=== PATIENT | male | born 1985 | race Caucasian/White ===

== ENCOUNTER 2018-01-16 22:58 | Inpatient (IN) | payer SELFPAY ==
[2018-01-16 22:57] VITALS: O2SAT 100
[~2018-01-16 22:58] MED LIST: ETOMIDATE 20 MG/10 ML VIAL IV PUSH ONE; LIDOCAINE HCL 2% 100 MG/5 ML SYRINGE IV PUSH ONE; MIDAZOLAM HCL 2 MG/2 ML VIAL IV PUSH ONE; SUCCINYLCHOLINE CHLORIDE 100 MG/5 ML SYRINGE IV PUSH ONE
[2018-01-16] MEDS ORDERED: DIPHTH/TETANUS/ACEL PERTUSSIS (BOOSTER) 0.5 ML VIAL/PFS IM ONE ×2 (23:01→23:14)
[2018-01-16] MEDS ORDERED: ceFAZolin 2 GM PREMIX 50 ML IV STA (23:01)
[2018-01-16] MEDS ORDERED: SODIUM CHLOR 0.9% 1000 ML INJ 1,000 ML IV SCH ×2 (23:01→23:49)
[2018-01-16 23:13] VITALS: O2SAT 100
[2018-01-16] MEDS ORDERED: ceFAZolin 2 GM PREMIX 50 ML ONE (23:14)
--- NOTE | 2018-01-16 23:20 | RADRPT ---
EXAM DATE/TIME: 01/16/2018 22:23 [facility] COMPARISON: No previous studies available for comparison. INDICATIONS : Trauma alert MEDICAL HISTORY : None. SURGICAL HISTORY : None. ENCOUNTER: Initial ACUITY: 1 day PAIN SCORE: Non-responsive. LOCATION: Bilateral chest FINDINGS: 2 AP supine views of the chest were obtained and demonstrate an endotracheal tube in place with the t ip approximately 2 cm above the tyree. There is mild hazy opacity in the right perihilar region and left lung base. The heart and mediastinal structures within normal limits. The bony thorax is intact in appearance. There is mild motion artifact. There is no visualized pneumothorax. CONCLUSION: 1. Suboptimal examination due to motion artifact and overlying artifact. 2. Mild hazy opacity in the right perihilar region and left lung base which could represent aspiratio n or lung contusion. Julio C Koroma MD on January 16, 2018 at 23:16 Board Certified Radiologist. This report was verified electronically.
--- NOTE | 2018-01-16 23:21 | RADRPT ---
EXAM DATE/TIME: 01/16/2018 22:23 [facility] COMPARISON: No previous studies available for comparison. INDICATIONS : Trauma alert MEDICAL HISTORY : None. SURGICAL HISTORY : None. ENCOUNTER: Initial ACUITY: 1 day PAIN SCORE: Non-responsive. LOCATION: Bilateral pelvis FINDINGS: A single AP view of the pelvis was obtained. There is mild motion artifact and overlying artifact. Th ere is a linear band of lucency projected over the mid left sacrum. The pubic rami and hips are intac t in appearance. The iliac wings appear unremarkable. CONCLUSION: 1. Suboptimal single view study secondary to motion artifact. 2. Apparent left sacral fracture. Julio C Koroma MD on January 16, 2018 at 23:18 Board Certified Radiologist. This report was verified electronically.
[2018-01-16 23:25] LABS: AUTOMATED NEUTROPHIL # 7.4 TH/MM3 (1.8-7.7); BASOPHIL # 0.1 TH/MM3 (0-0.2); BASOPHIL % 0.6 % (0.0-2.0); EOSINOPHIL # 0.1 TH/MM3 (0-0.4); HEMATOCRIT 35.1 % (39.0-51.0); HEMOGLOBIN 11.8 GM/DL (13.0-17.0); LYMPH % 25.4 % (9.0-44.0); LYMPHOCYTE # 2.8 TH/MM3 (1.0-4.8); MEAN CELL VOLUME 94.8 FL (80.0-100.0); MEAN CORPUSCULAR HEMOGLOBIN 31.7 PG (27.0-34.0); MEAN CORPUSCULAR HGB CONC 33.5 % (32.0-36.0); MEAN PLATELET VOLUME 6.5 FL (7.0-11.0); MONO % 6.6 % (0.0-8.0); MONOCYTE # 0.7 TH/MM3 (0-0.9); NEUT % 66.4 % (16.0-70.0); PLATELET COUNT 261 TH/MM3 (150-450); RED BLOOD COUNT 3.71 MIL/MM3 (4.50-5.90); WHITE BLOOD COUNT 11.2 TH/MM3 (4.0-11.0)
[2018-01-16] MEDS ORDERED: MIDAZOLAM 100 MG/100 ML INJ 100 ML ONE (23:27)
[2018-01-16] MEDS ORDERED: fentaNYL DRIP 250 ML ONE (23:27)
[2018-01-16] MEDS ORDERED: MIDAZOLAM HCL 5 MG/ML VIAL (1 ML) ONE (23:27)
[2018-01-16] MEDS ORDERED: IOHEXOL 350 MG/ML 10 ML VIAL (for RAD DIAG) IVCONTRAST ONE (23:28)
--- NOTE | 2018-01-16 23:28 | RADRPT ---
EXAM DATE/TIME: 01/16/2018 23:02 [facility] COMPARISON: No previous studies available for comparison. INDICATIONS : Trauma; fall. RADIATION DOSE: 56.35 CTDIvol (mGy) MEDICAL HISTORY : Non-responsive. SURGICAL HISTORY : Non-responsive. ENCOUNTER: Initial ACUITY: 1 day PAIN SCALE: Non-responsive LOCATION: cranial TECHNIQUE: Multiple contiguous axial images were obtained of the head. Using automated exposure control and adj ustment of the mA and/or kV according to patient size, radiation dose was kept as low as reasonably a chievable to obtain optimal diagnostic quality images. DICOM format image data is available electro nically for review and comparison. FINDINGS: CEREBRUM: The ventricles are normal for age. No evidence of midline shift, mass lesion, hemorrhage or acute in farction. No extra-axial fluid collections are seen. POSTERIOR FOSSA: The cerebellum and brainstem are intact. The 4th ventricle is midline. The cerebellopontine angle i s unremarkable. EXTRACRANIAL: The visualized portion of the orbits is intact. SKULL: There is a nondisplaced right occipital bone fracture which extends from the region of the foramen ma gnum cephalad up to the posterior vertex of the skull. There is extensive soft tissue swelling along the posterior vertex of the skull. There is a small air-fluid level in the right maxillary sinus. CONCLUSION: 1. Nondisplaced right occipital skull fracture. 2. No intracranial hemorrhage or mass effect. Julio C Koroma MD on January 16, 2018 at 23:23 Board Certified Radiologist. This report was verified electronically.
[2018-01-16] MEDS ORDERED: MIDAZOLAM 100 MG/100 ML INJ 100 ML IV PRN (23:30)
[2018-01-16] MEDS ORDERED: fentaNYL DRIP 250 ML IV PRN (23:30)
[2018-01-16] MEDS ORDERED: MIDAZOLAM HCL 2 MG/2 ML VIAL IV PUSH ONE (23:30)
--- NOTE | 2018-01-16 23:32 | RADRPT ---
EXAM DATE/TIME: 01/16/2018 23:02 [facility] COMPARISON: No previous studies available for comparison. INDICATIONS : Trauma; fall. RADIATION DOSE: 26.35 CTDIvol (mGy) MEDICAL HISTORY : Non-responsive. SURGICAL HISTORY : Non-responsive. ENCOUNTER: Initial ACUITY: 1 day PAIN SCORE: Non-responsive LOCATION: facial TECHNIQUE: Volumetric scanning of the facial bones was performed. Using automated exposure control and adjustme nt of the mA and/or kV according to patient size, radiation dose was kept as low as reasonably achiev able to obtain optimal diagnostic quality images. DICOM format image data is available electronicall y for review and comparison. FINDINGS: ORBITS: The orbital and infraorbital osseous structures are intact. The retroconal structures have a normal configuration. No radiopaque foreign bodies are seen. NASAL BONE: The nasal bone and maxillary spine are intact ZYGOMATIC ARCHES: Symmetric without evidence of fracture. SINUSES: The maxillary, ethmoid and frontal sinuses are intact. There is a small air-fluid level in right maxi llary sinus. The right central incisor is missing. NASAL CAVITY: The nasal septum is intact and midline. The lacrimal ducts are intact. There is soft tissue density throughout the central nasal passages. SOFT TISSUES: No radiopaque foreign bodies seen. No soft-tissue swelling is seen. INTRACRANIAL: No intracranial air seen. CRIBIFORM PLATE: Grossly intact. CONCLUSION: 1. Small air-fluid level in right maxillary sinus with no facial fracture. 2. Missing right central incisor. Julio C Koroma MD on January 16, 2018 at 23:26 Board Certified Radiologist. This report was verified electronically.
--- NOTE | 2018-01-16 23:35 | RADRPT ---
EXAM DATE/TIME: 01/16/2018 23:02 [facility] COMPARISON: No previous studies available for comparison. INDICATIONS : Trauma; fall. RADIATION DOSE: 16.88 CTDIvol (mGy) MEDICAL HISTORY : Non-responsive. SURGICAL HISTORY : Non-responsive. ENCOUNTER: Initial ACUITY: 1 day PAIN SCALE: Non-responsive LOCATION: neck TECHNIQUE: Volumetric scanning of the cervical spine was performed. Multiplanar reconstructions i n the sagittal, coronal and oblique axial planes were performed. Using automated exposure control a nd adjustment of the mA and/or kV according to patient size, radiation dose was kept as low as reason ably achievable to obtain optimal diagnostic quality images. DICOM format image data is available e lectronically for review and comparison. FINDINGS: The sagittal reconstructions demonstrate normal alignment and normal prevertebral soft tissues. The d ens is intact and there is a normal atlantoaxial relationship. The axial images demonstrate that the vertebral bodies and posterior elements are intact. The soft ti ssues are within normal limits. There is no evidence of acute fracture or malalignment. The known rig ht occipital fracture is again visualized. There is a nondisplaced fracture involving the anterior me dial left first rib. CONCLUSION: 1. No cervical fracture. 2. Nondisplaced fracture of the left anterior first rib. 3. Visualization of the known right occipital fracture. Julio C Koroma MD on January 16, 2018 at 23:31 Board Certified Radiologist. This report was verified electronically.
[2018-01-16 23:43] LABS: INTERNATIONAL NORMALIZED RATIO 1.1 RATIO; PROTHROMBIN TIME - PATIENT 11.1 SEC (9.8-11.6)
--- NOTE | 2018-01-16 23:43 | PD ---
HPI Chief Complaint: Trauma (Alert) Time Seen by Provider: 22:58 Travel History International Travel<30 days: No Contact w/Intl Traveler<30days: No Traveled to known affect area: No (unable to assess travel due to unscious intuabted ) History of Present Illness HPI Patient is a 18 [id number] [place] in [facility] onto a boat dock has a obvious injury laceration to the back of his head covered in vomitus when the paramedics arrived due to airway instability and altered mental status and a GCS of 3. H He is intubated in the field by the paramedics and brought into the ER ... Vitals were 74/30 en route he is vitals were 74/30 in route and he is arriving boarded collared obvious a large amount of blood on the board and he is arriving boarded collared obvious and large amount of blood on the board with a 5 cm 5 cm laceration to the parietal left side. . Pupils are 3 mm equal bilaterally minimally reactive area. Patient's lungs on the FAST exam are up bilaterally patient's abdomen fast is negative. P Patient is stabilized with 2 L of fluid. . The ET tube ET tube tube is in place chest x-ray shows the ET tube is in place and pelvic x-ray shows no fracture. Patient is CT face head neck abdomen chest and is turned over to Dr. Nunez Ancef 2 g and tetanus IM is givenAncef 2 g and tetanus IM is given 2 L of fluid and patient is on the CT initial shows no signifi head bleed Dr. Nunez assumes care of the patient Dr. Nunez assumed care of the patient [facility] Social History Tobacco Use: No (unable to fully assess tobacco due to intubated sedated unconscious) Allergies-Medications (Allergen,Severity, Reaction): Coded Allergies: No Allergy Information Available (Unverified , 01/16/18) Review of Systems ROS Limitations: Intubated, Altered Mental Status, Unresponsive Physical Exam Narrative GENERAL: SKIN: Warm and dry. HEAD: + traumatic. Normocephalic. Large laceration with Large laceration with multiple hematomas multiple hematomas on the backboard from the left parietal area on the backboard from the left parietal area I can feel with my finger a deficit in the skull the skull seems intact. I can feel with my finger a deficit in the skull but the skull seems intact I do not feel any brain matter EYES: Pupils 3 mm 3 mm equal. No disconjugate gaze he is staring forward No disconjugate gaze he is staring forward no reaction to light no reaction to light. ENT: ET tube in placeET tube in place CARDIOVASCULAR: Regular rate and rhythm. Initially mildly hypotensive at 80/62 L of fluid brings her pressure up to 106/70 RESPIRATORY: No accessory muscle use. Clear to auscultation. Breath sounds equal bilaterally. Point of care bedside fast lungs are up bilaterally Point-of -care bedside fast lungs are up bilaterally GASTROINTESTINAL: Abdomen soft, non-tender, nondistended. Hepatic and splenic margins not palpable. Point of care bedside fast abdomen no free fluid in the abdomen fast negative [id number] bedside fast abdomen no free fluid in the abdomen fast negative MUSCULOSKELETAL: Extremities without clubbing, cyanosis, or edema. No obvious deformities. NEUROLOGICAL: Obtunded . Patient intubated and sedated, but GCS was 3 according to EMS prior to sedation for tube Data Data Last Documented VS Vital Signs Date Time Temp Pulse Resp B/P (MAP) Pulse Ox O2 Delivery O2 Flow Rate FiO2 01/17/18 00:00 100 01/17/18 00:00 93.2 01/17/18 00:00 75 21 91/50 (64) 100 Orders Orders I-Stat Profile (01/16/18 22:59) Complete Blood Count With Diff (01/16/18 22:59) Prothrombin Time / Inr (Pt) (01/16/18 22:59) Act Partial Throm Time (Ptt) (01/16/18 22:59) Type And Screen (01/16/18 22:59) Chest, Single Ap (01/16/18 22:59) Pelvis, Ap Only (Routine) (01/16/18 22:59) Ct Brain W/O Iv Contrast(Rout) (01/16/18 22:59) Ct Cerv Spine W/O Contrast (01/16/18 22:59) Ct Abd/Pel W Iv Contrast(Rout) (01/16/18 22:59) Ct Thorax/ Chest W Iv Contrast (01/16/18 22:59) Ct Facial Bones W/O Iv Cont (01/16/18 22:59) Iv Access Insert/Monitor (01/16/18 22:59) Ecg Monitoring (01/16/18 22:59) Oximetry (01/16/18 22:59) Oxygen Administration (01/16/18 22:59) Ed Poc Ultrasound (01/16/18 22:59) Nzba-Kcb-Pjbxig (Booster) Inj (Boostrix (01/16/18 23:14) Cefazolin 2 Gm Premix (Ancef 2 Gm Premix (01/16/18 23:14) Fentanyl Inj (Fentanyl Inj) (01/16/18 23:30) Midazolam Inj (Versed Inj) (01/16/18 23:30) Midazolam Inj (Versed Inj) (01/16/18 23:27) Midazolam 100 Mg/100 Ml Inj (Versed Inj) (01/16/18 23:27) Fentanyl Drip (Fentanyl Drip) (01/16/18 23:27) Iohexol 350 Inj (Omnipaque 350 Inj) (01/16/18 23:28) Cefazolin 2 Gm Premix (Ancef 2 Gm Premix (01/16/18 23:01) Xzky-Lgq-Divdbs (Booster) Inj (Boostrix (01/16/18 23:01) Sodium Chlor 0.9% 1000 Ml Inj (Ns 1000 M (01/16/18 23:01) Admit To Inpatient (01/16/18 ) Vital Signs (Adult) TOO.QSHIFT (01/16/18 23:49) Intake + Output TOO.Q8H (01/16/18 23:49) Neuro Checks TOO.Q1H (01/16/18 23:49) Activity Bed Rest (01/16/18 23:49) Diet Npo (01/17/18 Breakfast) ^ Orogastric Tube (01/16/18 23:49) Scd / Juan Alberto / Foot Pump TOO.QSHIFT (01/16/18 23:49) ^ Cervical Collar (01/16/18 23:49) Instruction (01/16/18 23:49) Complete Blood Count With Diff (01/17/18 06:00) Comprehensive Metabolic Panel (01/17/18 06:00) Sodium Chlor 0.9% 1000 Ml Inj (Ns 1000 M (01/16/18 23:49) Sodium Chloride 0.9% Flush (Ns Flush) (01/17/18 00:00) Enalaprilat Inj (Vasotec Inj) (01/17/18 00:00) Ondansetron Inj (Zofran Inj) (01/17/18 00:00) Pantoprazole Inj (Protonix Inj) (01/17/18 00:00) Multivitamin Inj (Mvi-12 Inj)... (01/17/18 02:00) Consult Wholesale Buyer (01/16/18 ) ^ Initiate Protocol (01/16/18 23:49) Instruction (01/16/18 23:49) [facility] Nursing Information (01/17/18 00:00) Chlorhexidine 2% Cloth (Chlorhexidine 2% (01/17/18 04:00) Chlorhexidine 2% Cloth (Chlorhexidine 2% (01/17/18 00:00) Mrsa Pcr Surveillance (01/16/18 23:49) Inpatient Certification (01/16/18 ) Consult Heidi Gts (01/16/18 ) Admit Order (Ed Use Only) (01/16/18 23:58) Consult Neurosurgery (01/17/18 00:00) Phosphorus (Po4) (01/17/18 06:00) Labs Laboratory Tests Test 01/16/18 00:00 01/16/18 23:00 Nasal Screen MRSA (PCR) MRSA NOT DETECTED White Blood Count 11.2 TH/MM3 Red Blood Count 3.71 MIL/MM3 Hemoglobin 11.8 GM/DL Bedside Hemoglobin 12.2 G/DL Hematocrit 35.1 % Bedside Hematocrit 36.0 % Mean Corpuscular Volume 94.8 FL Mean Corpuscular Hemoglobin 31.7 PG Mean Corpuscular Hemoglobin Concent 33.5 % Red Cell Distribution Width 14.0 % Platelet Count 261 TH/MM3 Mean Platelet Volume 6.5 FL Neutrophils (%) (Auto) 66.4 % Lymphocytes (%) (Auto) 25.4 % Monocytes (%) (Auto) 6.6 % Eosinophils (%) (Auto) 1.0 % Basophils (%) (Auto) 0.6 % Neutrophils # (Auto) 7.4 TH/MM3 Lymphocytes # (Auto) 2.8 TH/MM3 Monocytes # (Auto) 0.7 TH/MM3 Eosinophils # (Auto) 0.1 TH/MM3 Basophils # (Auto) 0.1 TH/MM3 CBC Comment DIFF FINAL Differential Comment Prothrombin Time 11.1 SEC Prothromb Time International Ratio 1.1 RATIO Activated Partial Thromboplast Time 23.3 SEC Bedside Sodium 138 MMOL/L Bedside Potassium 2.9 MMOL/L Bedside Chloride 103 MMOL/L Bedside Blood Urea Nitrogen 14 MG/DL Bedside Creatinine 1.3 MG/DL Bedside Glucose 224 MG/DL Ethyl Alcohol Level 354 MG/DL MDM Medical Decision Making Medical Screen Exam Complete: Yes Emergency Medical Condition: Yes Differential Diagnosis head bleed vs abdo intraabdominal injury vs fractured neck , vs cervical spine injury other. Narrative Course pt has head injury bleeding and unconscious , worry for severe head bleed vs cervical fracture vs etoh obtundation vs combination etoh and head injury with severe contusion to brain pt remains unconscious--> coma , admitted after CT reviewed with Dr Nunez , No obvious bleed on CT no obvious fracture , SICU trauma admit ICU Critical Care Narrative 30minutes cc time trauma bay time Diagnosis Primary Impression: Trauma Additional Impressions: Head injury Qualified Codes: S09.90XA - Unspecified injury of head, initial encounter Fall (on)(from) sidewalk curb, sequela Admitting Information Admitting Physician Requests: Admit Armando Baugh MD Jan 16, 2018 23:43
[2018-01-16] MEDS: MIDAZOLAM 100 MG/NS 100 ML DRIP Premix IV PRN (23:45)
[2018-01-16] MEDS: fentaNYL 2,500 MCG/NS 250 ML IV PRN (23:45)
--- NOTE | 2018-01-16 23:51 | PD.CONS ---
[facility] Service Critical Care Medicine Consult Requested By Primary Care Physician Unknown History of Present Illness Young gentleman in his 20s originally from [facility] fell [place] the causeway in [facility] onto a boat dock , has an obvious injury laceration to the back of his head covered in vomitus when the paramedics arrived. Due to an airway instability and altered mental status and a GCS of 3 he was intubated in the field by the paramedics and brought into the ER. On arrival his vitals were 74/30. He received IV fluid resuscitation and underwent a CT surveillance per trauma protocol. Review of Systems ROS Unable to obtain patient is sedated and intubated Past Family Social History Allergies: Coded Allergies: No Allergy Information Available (Unverified , 01/16/18) Past Medical History Unable to obtain Past Surgical History Unable to obtain Reported Medications Unable to obtain Active Ordered Medications Current Medications Medications (Trade) Dose Ordered Sig/Ree Route PRN Reason Start Time Stop Time Status Last Admin Dose Admin Sodium Chloride 1,000 ml @ 150 mls/hr Q6H40M IV 01/16/18 23:49 01/16/18 23:49 Sodium Chloride (NS Flush) 2 ml UNSCH PRN IV FLUSH FLUSH AFTER USING IV ACCESS 01/17/18 00:00 Enalaprilat (Vasotec Inj) 1.25 mg Q8H PRN IV PUSH SBP>180, DBP>95 01/17/18 00:00 Ondansetron HCl (Zofran Inj) 4 mg Q6H PRN IV PUSH NAUSEA OR VOMITING 01/17/18 00:00 01/17/18 00:56 Pantoprazole Sodium (Protonix Inj) 40 mg Q24H IVP 01/17/18 00:00 01/17/18 00:56 Multivitamins 10 ml/Thiamine HCl 100 mg/Folic Acid 1 mg/Sodium Chloride 511.2 ml @ 125 mls/hr Q24H IV 01/17/18 02:00 01/19/18 06:06 Miscellaneous Information 1 Q361D XX 01/17/18 00:00 Chlorhexidine Gluconate (Chlorhexidine 2% Cloth) 3 pack Taper DAILY@04 TOP 01/17/18 04:00 01/13/19 03:59 Chlorhexidine Gluconate (Chlorhexidine 2% Cloth) 3 pack UNSCH PRN TOP HYGIENIC CARE 01/17/18 00:00 Norepinephrine Bitartrate 250 ml @ 18.75 mls/ hr TITRATE PRN IV Maintain MAP > 65 mmHg 01/17/18 03:00 01/17/18 00:45 Sodium Chloride 2,000 ml @ 999 mls/hr Q2H1M ONCE IV 01/17/18 03:00 01/17/18 05:00 01/17/18 03:22 Miscellaneous Information D/C ICU ELECTROLYTE ORDERS... UNSCH PRN .XX SEE DOSE INSTRUCTIONS 01/17/18 03:15 Miscellaneous Information ICU - CALL ORDERING PHYSIC... UNSCH PRN .XX SEE DOSE INSTRUCTIONS 01/17/18 03:15 Potassium Chloride 100 ml @ 25 mls/hr UNSCH PRN IV ELECTROLYTE REPLACEMENT 01/17/18 03:15 Potassium Bicarb/ Potassium Chloride (K-Lyte Cl Eff) 50 meq UNSCH PRN PO ELECTROLYTE REPLACEMENT 01/17/18 03:15 Potassium Chloride 100 ml @ 50 mls/hr UNSCH PRN IV ELECTROLYTE REPLACEMENT 01/17/18 03:15 Magnesium Sulfate 4 gm/Sodium Chloride 108 ml @ 54 mls/hr UNSCH PRN IV ELECTROLYTE REPLACEMENT 01/17/18 03:15 Magnesium Sulfate 2 gm/Sodium Chloride 104 ml @ 52 mls/hr UNSCH PRN IV ELECTROLYTE REPLACEMENT 01/17/18 03:15 Magnesium Oxide (Mag-Ox) 800 mg UNSCH PRN PO ELECTROLYTE REPLACEMENT 01/17/18 03:15 Sodium Phosphate 30 mmol/Sodium Chloride 260 ml @ 43.333 mls/ hr UNSCH PRN IV ELECTROLYTE REPLACEMENT 01/17/18 03:15 Potassium Phosphate (K-Phos) 2,000 mg UNSCH PRN PO ELECTROLYTE REPLACEMENT 01/17/18 03:15 Potassium Phosphate 30 mmol/ Sodium Chloride 260 ml @ 43.333 mls/ hr UNSCH PRN IV ELECTROLYTE REPLACEMENT 01/17/18 03:15 Midazolam HCl 100 ml @ 2 mls/hr TITRATE PRN IV SEDATION 01/17/18 03:15 01/16/18 23:45 Fentanyl Citrate 250 ml @ 5 mls/hr TITRATE PRN IV Sedation 01/17/18 03:15 01/16/18 23:45 Family History Unable to obtain Social History Unable to obtain Physical Exam Vital Signs Vital Signs Date Time Temp Pulse Resp B/P (MAP) Pulse Ox O2 Delivery O2 Flow Rate FiO2 01/17/18 02:10 79 86/50 01/17/18 00:42 93.2 16 100 01/17/18 00:00 100 Physical Exam GENERAL: Well-nourished, well-developed patient. Sedated and intubated SKIN: Warm and dry. HEAD: Normocephalic. Trauma laceration on the back of the head. EYES: No scleral icterus. No injection or drainage. NECK: Supple, trachea midline. No JVD or lymphadenopathy. CARDIOVASCULAR: Regular rate and rhythm without murmurs, gallops, or rubs. RESPIRATORY: Breath sounds equal bilaterally. No accessory muscle use. GASTROINTESTINAL: Abdomen soft, non-tender, nondistended. MUSCULOSKELETAL: No cyanosis, or edema. BACK: Nontender without obvious deformity. NEURO EXAM: GCS: 3 Mental Status: He was are 3 mm equal and brisk. Laboratory Laboratory Tests Test 01/16/18 23:00 White Blood Count 11.2 Red Blood Count 3.71 Hemoglobin 11.8 Bedside Hemoglobin 12.2 Hematocrit 35.1 Bedside Hematocrit 36.0 Mean Corpuscular Volume 94.8 Mean Corpuscular Hemoglobin 31.7 Mean Corpuscular Hemoglobin Concent 33.5 Red Cell Distribution Width 14.0 Platelet Count 261 Mean Platelet Volume 6.5 Neutrophils (%) (Auto) 66.4 Lymphocytes (%) (Auto) 25.4 Monocytes (%) (Auto) 6.6 Eosinophils (%) (Auto) 1.0 Basophils (%) (Auto) 0.6 Neutrophils # (Auto) 7.4 Lymphocytes # (Auto) 2.8 Monocytes # (Auto) 0.7 Eosinophils # (Auto) 0.1 Basophils # (Auto) 0.1 CBC Comment DIFF FINAL Differential Comment Prothrombin Time 11.1 Prothromb Time International Ratio 1.1 Activated Partial Thromboplast Time 23.3 Bedside Sodium 138 Bedside Potassium 2.9 Bedside Chloride 103 Bedside Blood Urea Nitrogen 14 Bedside Creatinine 1.3 Bedside Glucose 224 Result Diagram: 01/16/182299 Imaging Last 24 hours Impressions Pelvis X-Ray 01/16/182258 Signed Impressions: Service Date/Time: Tuesday, January 16, 2018 22:23 - CONCLUSION: 1. Suboptimal single view study secondary to motion artifact. 2. Apparent left sacral fracture. Julio C Koroma MD Maxillofacial CT 01/16/182258 Signed Impressions: Service Date/Time: Tuesday, January 16, 2018 23:02 - CONCLUSION: 1. Small air-fluid level in right maxillary sinus with no facial fracture. 2. Missing right central incisor. Julio C Koroma MD Head CT 01/16/182258 Signed Impressions: Service Date/Time: Tuesday, January 16, 2018 23:02 - CONCLUSION: 1. Nondisplaced right occipital skull fracture. 2. No intracranial hemorrhage or mass effect. Julio C Koroma MD Chest X-Ray 01/16/182258 Signed Impressions: Service Date/Time: Tuesday, January 16, 2018 22:23 - CONCLUSION: 1. Suboptimal examination due to motion artifact and overlying artifact. 2. Mild hazy opacity in the right perihilar region and left lung base which could represent aspiration or lung contusion. Julio C Koroma MD Chest CT 01/16/182258 Signed Impressions: Service Date/Time: Tuesday, January 16, 2018 23:18 - CONCLUSION: 1. Multiple areas of alveolar consolidation in both lower lobes which could represent lung contusion and or aspiration. There is no pneumothorax. 2. Subtle nondisplaced fracture of the left medial first rib. Nondisplaced fracture through the left transverse process of the T11 vertebra. The vertebral bodies are intact. 3. Visualization of the previously noted left L1 transverse fracture and splenic laceration. Please see abdomen CT for further details. Julio C Koroma MD Cervical Spine CT 01/16/182258 Signed Impressions: Service Date/Time: Tuesday, January 16, 2018 23:02 - CONCLUSION: 1. No cervical fracture. 2. Nondisplaced fracture of the left anterior first rib. 3. Visualization of the known right occipital fracture. Julio C Koroma MD Abdomen/Pelvis CT 01/16/182258 Signed Impressions: Service Date/Time: Tuesday, January 16, 2018 23:18 - CONCLUSION: 1. Grade 2 splenic laceration involving the medial tip of the spleen with small surrounding hematoma. 2. Subtle nondisplaced oblique fracture through the inferior right lateral aspect of the L5 vertebral body. The other lumbar vertebral bodies are intact. The sacrum is intact as well. 3. Nondisplaced fracture through the left L1 transverse process. 4. Areas of consolidation in both posterior lower lobes which may represent contusion and/or aspiration. Please see chest CT for further details. Julio C Koroma MD Assessment and Plan Assessment and Plan Respiratory failure - Intubated for an airway protection - No weaning until neurologically improved - Underlying pulmonary contusion - Aspiration pneumonia/pneumonitis - CXR and ABG daily - DuoNeb's when necessary - Chest PT as tolerated Spleen laceration - Monitor H&H - Management per trauma surgeon Alcoholic ketoacidosis - Potassium, phosphate, magnesium replacement per protocol - IV hydration T and L-spine fracture - Neurosurgery consultation Nondisplaced occipital fracture - Per neurosurgeon DVT GI prophylaxis - Teds SCDs - Pharmacological DVT prophylaxis per trauma surgeon - Pepcid Critical Care: The total critical care time was 35 minutes. Time to perform other separately billable procedures was not included in the critical care time. Anand De La Cruz MD Jan 16, 2018 23:51
--- NOTE | 2018-01-16 23:54 | RADRPT ---
EXAM DATE/TIME: 01/16/2018 23:18 [facility] COMPARISON: No previous studies available for comparison. INDICATIONS : Trauma; fall. IV CONTRAST: 97 cc Omnipaque 350 (iohexol) IV ; Cumulative dose for multiple exams. ORAL CONTRAST: No oral contrast ingested. RADIATION DOSE: 5.13 CTDIvol (mGy) ; Combined studies - Thorax/Abdomen/Pelvis MEDICAL HISTORY : Non-responsive. SURGICAL HISTORY : Non-responsive. ENCOUNTER: Initial ACUITY: 1 day PAIN SCALE: Non-responsive LOCATION: abdomen TECHNIQUE: Volumetric scanning of the abdomen and pelvis was performed. Using automated exposure control and ad justment of the mA and/or kV according to patient size, radiation dose was kept as low as reasonably achievable to obtain optimal diagnostic quality images. DICOM format image data is available electro nically for review and comparison. FINDINGS: LOWER LUNGS: There are areas of consolidation in both posterior lung bases with no pneumothorax. LIVER: Homogeneous density without lesion. There is no dilation of the biliary tree. No calcified gallston es. SPLEEN: Spleen is small in size with a grade 2 laceration to the medial tip measuring approximately 1.3 cm. A small amount of surrounding hematoma. PANCREAS: Within normal limits. KIDNEYS: Normal in size and shape. There is no mass, stone or hydronephrosis. ADRENAL GLANDS: Within normal limits. VASCULAR: There is no aortic aneurysm. BOWEL/MESENTERY: The stomach, small bowel, and colon demonstrate no acute abnormality. There is no free intraperitone al air or fluid. ABDOMINAL WALL: Within normal limits. RETROPERITONEUM: There is no lymphadenopathy. BLADDER: No wall thickening or mass. REPRODUCTIVE: Within normal limits. INGUINAL: There is no lymphadenopathy or hernia. MUSCULOSKELETAL: There is a nondisplaced fracture through the left L1 transverse process. The is also a small nondispl aced oblique fracture through the right inferior lateral L5 vertebral body. The other vertebral justine s are intact. The sacrum is intact as well. CONCLUSION: 1. Grade 2 splenic laceration involving the medial tip of the spleen with small surrounding hematoma. 2. Subtle nondisplaced oblique fracture through the inferior right lateral aspect of the L5 vertebral body. The other lumbar vertebral bodies are intact. The sacrum is intact as well. 3. Nondisplaced fracture through the left L1 transverse process. 4. Areas of consolidation in both posterior lower lobes which may represent contusion and/or aspirati on. Please see chest CT for further details. Julio C Koroma MD on January 16, 2018 at 23:44 Board Certified Radiologist. This report was verified electronically.
[2018-01-16 23:55] VITALS: O2SAT 100
--- NOTE | 2018-01-16 23:59 | RADRPT ---
EXAM DATE/TIME: 01/16/2018 23:18 [facility] COMPARISON: No previous studies available for comparison. INDICATIONS : Trauma; fall. IV CONTRAST: 97 cc Omnipaque 350 (iohexol) IV ; Cumulative dose for multiple exams. RADIATION DOSE: 5.13 CTDIvol (mGy) ; Combined studies - Thorax/Abdomen/Pelvis MEDICAL HISTORY : Non-responsive. SURGICAL HISTORY : Non-responsive. ENCOUNTER: Initial ACUITY: 1 day PAIN SCALE: Non-responsive LOCATION: chest TECHNIQUE: Volumetric scanning of the chest was performed. Using automated exposure control and adjustment of t he mA and/or kV according to patient size, radiation dose was kept as low as reasonably achievable to obtain optimal diagnostic quality images. DICOM format image data is available electronically for review and comparison. Follow-up recommendations for detected pulmonary nodules are based at a minimum on nodule size and pa tient risk factors according to Fleischner Society Guidelines. FINDINGS: LUNGS: There is no pneumothorax. There are multiple areas of alveolar consolidative infiltrate in both lower lobes. No concerning pulmonary nodule is visualized. PLEURA: There is no pleural thickening or pleural effusion. MEDIASTINUM: The heart and great vessels demonstrate no acute abnormality. There is no mediastinal or hilar lymph adenopathy. There are multiple calcified mediastinal lymph nodes. AXILLAE: Within normal limits. No lymphadenopathy. SKELETAL: There is a subtle nondisplaced fracture involving the left anterior first rib. There is also a nondis placed fracture involving the T11 left transverse process. The known fracture of the L1 left transver se process is again visualized. MISCELLANEOUS: The grade 2 laceration to the medial aspect of the spleen is again visualized. Please see abdomen CT for further details. CONCLUSION: 1. Multiple areas of alveolar consolidation in both lower lobes which could represent lung contusion and or aspiration. There is no pneumothorax. 2. Subtle nondisplaced fracture of the left medial first rib. Nondisplaced fracture through the left transverse process of the T11 vertebra. The vertebral bodies are intact. 3. Visualization of the previously noted left L1 transverse fracture and splenic laceration. Please s ee abdomen CT for further details. Julio C Koroma MD on January 16, 2018 at 23:52 Board Certified Radiologist. This report was verified electronically.
[2018-01-17] VITALS (19 sets, daily range): BP systolic 85–136; BP diastolic 50–70; PULSE 69–116; RESP 16–21; TEMP 93.2–100.8; O2SAT 95–100
[2018-01-17] MEDS ORDERED: MISCELLANEOUS NURSING INFORMATION XX SCH
[2018-01-17] MEDS ORDERED: ENALAPRILAT 1.25 MG/ML VIAL IV PUSH PRN
[2018-01-17] MEDS ORDERED: CHLORHEXIDINE GLUCONATE 2 % 1 PACK (2 CLOTHS) TOP PRN
[2018-01-17] MEDS ORDERED: SODIUM CHLORIDE 0.9% FLUSH 10 ML FLUSH IV FLUSH PRN
[2018-01-17] MEDS ORDERED: NOREPINEPHRINE 4 MG/4 ML AMP ONE (00:52)
[2018-01-17] MEDS: PANTOPRAZOLE SODIUM 40 MG VIAL IVP SCH ×2 (00:56→23:48)
[2018-01-17] MEDS: ONDANSETRON HCL 4 MG/2 ML VIAL IV PUSH PRN (00:56)
[2018-01-17] MEDS: CHLORHEXIDINE GLUCONATE 2 % 1 PACK (2 CLOTHS) TOP SCH (01:10)
[2018-01-17] MEDS ORDERED: NOREPINEPHRINE 4 MG/D5W 250 ML IV PRN ×2 (03:00→05:00)
[2018-01-17] MEDS ORDERED: SODIUM CHLOR 0.9% 1000 ML INJ 2,000 ML IV ONE (03:00)
[2018-01-17] MEDS ORDERED: fentaNYL 2,500 MCG/NS 250 ML IV PRN (03:15)
[2018-01-17] MEDS ORDERED: ICU - POTASSIUM CHLORIDE/AQUEOUS SOLN 40 MEQ/100 ML IVPB IV PRN (03:15)
[2018-01-17] MEDS ORDERED: ICU - MAGNESIUM SULFATE 4 GM/NS 100 ML IV PRN ×2 (03:15)
[2018-01-17] MEDS ORDERED: ICU - MAGNESIUM SULFATE 2 GM/NS 100 ML IV PRN ×2 (03:15)
[2018-01-17] MEDS ORDERED: ICU - POTASSIUM PHOSPHATE MONOBASIC 500 MG TAB PO PRN (03:15)
[2018-01-17] MEDS ORDERED: ICU - MAGNESIUM OXIDE 400 MG TAB PO PRN (03:15)
[2018-01-17] MEDS ORDERED: ICU - POTASSIUM PHOSPHATE 30 MMOL/NS 250 ML IV PRN ×2 (03:15)
[2018-01-17] MEDS ORDERED: POTASSIUM CHLORIDE 25 MEQ EFFERVESCENT TAB PO PRN ×2 (03:15→03:45)
[2018-01-17] MEDS ORDERED: ICU - CALL ORDERING PHYSICIAN PRN (03:15)
[2018-01-17] MEDS ORDERED: ICU - D/C ICU ELECTROLYTE ORDERS PRN (03:15)
[2018-01-17] MEDS ORDERED: ICU - POTASSIUM CHLORIDE/AQUEOUS SOLN 20 MEQ/100 ML IVPB IV PRN (03:15)
[2018-01-17] MEDS ORDERED: ICU - SODIUM PHOSPHATE 30 MMOL/NS 250 ML IV PRN ×2 (03:15)
[2018-01-17] MEDS ORDERED: MIDAZOLAM 100 MG/NS 100 ML DRIP Premix IV PRN (03:15)
--- NOTE | 2018-01-17 03:32 | PD.PROCEDR ---
Procedure Note Procedure Central line placement A time-out was completed verifying correct patient, procedure, site, positioning , and special equipment if applicable. The patient was placed in a dependent position appropriate for central line placement based on the vein to be cannulated. The patients right shoulder was prepped and draped in sterile fashion. 1% Lidocaine was used to anesthetize the surrounding skin area. A triple lumen 9-N[place] Cordis catheter was introduced into the the right subclavian vein using the Seldinger technique. The catheter was threaded smoothly over the guide wire and appropriate blood return was obtained. Each lumen of the catheter was evacuated of air and flushed with sterile saline. The catheter was then sutured in place to the skin and a sterile dressing applied. Perfusion to the extremity distal to the point of catheter insertion was checked and found to be adequate. Estimated Blood Loss: 1ml The patient tolerated the procedure well and there were no complications. Anand De La Cruz MD Jan 17, 2018 03:32
--- NOTE | 2018-01-17 03:34 | RADRPT ---
EXAM DATE/TIME: 01/17/2018 02:59 [facility] COMPARISON: CHEST SINGLE AP, January 16, 2018, 22:23. INDICATIONS : Central line placement. MEDICAL HISTORY : None. SURGICAL HISTORY : None. ENCOUNTER: Initial ACUITY: 1 day PAIN SCORE: Non-responsive. LOCATION: Bilateral chest FINDINGS: A single AP semierect view of the chest was obtained and demonstrates interval placement of a nasogas tric tube which is seen coursing through the esophagus into the stomach. The endotracheal tube remain s in place with the tip approximately 3 cm above the tyree. There has been placement of a left subcl mattie central venous line with tip projected over the superior vena cava. There is no pneumothorax. N ew hazy alveolar opacities are present in the perihilar regions and both lung bases. The heart size i s within normal limits. There is no effusion. CONCLUSION: 1. Interval placement of right subclavian central venous line with no pneumothorax. 2. Interval placement of nasogastric tube. 3. New bibasilar and perihilar alveolar opacities which may represent pulmonary edema, contusion or a spiration. Julio C Koroma MD on January 17, 2018 at 3:31 Board Certified Radiologist. This report was verified electronically.
[2018-01-17] MEDS ORDERED: SODIUM PHOSPHATE INJ 30 MMOL in SODIUM CHLOR 0.9% 250 ML INJ 240 ML IV PRN (03:45)
[2018-01-17] MEDS ORDERED: MAGNESIUM SULFATE INJ 4 GM in SODIUM CHLORIDE 0.9% INJ 92 ML IV PRN (03:45)
[2018-01-17] MEDS ORDERED: POTASSIUM PHOSPHATE MONOBASIC 500 MG TAB PO/TUBE PRN (03:45)
[2018-01-17] MEDS ORDERED: POTASSIUM CHLOR 40 MEQ PREMIX 100 ML IV PRN (03:45)
[2018-01-17] MEDS ORDERED: POTASSIUM CHLOR 20 MEQ PREMIX 100 ML IV PRN ×2 (03:45)
[2018-01-17] MEDS ORDERED: MAGNESIUM SULFATE INJ 2 GM in SODIUM CHLORIDE 0.9% INJ 96 ML IV PRN (03:45)
[2018-01-17] MEDS ORDERED: POTASSIUM PHOSPHATE MONOBASIC 500 MG TAB PO PRN (03:45)
[2018-01-17] MEDS ORDERED: MAGNESIUM OXIDE 400 MG TAB PO PRN (03:45)
[2018-01-17] MEDS ORDERED: VASOPRESSIN INJ 40 UNITS in DEXTROSE 5% IN WATER 100ML INJ 98 ML IV SCH ×2 (04:14)
[2018-01-17] MEDS ORDERED: SODIUM BICARBONATE 8.4% SOLN 50 MEQ/50 ML VIAL IV ONE (04:15)
[2018-01-17] MEDS ORDERED: VASOPRESSIN 20 UNITS/ML VIAL ONE (04:20)
[2018-01-17] MEDS: MULTIVITAMIN INJ 10 ML, THIAMINE INJ 100 MG, FOLIC ACID INJ 1 MG in SODIUM CHLORID 0.9%... IV SCH (04:39)
[2018-01-17 04:43] LABS: BASOPHIL % 0.6 % (0.0-2.0); EOSINOPHIL % 0.1 % (0.0-4.0); HEMATOCRIT 35.3 % (39.0-51.0); LYMPH % 27.8 % (9.0-44.0); LYMPHOCYTE # 0.4 TH/MM3 (1.0-4.8); MEAN CELL VOLUME 89.9 FL (80.0-100.0); MEAN CORPUSCULAR HEMOGLOBIN 30.4 PG (27.0-34.0); MEAN CORPUSCULAR HGB CONC 33.8 % (32.0-36.0); MEAN PLATELET VOLUME 6.5 FL (7.0-11.0); MONOCYTE # 0.1 TH/MM3 (0-0.9); NEUT % 65.5 % (16.0-70.0); PLATELET COUNT 192 TH/MM3 (150-450); RED BLOOD COUNT 3.93 MIL/MM3 (4.50-5.90); RED CELL DISTRIBUTION WIDTH 16.9 % (11.6-17.2); WHITE BLOOD COUNT 1.5 TH/MM3 (4.0-11.0)
[2018-01-17] MEDS: VASOPRESSIN INJ 40 UNITS in SODIUM CHLORIDE 0.9% INJ 98 ML IV SCH (05:00)
[2018-01-17 05:11] LABS: ALBUMIN 2.3 GM/DL (3.4-5.0); BICARBONATE 16.8 MEQ/L (21.0-32.0); CALCIUM 5.9 MG/DL (8.5-10.1); CREATININE 0.52 MG/DL (0.60-1.30); PHOSPHORUS 2.7 MG/DL (2.5-4.9); TOTAL BILIRUBIN ADULT 0.4 MG/DL (0.2-1.0); TOTAL PROTEIN 4.7 GM/DL (6.4-8.2)
[2018-01-17] MEDS ORDERED: RESP: ALBUTEROL 2.5 MG/IPRATROPIUM 0.5 MG NEB (PRN) NEB (05:45)
[2018-01-17] MEDS: NOREPINEPHRINE INJ 4 MG in SODIUM CHLOR 0.9% 250 ML INJ 250 ML IV PRN ×2 (06:09→08:15)
[2018-01-17] MEDS: POTASSIUM CHLOR 40 MEQ PREMIX 100 ML IV PRN ×2 (06:48→10:31)
[2018-01-17] MEDS: RESP: ALBUTEROL 2.5 MG/IPRATROPIUM 0.5 MG NEB (SCH) NEB ×3 (07:32→20:03)
[2018-01-17 07:38] LABS: NEUTROPHIL # MANUAL DIFF 0.9 TH/MM3 (1.8-7.7)
[2018-01-17 07:39] LABS: BANDS 26 % (0-6); LYMPHOCYTES 37 % (9-44); METAMYELOCYTES 1 % (0-1); MONOCYTES 2 % (0-8); POLYS (SEG NEUTROPHILS) 34 % (16-70)
[2018-01-17 07:41] LABS: OVALOCYTES 1+ (NORMAL)
[2018-01-17] MEDS: CHLORHEXIDINE 0.12% (ORAL KIT) 15 ML CUP MT SCH ×2 (08:00→20:12)
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
[2018-01-17] MEDS ORDERED: CALCIUM GLUCONATE INJ 1 GM in DEXTROSE 5% IN WATER 100ML INJ 100 ML IV ONE ×2 (10:00)
[2018-01-17] MEDS: AMPICILLIN-SULBACTAM INJ 3 GM in SODIUM CHLORIDE 0.9% INJ 100 ML IV SCH ×3 (10:31→21:27)
[2018-01-17] MEDS: LACTATED RINGER'S 1000 ML INJ 1,000 ML IV SCH ×2 (10:31→21:24)
[2018-01-17] MEDS ORDERED: GELFOAM SIZE 100 ONE (11:00)
[2018-01-17] MEDS ORDERED: BUPIVACAINE/EPINEPHRINE 0.5% PF 30 ML VIAL ONE (11:00)
[2018-01-17] MEDS ORDERED: THROMBIN (TOPICAL) 5,000 UNIT VIAL ONE (11:00)
[2018-01-17] MEDS ORDERED: GENTAMICIN SULFATE 80 MG/2 ML VIAL ONE (11:13)
[2018-01-17] MEDS ORDERED: LIDOCAINE HCL 1% PF 5 ML SYRINGE OTHER ONE (12:00)
[2018-01-17] MEDS ORDERED: PROPOFOL 200 MG/20 ML AMP IV ONE (12:00)
[2018-01-17] MEDS ORDERED: VECURONIUM BROMIDE 20 MG VIAL IV ONE (12:00)
[2018-01-17] MEDS ORDERED: SODIUM CHLORIDE 0.9% 20 ML VIAL IV ONE (12:00)
[2018-01-17] MEDS ORDERED: ceFAZolin INJ 1,000 MG VIAL IV ONE ×2 (12:00→12:12)
[2018-01-17] MEDS ORDERED: ROCURONIUM INJ 50 MG/5 ML SYRINGE IV PUSH ONE (12:00)
[2018-01-17] MEDS ORDERED: SODIUM BICARBONATE 8.4% INJ 50 MEQ/50 ML SYR ONE ×2 (12:03→12:05)
[2018-01-17] MEDS ORDERED: BACITRACIN TOP OINT 15 GM TUBE ONE (12:15)
[2018-01-17] MEDS: MIDAZOLAM 100 MG/NS 100 ML DRIP Premix IV PRN (13:15)
[2018-01-17] MEDS: fentaNYL 2,500 MCG/NS 250 ML IV PRN (13:15)
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
[2018-01-17 14:26] LABS: AUTOMATED NEUTROPHIL # 4.3 TH/MM3 (1.8-7.7); BASOPHIL % 0.2 % (0.0-2.0); HEMATOCRIT 29.6 % (39.0-51.0); HEMOGLOBIN 10.6 GM/DL (13.0-17.0); LYMPH % 12.9 % (9.0-44.0); LYMPHOCYTE # 0.7 TH/MM3 (1.0-4.8); MEAN CELL VOLUME 88.6 FL (80.0-100.0); MEAN CORPUSCULAR HEMOGLOBIN 31.7 PG (27.0-34.0); MEAN CORPUSCULAR HGB CONC 35.7 % (32.0-36.0); MEAN PLATELET VOLUME 6.5 FL (7.0-11.0); MONO % 9.5 % (0.0-8.0); MONOCYTE # 0.5 TH/MM3 (0-0.9); NEUT % 77.4 % (16.0-70.0); PLATELET COUNT 160 TH/MM3 (150-450); RED BLOOD COUNT 3.33 MIL/MM3 (4.50-5.90); WHITE BLOOD COUNT 5.5 TH/MM3 (4.0-11.0)
[2018-01-17 14:58] LABS: ALBUMIN 2.1 GM/DL (3.4-5.0); CALCIUM 6.3 MG/DL (8.5-10.1); CALCIUM-PROTEIN CORRECTED 7.6 MG/DL (8.5-10.1); CREATININE 0.68 MG/DL (0.60-1.30); PHOSPHORUS 1.6 MG/DL (2.5-4.9); TOTAL BILIRUBIN ADULT 0.5 MG/DL (0.2-1.0); TOTAL PROTEIN 4.5 GM/DL (6.4-8.2)
--- NOTE | 2018-01-17 15:49 | HHI.PR ---
Immediate Post Op Note Procedure Date: Jan 17, 2018 Pre Op Diagnosis: Stellate laceration of scalp, occipital skull fracture Post Op Diagnosis: Stellate laceration of scalp Surgeon: Edinson Sims Filter Press Operator(s): Mr. Berumen/Mr. Briceno Procedure: Debridement and repair of scalp laceration 4 cm Findings: Disruption of galea and periosteum. No fracture seen Complications: None Estimated blood loss: Less than 25 cc Anesthesia: General Drains: None IVF Patient Condition: Critical Date/Time of Procedure: SEE SURGICAL CARE RECORD Edinson Sims MD Jan 17, 2018 15:49
[2018-01-17] MEDS ORDERED: SODIUM CHLOR 0.9% 1000 ML INJ 1,000 ML IV ONE (18:00)
[2018-01-17] MEDS ORDERED: IOHEXOL 350 MG/ML 10 ML VIAL (for RAD DIAG) IVCONTRAST ONE (18:18)
--- NOTE | 2018-01-17 18:40 | RADRPT ---
EXAM DATE/TIME: 01/17/2018 18:12 [facility] COMPARISON: CT ABDOMEN & PELVIS W CONTRAST, January 16, 2018, 23:18. INDICATIONS : Follow up splenic injury. IV CONTRAST: 94 cc Omnipaque 350 (iohexol) IV ; Cumulative dose for multiple exams. ORAL CONTRAST: No oral contrast ingested. RADIATION DOSE: 10.51 CTDIvol (mGy) MEDICAL HISTORY : Non-responsive. SURGICAL HISTORY : Non-responsive. ENCOUNTER: Subsequent ACUITY: 1 day PAIN SCALE: Non-responsive LOCATION: abdomen TECHNIQUE: Volumetric scanning of the abdomen and pelvis was performed. Using automated exposure control and ad justment of the mA and/or kV according to patient size, radiation dose was kept as low as reasonably achievable to obtain optimal diagnostic quality images. DICOM format image data is available electro nically for review and comparison. FINDINGS: LOWER LUNGS: There are mild bilateral pleural effusions with accompanying areas of atelectasis or consolidation. LIVER: There is diffuse decreased attenuation to the liver compared to the spleen. Focal hepatic lesions are not seen. There is no dilation of the biliary tree. No calcified gallstones. This increased densit y within the gallbladder likely related to vicarious excretion of previously administered contrast. SPLEEN: Again noted is low density at the superior medial aspect of the spleen from prior injury. Acute hemor rhage is no longer seen. PANCREAS: Within normal limits. KIDNEYS: Normal in size and shape. There is no mass, stone or hydronephrosis. ADRENAL GLANDS: Within normal limits. VASCULAR: There is no aortic aneurysm. BOWEL/MESENTERY: There is an NG tube in place. There is a mild amount of free fluid seen in the peroneal cavity in the pelvis and paracolic gutter regions. There small amount of free fluid seen over the liver and spleen . ABDOMINAL WALL: Within normal limits. RETROPERITONEUM: There is no lymphadenopathy. BLADDER: There is a Messina catheter in place. There is air within the urinary bladder. REPRODUCTIVE: Within normal limits. INGUINAL: There is no lymphadenopathy or hernia. MUSCULOSKELETAL: There is fracturing of the left L1 transverse process. Again noted is fracturing of the inferior righ t lateral aspect of the L5 vertebral body. CONCLUSION: 1. Low density at the superior medial aspect of the spleen from the prior injury. Acute extravasation is not seen on the current exam. 2. Mild amount of free fluid in the peroneal cavity in the around the superior aspect of the liver an d spleen, inferior paracolic gutter regions, and in the pelvis. 3. Mild hepatic steatosis. 4. Bilateral areas of mild pleural effusion and atelectasis or consolidation. These findings have pro gressed since the prior exam. 5. Left L1 transverse process fracture and L5 vertebral body fracture. These were previously describe d. Nicolas Wells MD on January 17, 2018 at 18:31 Board Certified Radiologist. This report was verified electronically.
--- NOTE | 2018-01-17 18:42 | MB ---
cc: Edinson HERNNADEZ DATE: 01/17/2018 DATE OF EVALUATION: 01/17/2018 CHIEF COMPLAINT: Fall. HISTORY OF PRESENT ILLNESS: This is a patient of unknown age, who was found in an embankment under a bridge. He was thought to have fallen approximately 30 feet. He had a GCS of 3 at the scene, was intubated and brought to the hospital for evaluation. The patient was placed in a cervical collar and underwent evaluation by trauma and neurosurgery consultation was placed because of an occipital skull fracture and some spine fractures. PAST MEDICAL HISTORY: Not available. FAMILY HISTORY: Not available. MEDICATIONS: Not available. REVIEW OF SYSTEMS: Not obtainable. PHYSICAL EXAMINATION: VITAL SIGNS: Blood pressure of 121/70, respiratory rate of 20, pulse of 90, temperature of 100.8. HEENT: Shows a significant stellate laceration over the occipital area. NECK: In a Golden J collar, is midline. LUNGS: The patient is intubated on a respirator. Lungs appeared to be clear with some coarse rhonchi. Chest is symmetric. HEART: Shows a regular rhythm with normal heart sounds. ABDOMEN: Soft and nontender. GENITALIA: Normal for male. EXTREMITIES: Clear with some mild abrasions. NEUROLOGIC: The patient is comatose. He is intubated on a respirator. Does not follow commands. He is sedated. Pupils appear equal and poorly reactive. He does not respond to pain. DIAGNOSTIC STUDIES: CT of the head did not show any significant intracranial hemorrhage or injury. There is evidence of a right occipital skull fracture. CT of the cervical spine show no evidence of fracture. CT of the chest shows a possible T12 transverse process fracture. CT of the abdomen and pelvis shows an L1 transverse process fracture and a small chip fracture off the body of L5 on the lateral aspect on the right. Alcohol level was 354 and a urine was positive for benzodiazepine. OVERALL IMPRESSION: Occipital skull fracture, possible traumatic brain injury, although no intracranial injury is seen at the present time; L5 body fracture and transverse process fracture of L1. PLAN: After discussion with the trauma physician, I plan to take the patient to the operating room to close the wound due to the possibility of an open fracture. He will also have a repeat CT of the lumbar spine after the procedure is performed. Fransinai WHITE , 03:43 PM , 06:[address] [facility]
--- NOTE | 2018-01-17 18:48 | RADRPT ---
EXAM DATE/TIME: 01/17/2018 18:12 [facility] COMPARISON: No previous studies available for comparison. INDICATIONS : Evaluate fractures. IV CONTRAST: 94 cc Omnipaque 350 (iohexol) IV ; Cumulative dose for multiple exams. RADIATION DOSE: ; Reconstructed from previous dataset, no dose MEDICAL HISTORY : Non-responsive. SURGICAL HISTORY : Non-responsive. ENCOUNTER: Subsequent ACUITY: 1 day PAIN SCALE: Non-responsive LOCATION: lumbar TECHNIQUE: Volumetric scanning of the lumbar spine was performed. Multiplanar reconstructions in the sagittal, coronal and oblique axial planes were performed. Using automated exposure control and adjustment of the mA and/or kV according to patient size, radiation dose was kept as low as reasonably achievable t o obtain optimal diagnostic quality images. DICOM format image data is available electronically for review and comparison. FINDINGS: CONUS MEDULLARIS: Normal. PARASPINAL SOFT TISSUES: Normal. LUMBAR CORD: Normal. DURAL SAC: Normal. L1-L2: The disc, uncovertebral joints, central canal, foramina, and facets are normal. L2-L3: The disc, uncovertebral joints, central canal, foramina, and facets are normal. L3-L4: The disc, uncovertebral joints, central canal, foramina, and facets are normal. L4-L5: The disc, uncovertebral joints, central canal, foramina, and facets are normal. L5-S1: The disc, uncovertebral joints, central canal, foramina, and facets are normal. CONCLUSION: 1. Fracturing of the anterior inferior right lateral aspect of L5 vertebral body. 2. Fracturing at the left L1 transverse process. Nicolas Wells MD on January 17, 2018 at 18:42 Board Certified Radiologist. This report was verified electronically.
--- NOTE | 2018-01-17 19:44 | MP ---
cc: ,Edinson Dan DATE OF OPERATION: 01/17/2018 PREOPERATIVE DIAGNOSIS: Stellate laceration of the occipital scalp, right occipital skull fracture. POSTOPERATIVE DIAGNOSIS: Stellate laceration of occipital scalp. PROCEDURE PERFORMED: Debridement and repair of scalp laceration, 4 cm. SURGEON: Edinson Sims MD ASSISTANTS Mr. Berumen/Mr. Salamanca ESTIMATED BLOOD LOSS Less than 25 mL. ANESTHESIA: General. DETAILS OF PROCEDURE: The patient was taken to the operating room from the surgical intensive care unit. He was placed under general anesthesia and monitored closely. The patient was previously intubated in the intensive care unit. The patient's occipital scalp was then shaved with an electric razor. The area of the laceration was then prepped and draped in usual sterile fashion. Once this was accomplished, the wound was inspected and debrided. Multiple small hairs were removed from inside the wound. The wound was then further cleaned and debrided utilizing a pulse lavage machine. Once the wound was cleaned, hemostasis was obtained with electrocautery. Inspection was undertaken. There was disruption of the galea and disruption of the periosteum. No kieran fracture was seen of the bone. Once the area was fully inspected, repair was undertaken. The central portions of the wound were approximated initially with 3-0 Prolene in a mattress interrupted fashion. Once this was accomplished, the remaining areas of laceration were repaired utilizing surgical johnna until all areas were approximated. There were 4 main flaps and smaller lacerations were also closed utilizing johnna. During the procedure, the patient was found to be acidotic and correction was undertaken by the anesthesiologist. He remained on vasopressors to control his blood pressure, but remained fairly stable throughout the procedure. Once the wound was clean and closed, sterile dressing was applied to the head and it was placed in a donut. The patient was taken back to the intensive care unit and escorted by anesthesia. Edinson SINGH//rafa , 03:54 PM , 07:07 PM [facility]
[2018-01-17] MEDS: POTASSIUM PHOSPHATE INJ 30 MMOL in SODIUM CHLOR 0.9% 250 ML INJ 250 ML IV PRN (20:12)
--- NOTE | 2018-01-17 20:53 | HHI.CCPN ---
Subjective Brief History This is a patient who was found on an embankment under a bridge. He was thought to have fallen from a height of approximately 30 feet. He had a GCS of 3 at the scene, was intubated at the scene, brought in as a Trauma Alert. On arrival the patient was on backboard and C-collar, unable to give a history or review of systems. By reports, the paramedics said he had a blood pressure in the 70s initially, which responded to fluids up into the 90s systolic. Patient was resuscitated according trauma principles Final diagnosis Loss of consciousness probable brain concussion with heavy EtOH intoxication Open skull fracture with laceration in the parieto-occipital area No apparent brain injury Bilateral chest contusions and lung contusions Grade 2 splenic laceration L1 /L5 fracture Objective Vital Signs Date Time Temp Pulse Resp B/P (MAP) Pulse Ox O2 Delivery O2 Flow Rate FiO2 01/17/18 20:08 100 50 01/17/18 19:08 95 101/45 01/17/18 16:00 99.7 20 Intake and Output 01/17/18 01/17/18 01/18/18 08:00 16:00 00:00 Intake Total 2900 ml 3910 ml 250 ml Output Total 1550 ml 575 ml 3200 ml Balance 1350 ml 3335 ml -2950 ml Result Diagram: 01/17/18 1339 01/17/18 1339 Other Results Laboratory Tests Test 01/17/18 03:15 01/17/18 06:09 01/17/18 11:50 01/17/18 13:01 Blood Gas Puncture Site ART LINE ART LINE ART LINE ART LINE Blood Gas Patient Temperature 98.6 98.6 98.6 98.6 Blood Gas HCO3 17 mmol/L (22-26) 18 mmol/L (22-26) 16 mmol/L (22-26) 19 mmol/L (22-26) Blood Gas Base Excess -10.7 mmol/L (-2-2) -7.8 mmol/L (-2-2) -9.1 mmol/L (-2-2) -5.0 mmol/L (-2-2) Blood Gas Oxygen Saturation 97 % (90-100) 94 % (90-100) 97 % (90-100) 94 % ( 90-100) Arterial Blood pH 7.15 (7.380-7.420) 7.27 (7.380-7.420) 7.28 (7.380-7.420) 7.37 (7.380-7.420) Arterial Blood Partial Pressure CO2 50 mmHg (38-42) 40 mmHg (38-42) 36 mmHg (38-42) 34 mmHg (38-42) Arterial Blood Partial Pressure O2 153 mmHg (61-120) 92 mmHg (61-120) 129 mmHg (61-120) 80 mmHg (61-120) Arterial Blood Oxygen Content 15.8 Vol % (12.0-20.0) 15.0 Vol % (12.0-20.0) 13.0 Vol % (12.0-20.0) 13.4 Vol % (12.0-20.0) Arterial Blood Carboxyhemoglobin 0.6 % (0-4) 0.9 % (0-4) 0.7 % (0-4) 0.9 % (0-4) Arterial Blood Methemoglobin 1.0 % (0-2) 1.1 % (0-2) 1.0 % (0-2) 1.0 % (0-2) Blood Gas Hemoglobin 11.5 G/DL (12.0-16.0) 11.3 G/DL (12.0-16.0) 9.4 G/DL (12.0-16.0) 10.0 G/DL (12.0-16.0) Oxygen Delivery Device VENTILATOR VENTILATOR VENTILATOR Blood Gas Ventilator Setting PRVC/AC PRVC/AC PRVC/R20/VT550/P5 Blood Gas Inspired Oxygen 100 % 50 % 100 % 50 % Test 01/17/18 14:00 Blood Gas Puncture Site ART LINE Blood Gas Patient Temperature 98.6 Blood Gas HCO3 23 mmol/L (22-26) Blood Gas Base Excess -1.5 mmol/L (-2-2) Blood Gas Oxygen Saturation 95 % (90-100) Arterial Blood pH 7.41 (7.380-7.420) Arterial Blood Partial Pressure CO2 37 mmHg (38-42) Arterial Blood Partial Pressure O2 83 mmHg (61-120) Arterial Blood Oxygen Content 14.0 Vol % (12.0-20.0) Arterial Blood Carboxyhemoglobin 1.1 % (0-4) Arterial Blood Methemoglobin 1.0 % (0-2) Blood Gas Hemoglobin 10.4 G/DL (12.0-16.0) Oxygen Delivery Device VENTILATOR Blood Gas Ventilator Setting PRVC/AC Blood Gas Inspired Oxygen 50 % Imaging Last 24 hours Impressions Chest X-Ray 01/17/18 0000 Signed Impressions: Service Date/Time: Wednesday, January 17, 2018 02:59 - CONCLUSION: 1. Interval placement of right subclavian central venous line with no pneumothorax. 2. Interval placement of nasogastric tube. 3. New bibasilar and perihilar alveolar opacities which may represent pulmonary edema, contusion or aspiration. Julio C Koroma MD Pelvis X-Ray 01/16/182258 Signed Impressions: Service Date/Time: Tuesday, January 16, 2018 22:23 - CONCLUSION: 1. Suboptimal single view study secondary to motion artifact. 2. Apparent left sacral fracture. Julio C Koroma MD Maxillofacial CT 01/16/182258 Signed Impressions: Service Date/Time: Tuesday, January 16, 2018 23:02 - CONCLUSION: 1. Small air-fluid level in right maxillary sinus with no facial fracture. 2. Missing right central incisor. Julio C Koroma MD Head CT 01/16/18 225 Signed Impressions: Service Date/Time: Tuesday, January 16, 2018 23:02 - CONCLUSION: 1. Nondisplaced right occipital skull fracture. 2. No intracranial hemorrhage or mass effect. Julio C Koroma MD Chest X-Ray 01/16/18 2259 Signed Impressions: Service Date/Time: Tuesday, January 16, 2018 22:23 - CONCLUSION: 1. Suboptimal examination due to motion artifact and overlying artifact. 2. Mild hazy opacity in the right perihilar region and left lung base which could represent aspiration or lung contusion. Julio C Koroma MD Chest CT 01/16/18 2259 Signed Impressions: Service Date/Time: Tuesday, January 16, 2018 23:18 - CONCLUSION: 1. Multiple areas of alveolar consolidation in both lower lobes which could represent lung contusion and or aspiration. There is no pneumothorax. 2. Subtle nondisplaced fracture of the left medial first rib. Nondisplaced fracture through the left transverse process of the T11 vertebra. The vertebral bodies are intact. 3. Visualization of the previously noted left L1 transverse fracture and splenic laceration. Please see abdomen CT for further details. Julio C Koroma MD Cervical Spine CT 01/16/182258 Signed Impressions: Service Date/Time: Tuesday, January 16, 2018 23:02 - CONCLUSION: 1. No cervical fracture. 2. Nondisplaced fracture of the left anterior first rib. 3. Visualization of the known right occipital fracture. Julio C Koroma MD Abdomen/Pelvis CT 01/16/182258 Signed Impressions: Service Date/Time: Tuesday, January 16, 2018 23:18 - CONCLUSION: 1. Grade 2 splenic laceration involving the medial tip of the spleen with small surrounding hematoma. 2. Subtle nondisplaced oblique fracture through the inferior right lateral aspect of the L5 vertebral body. The other lumbar vertebral bodies are intact. The sacrum is intact as well. 3. Nondisplaced fracture through the left L1 transverse process. 4. Areas of consolidation in both posterior lower lobes which may represent contusion and/or aspiration. Please see chest CT for further details. Julio C Koroma MD Exam [employer] Patient remains intubated ventilated Hemodynamic/Cardiac Hemodynamically slowly stabilizing Initially patient was on Levophed and vasopressin in order to maintain systolic blood pressure Patient has been now volume loaded and acidosis has resolved and therefore the vasomotor support should be weaned off gradually Pulmonary/Respiratory Bilateral breath sounds bilateral pulmonary contusions and good oxygen exchange Abdomen/GI Nutrition Abdomen soft no rebound no guarding no masses no distention Grade 2 splenic laceration remains to be stable and I am going to repeat the CAT scan of abdomen and pelvis because is hard to believe that patient fell that high to an embankment and then sustained more injuries but in alcoholized state that is possible for patients are usually semiconscious and very flaccid Renal/I&O Renal function preserved patient well volume loaded this time and fully resuscitated Assessment and Plan Attestation Critical care 36 minutes Abimbola Terrell MD Jan 17, 2018 20:53
[2018-01-17 21:49] LABS: BILIRUBIN, URINE NEG (NEG); BLOOD, URINE NEG (NEG); GLUCOSE,URINE NEG (NEG); KETONE, URINE NEG (NEG); NITRITE,URINE NEG (NEG); PH, URINE 7.5 (5.0-8.5); URINE COLOR LIGHT-YELLOW (YELLW/STRAW); URINE LEUKOCYTE ESTERASE NEG (NEG)
[2018-01-17 21:51] LABS: BACTERIA, URINE RARE /hpf
[2018-01-18] VITALS (19 sets, daily range): BP systolic 103–136; BP diastolic 44–72; PULSE 63–102; RESP 14–20; TEMP 98.8–100.4; O2SAT 96–100
[2018-01-18] MEDS: NOREPINEPHRINE INJ 4 MG in SODIUM CHLOR 0.9% 250 ML INJ 250 ML IV PRN ×4 (00:36→18:20)
[2018-01-18] MEDS: MULTIVITAMIN INJ 10 ML, THIAMINE INJ 100 MG, FOLIC ACID INJ 1 MG in SODIUM CHLORID 0.9%... IV SCH (02:25)
[2018-01-18] MEDS: CHLORHEXIDINE GLUCONATE 2 % 1 PACK (2 CLOTHS) TOP SCH (03:08)
[2018-01-18] MEDS: RESP: ALBUTEROL 2.5 MG/IPRATROPIUM 0.5 MG NEB (SCH) NEB ×4 (03:29→20:40)
[2018-01-18] MEDS: AMPICILLIN-SULBACTAM INJ 3 GM in SODIUM CHLORIDE 0.9% INJ 100 ML IV SCH ×4 (04:35→22:33)
--- NOTE | 2018-01-18 04:43 | RADRPT ---
EXAM DATE/TIME: 01/18/2018 02:54 [facility] COMPARISON: CHEST SINGLE AP, January 17, 2018, 2:59. INDICATIONS : Infiltrate. MEDICAL HISTORY : None. SURGICAL HISTORY : None. ENCOUNTER: Subsequent ACUITY: 3 days PAIN SCORE: Non-responsive. LOCATION: Bilateral chest FINDINGS: A single AP erect portable view of the chest was obtained and again demonstrates the endotracheal tub e with the tip approximately 4-5 cm above the tyree. A nasogastric tube is again seen coursing throu gh the esophagus into the stomach. The right subclavian central venous line remains in place. Hazy pe rihilar and bibasilar opacities remain with mild interval improvement. There is no distinct effusion. CONCLUSION: Mild interval improvement in the bilateral perihilar and bibasilar opacities. Julio C Koroma MD on January 18, 2018 at 4:39 Board Certified Radiologist. This report was verified electronically.
[2018-01-18] MEDS: VASOPRESSIN INJ 40 UNITS in SODIUM CHLORIDE 0.9% INJ 98 ML IV SCH (05:00)
[2018-01-18 05:08] LABS: AUTOMATED NEUTROPHIL # 9.9 TH/MM3 (1.8-7.7); BASOPHIL % 0.4 % (0.0-2.0); EOSINOPHIL % 0.1 % (0.0-4.0); HEMATOCRIT 28.2 % (39.0-51.0); HEMOGLOBIN 9.7 GM/DL (13.0-17.0); LYMPH % 7.9 % (9.0-44.0); LYMPHOCYTE # 0.9 TH/MM3 (1.0-4.8); MEAN CELL VOLUME 87.9 FL (80.0-100.0); MEAN CORPUSCULAR HEMOGLOBIN 30.3 PG (27.0-34.0); MEAN CORPUSCULAR HGB CONC 34.4 % (32.0-36.0); MEAN PLATELET VOLUME 6.3 FL (7.0-11.0); MONO % 9.3 % (0.0-8.0); MONOCYTE # 1.1 TH/MM3 (0-0.9); NEUT % 82.3 % (16.0-70.0); PLATELET COUNT 158 TH/MM3 (150-450); RED BLOOD COUNT 3.21 MIL/MM3 (4.50-5.90); RED CELL DISTRIBUTION WIDTH 17.2 % (11.6-17.2)
--- NOTE | 2018-01-18 05:08 | RADRPT ---
EXAM DATE/TIME: 01/18/2018 04:00 [facility] COMPARISON: CT BRAIN W/O CONTRAST, January 16, 2018, 23:02. INDICATIONS : Trauma patient with skull fracture and Intracranial hemorrhage.. RADIATION DOSE: 59.15 CTDIvol (mGy) MEDICAL HISTORY : Non-responsive. SURGICAL HISTORY : Non-responsive. ENCOUNTER: Subsequent ACUITY: 2 days PAIN SCALE: Non-responsive LOCATION: cranial TECHNIQUE: Multiple contiguous axial images were obtained of the head. Using automated exposure control and adj ustment of the mA and/or kV according to patient size, radiation dose was kept as low as reasonably a chievable to obtain optimal diagnostic quality images. DICOM format image data is available electro nically for review and comparison. FINDINGS: Subtle areas of subarachnoid hemorrhage are now noted over the posterior right parietal and occi pital convexities with no edema or mass effect. The ventricular system remains within normal limits. The posterior fossa and brainstem remain unremarkable. The bone windows again demonstrate a right occ ipital fracture. CONCLUSION: 1. Subtle areas of subarachnoid hemorrhage is now noted over the posterior right parietal and occipit al convexities with no mass effect or edema. 2. Right occipital skull fracture again visualized. Julio C Koroma MD on January 18, 2018 at 5:03 Board Certified Radiologist. This report was verified electronically.
[2018-01-18 05:31] LABS: BICARBONATE 26.1 MEQ/L (21.0-32.0); CALCIUM 6.9 MG/DL (8.5-10.1); CREATININE 0.65 MG/DL (0.60-1.30); MAGNESIUM 2.4 MG/DL (1.5-2.5); PHOSPHORUS 2.5 MG/DL (2.5-4.9)
[2018-01-18] MEDS: LACTATED RINGER'S 1000 ML INJ 1,000 ML IV SCH (06:00)
[2018-01-18 06:02] LABS: CALCIUM-PROTEIN CORRECTED 7.9 MG/DL (8.5-10.1); TOTAL PROTEIN 5.1 GM/DL (6.4-8.2)
[2018-01-18] MEDS: MIDAZOLAM 100 MG/NS 100 ML DRIP Premix IV PRN (06:33)
[2018-01-18] MEDS: CHLORHEXIDINE 0.12% (ORAL KIT) 15 ML CUP MT SCH ×2 (07:41→20:14)
[2018-01-18] MEDS: fentaNYL 2,500 MCG/NS 250 ML IV PRN (07:41)
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
[2018-01-18] MEDS ORDERED: SODIUM CHLOR 0.9% 1000 ML INJ 1,000 ML IV SCH (09:00)
[2018-01-18] MEDS: levETIRAcetam INJ 500 MG in SODIUM CHLORIDE 0.9% INJ 100 ML IV SCH ×2 (11:30→20:49)
--- NOTE | 2018-01-18 12:16 | HHI.NSPN ---
History Interval History Patient status post fall. Admitted to ICU because of unresponsiveness. Nurses report mild improvement neurological state Exam Results Vital Signs Date Time Temp Pulse Resp B/P (MAP) Pulse Ox O2 Delivery O2 Flow Rate FiO2 01/18/18 10:00 90 01/18/18 08:00 99.3 20 127/55 (79) 100 01/18/18 08:00 40 Intake and Output 01/18/18 01/18/18 01/19/18 08:00 16:00 00:00 Intake Total 1929.2 ml 419 ml Output Total 2725 ml Balance -795.8 ml 419 ml Physical Examination Remains intubated and sedated Will open eyes when called and follow some simple commands. Scalp wound inspected. No evidence of infection and appears clean Medical Decision Making Impression and Plan Patient appears stable and somewhat improved If pulmonary status allows would slowly withdraw sedation Edinson Sims MD Jan 18, 2018 12:16
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
[2018-01-18] MEDS ORDERED: ACETAMINOPHEN 650 MG/20.3 ML UDC NG PRN (17:45)
[2018-01-18] MEDS: MAGNESIUM HYDROXIDE SUSP 30 ML CUP PO SCH (20:49)
[2018-01-18] MEDS: DOCUSATE SODIUM 50 MG/SENNA 8.6 MG TAB PO SCH (20:50)
[2018-01-18] MEDS: PANTOPRAZOLE SODIUM 40 MG VIAL IVP SCH (23:26)
[2018-01-19] VITALS (17 sets, daily range): BP systolic 107–137; BP diastolic 56–78; PULSE 69–98; RESP 14; TEMP 98.1–100.1; O2SAT 96–100
[2018-01-19] MEDS: MULTIVITAMIN INJ 10 ML, THIAMINE INJ 100 MG, FOLIC ACID INJ 1 MG in SODIUM CHLORID 0.9%... IV SCH (02:06)
[2018-01-19] MEDS: NOREPINEPHRINE INJ 4 MG in SODIUM CHLOR 0.9% 250 ML INJ 250 ML IV PRN (02:54)
[2018-01-19] MEDS: fentaNYL 2,500 MCG/NS 250 ML IV PRN (03:28)
[2018-01-19] MEDS: MIDAZOLAM 100 MG/NS 100 ML DRIP Premix IV PRN (03:29)
[2018-01-19] MEDS: RESP: ALBUTEROL 2.5 MG/IPRATROPIUM 0.5 MG NEB (SCH) NEB ×4 (03:31→19:46)
[2018-01-19] MEDS: CHLORHEXIDINE GLUCONATE 2 % 1 PACK (2 CLOTHS) TOP SCH (04:00)
[2018-01-19] MEDS: AMPICILLIN-SULBACTAM INJ 3 GM in SODIUM CHLORIDE 0.9% INJ 100 ML IV SCH ×4 (04:12→22:27)
[2018-01-19] MEDS: VASOPRESSIN INJ 40 UNITS in SODIUM CHLORIDE 0.9% INJ 98 ML IV SCH (05:00)
--- NOTE | 2018-01-19 06:22 | RADRPT ---
EXAM DATE/TIME: 01/19/2018 04:59 [facility] COMPARISON: CHEST SINGLE AP, January 18, 2018, 2:54. INDICATIONS : Short of breath. MEDICAL HISTORY : None. SURGICAL HISTORY : None. ENCOUNTER: Subsequent ACUITY: 4 - 6 days PAIN SCORE: 0/10 LOCATION: Bilateral chest FINDINGS: A single view of the chest demonstrates bilateral patchy airspace disease. Endotracheal tube, nasogas tric tube and right subclavian central line in stable position.. The cardiomediastinal contours are unremarkable. Osseous structures are intact. CONCLUSION: 1. Bibasilar patchy airspace disease, not significantly changed. Corby Goff MD on January 19, 2018 at 6:19 Board Certified Radiologist. This report was verified electronically.
[2018-01-19 06:56] LABS: BICARBONATE 28.1 MEQ/L (21.0-32.0); CALCIUM 7.6 MG/DL (8.5-10.1); CREATININE 0.53 MG/DL (0.60-1.30); MAGNESIUM 1.7 MG/DL (1.5-2.5); PHOSPHORUS 1.6 MG/DL (2.5-4.9)
[2018-01-19 07:12] LABS: AUTOMATED NEUTROPHIL # 8.9 TH/MM3 (1.8-7.7); BASOPHIL # 0.1 TH/MM3 (0-0.2); BASOPHIL % 0.5 % (0.0-2.0); EOSINOPHIL # 0.3 TH/MM3 (0-0.4); EOSINOPHIL % 2.5 % (0.0-4.0); HEMATOCRIT 26.1 % (39.0-51.0); HEMOGLOBIN 9.1 GM/DL (13.0-17.0); LYMPH % 6.9 % (9.0-44.0); LYMPHOCYTE # 0.7 TH/MM3 (1.0-4.8); MEAN CELL VOLUME 88.9 FL (80.0-100.0); MEAN CORPUSCULAR HEMOGLOBIN 30.9 PG (27.0-34.0); MEAN CORPUSCULAR HGB CONC 34.7 % (32.0-36.0); MEAN PLATELET VOLUME 6.6 FL (7.0-11.0); MONO % 5.7 % (0.0-8.0); MONOCYTE # 0.6 TH/MM3 (0-0.9); NEUT % 84.4 % (16.0-70.0); PLATELET COUNT 154 TH/MM3 (150-450); RED BLOOD COUNT 2.94 MIL/MM3 (4.50-5.90); RED CELL DISTRIBUTION WIDTH 16.4 % (11.6-17.2); WHITE BLOOD COUNT 10.5 TH/MM3 (4.0-11.0)
[2018-01-19] MEDS: POTASSIUM PHOSPHATE INJ 30 MMOL in SODIUM CHLOR 0.9% 250 ML INJ 250 ML IV PRN (08:35)
[2018-01-19] MEDS: DOCUSATE SODIUM 50 MG/SENNA 8.6 MG TAB PO SCH ×2 (08:52→22:31)
[2018-01-19] MEDS: MAGNESIUM HYDROXIDE SUSP 30 ML CUP PO SCH ×2 (08:52→22:30)
[2018-01-19] MEDS: CHLORHEXIDINE 0.12% (ORAL KIT) 15 ML CUP MT SCH ×2 (08:56→20:00)
[2018-01-19] MEDS: levETIRAcetam INJ 500 MG in SODIUM CHLORIDE 0.9% INJ 100 ML IV SCH ×2 (08:56→22:20)
[2018-01-19] MEDS ORDERED: POTASSIUM CHLORIDE 25 MEQ EFFERVESCENT TAB PO ONE (12:00)
[2018-01-19] MEDS ORDERED: FUROSEMIDE 40 MG/4 ML VIAL IV PUSH ONE (12:00)
--- NOTE | 2018-01-19 19:32 | HHI.NSPN ---
History Chief Complaint: Unable to obtain due to patient's clinical condition. Interval History 01/17: This is a patient of unknown age, who was found in an embankment under a bridge. He was thought to have fallen approximately 30 feet. He had a GCS of 3 at the scene, was intubated and brought to the hospital for evaluation. The patient was placed in a cervical collar and underwent evaluation by trauma and neurosurgery consultation was placed because of an occipital skull fracture and some spine fractures. 01/18: Patient status post fall. Admitted to ICU because of unresponsiveness. Nurses report mild improvement neurological state 01/19: Patient drowsy. Opened eyes to voice and followed commands demonstrated to him. He is intubated and mechanically ventilated but not on any sedation. System Review Comments Unable to obtain due to patient's clinical condition. Exam Results 01/18/18 01/18/18 01/19/18 01/19/18 01/20/18 01/20/18 06:00 18:00 06:00 18:00 06:00 18:00 Intake Total 2268 ml 1867.2 ml 1927.3 ml Output Total 2725 ml 2250 ml 1900 ml Balance -457 ml -382.8 ml 27.3 ml Intake IV Total 2268 ml 1867.2 ml 1927.3 ml Output Urine Total 2525 ml 2200 ml 1800 ml Gastric Drainage Total 200 ml 50 ml 100 ml # Bowel Movements 0 0 0 Vital Signs Date Time Temp Pulse Resp B/P (MAP) Pulse Ox O2 Delivery O2 Flow Rate FiO2 01/19/18 14:00 93 01/19/18 12:00 99.8 90 14 107/62 (77) 98 01/19/18 12:00 40 01/19/18 12:00 91 01/19/18 11:57 98 30 01/19/18 11:50 30 01/19/18 10:00 98 01/19/18 08:14 98 30 01/19/18 08:00 100.1 84 14 122/56 (78) 99 01/19/18 08:00 40 01/19/18 08:00 84 01/19/18 06:00 79 01/19/18 04:00 80 01/19/18 04:00 35 01/19/18 04:00 98.8 80 14 137/63 (87) 100 01/19/18 03:28 100 30 01/19/18 02:54 71 139/72 01/19/18 02:00 69 01/19/18 00:00 69 01/19/18 00:00 98.1 69 14 136/75 (95) 100 01/19/18 00:00 35 01/18/18 23:39 100 35 01/18/18 22:00 73 01/18/18 20:41 100 40 01/18/18 20:00 90 01/18/18 20:00 40 01/18/18 20:00 98.8 74 14 120/61 (80) 100 01/18/18 18:20 82 118/53 01/18/18 18:00 84 01/18/18 16:00 92 01/18/18 16:00 40 01/18/18 16:00 100.4 92 14 136/58 (84) 100 01/18/18 15:19 100 40 01/18/18 14:00 88 01/18/18 12:30 92 112/46 01/18/18 12:00 40 01/18/18 12:00 100.0 92 14 130/52 (78) 100 01/18/18 12:00 92 01/18/18 10:00 90 01/18/18 08:00 99.3 90 20 127/55 (79) 100 01/18/18 08:00 40 01/18/18 08:00 90 01/18/18 07:36 100 40 01/18/18 07:00 80 118/56 01/18/18 06:26 82 124/60 01/18/18 06:08 82 122/56 01/18/18 06:00 82 01/18/18 05:51 83 126/59 01/18/18 04:35 97 136/58 01/18/18 04:00 99.6 63 20 129/72 (91) 96 01/18/18 04:00 102 01/18/18 04:00 50 01/18/18 03:29 100 50 01/18/18 02:00 82 01/18/18 00:48 86 99/44 3/25/18 00:36 84 98/44 18 00:24 100 50 18 00:01 85 114/48 01/18/18 00:00 50 18 00:00 84 18 00:00 99.7 85 20 103/44 (63) 100 18 22:09 93 105/45 18 22:00 93 18 20:08 100 50 18 20:00 50 18 20:00 98 18 20:00 100.0 90 20 112/52 (72) 100 01/17/18 19:08 95 101/45 18 18:39 100 100 01/17/18 18:00 95 18 16:30 110 130/56 18 16:14 112 130/54 18 16:00 50 18 16:00 116 01/17/18 16:00 99.7 116 20 136/58 (84) 98 01/17/18 16:00 116 136/58 18 15:45 101 140/60 18 15:30 95 144/64 18 15:15 91 148/72 18 14:59 90 150/78 18 14:52 100 50 18 14:00 86 01/17/18 13:00 90 121/70 18 12:45 100.8 90 20 121/70 (87) 95 18 12:45 50 01/17/18 11:10 97 100 18 10:00 88 18 08:45 98 128/72 18 08:15 98 124/68 18 08:00 99.7 98 16 118/66 (83) 96 Automatic Cuff 18 08:00 98 118/66 18 08:00 40 18 08:00 98 18 07:33 99 40 18 07:30 92 106/62 2418 07:00 92 104/62 18 06:09 90 106/60 3/24/18 06:00 91 3/24/18 05:58 98 50 01/17/18 05:44 92 96/52 01/17/18 04:39 97 128/67 01/17/18 04:27 100 85/48 01/17/18 04:27 97 85/48 01/17/18 04:02 95 96/40 01/17/18 04:00 60 01/17/18 04:00 99 01/17/18 02:10 79 86/50 01/17/18 02:00 79 01/17/18 00:57 71 70/39 01/17/18 00:45 75 70/39 01/17/18 00:42 93.2 69 16 85/50 100 01/17/18 00:00 100 01/17/18 00:00 93.2 01/17/18 00:00 93.2 75 21 91/50 (64) 100 01/16/18 23:55 100 100 01/16/18 23:13 100 100 01/16/18 22:57 100 Physical Examination GENERAL: Drowsy, opens eyes to voice. Interacts after that. Intubated & mechanically ventilated. No sedation. On Fentanyl 75 mcg/hr for pain control. No apparent distress. In soft wrist restraints. HEENT: Dressing intact to posterior scalp laceration. Dressing removed and laceration well-approximated w/johnna, no evident drainage, erythema or streaking, mid laceration abrasion. PERRLA 2 mm reactive. Orally intubated. OGT. MUSCULOSKELETAL: Moves all extremities to command. No evident clubbing or deformity. NEUROLOGICAL: Drowsy but opens eyes to voice. Nonverbal, intubated. Follows simple commands that are demonstrated. Moves all extremities to command. Lab, Micro, Other Results Recent Impressions Chest X-Ray 01/19/18599 Signed Impressions: Service Date/Time: Friday, January 19, 2018 04:59 - CONCLUSION: 1. Bibasilar patchy airspace disease, not significantly changed. Corby Goff MD Head CT 01/18/18599 Signed Impressions: Service Date/Time: Thursday, January 18, 2018 04:00 - CONCLUSION: 1. Subtle areas of subarachnoid hemorrhage is now noted over the posterior right parietal and occipital convexities with no mass effect or edema. 2. Right occipital skull fracture again visualized. Julio C Koroma MD Chest X-Ray 01/18/18 0600 Signed Impressions: Service Date/Time: Thursday, January 18, 2018 02:54 - CONCLUSION: Mild interval improvement in the bilateral perihilar and bibasilar opacities. Julio C Koroma MD Lumbar Spine CT 01/17/18 1500 Signed Impressions: Service Date/Time: Wednesday, January 17, 2018 18:12 - CONCLUSION: 1. Fracturing of the anterior inferior right lateral aspect of L5 vertebral body. 2. Fracturing at the left L1 transverse process. Nicolas Wells MD Chest X-Ray 01/17/18 0000 Signed Impressions: Service Date/Time: Wednesday, January 17, 2018 02:59 - CONCLUSION: 1. Interval placement of right subclavian central venous line with no pneumothorax. 2. Interval placement of nasogastric tube. 3. New bibasilar and perihilar alveolar opacities which may represent pulmonary edema, contusion or aspiration. Julio C Koroma MD Abdomen/Pelvis CT 01/17/18 0000 Signed Impressions: Service Date/Time: Wednesday, January 17, 2018 18:12 - CONCLUSION: 1. Low density at the superior medial aspect of the spleen from the prior injury. Acute extravasation is not seen on the current exam. 2. Mild amount of free fluid in the peroneal cavity in the around the superior aspect of the liver and spleen, inferior paracolic gutter regions, and in the pelvis. 3. Mild hepatic steatosis. 4. Bilateral areas of mild pleural effusion and atelectasis or consolidation. These findings have progressed since the prior exam. 5. Left L1 transverse process fracture and L5 vertebral body fracture. These were previously described. Nicolas Wells MD Pelvis X-Ray 01/16/182258 Signed Impressions: Service Date/Time: Tuesday, January 16, 2018 22:23 - CONCLUSION: 1. Suboptimal single view study secondary to motion artifact. 2. Apparent left sacral fracture. Julio C Koroma MD Maxillofacial CT 01/16/182258 Signed Impressions: Service Date/Time: Tuesday, January 16, 2018 23:02 - CONCLUSION: 1. Small air-fluid level in right maxillary sinus with no facial fracture. 2. Missing right central incisor. Julio C Koroma MD Head CT 01/16/182258 Signed Impressions: Service Date/Time: Tuesday, January 16, 2018 23:02 - CONCLUSION: 1. Nondisplaced right occipital skull fracture. 2. No intracranial hemorrhage or mass effect. Julio C Koroma MD Chest X-Ray 01/16/182258 Signed Impressions: Service Date/Time: Tuesday, January 16, 2018 22:23 - CONCLUSION: 1. Suboptimal examination due to motion artifact and overlying artifact. 2. Mild hazy opacity in the right perihilar region and left lung base which could represent aspiration or lung contusion. Julio C Koroma MD Chest CT 01/16/182258 Signed Impressions: Service Date/Time: Tuesday, January 16, 2018 23:18 - CONCLUSION: 1. Multiple areas of alveolar consolidation in both lower lobes which could represent lung contusion and or aspiration. There is no pneumothorax. 2. Subtle nondisplaced fracture of the left medial first rib. Nondisplaced fracture through the left transverse process of the T11 vertebra. The vertebral bodies are intact. 3. Visualization of the previously noted left L1 transverse fracture and splenic laceration. Please see abdomen CT for further details. Julio C Koroma MD Cervical Spine CT 01/16/182258 Signed Impressions: Service Date/Time: Tuesday, January 16, 2018 23:02 - CONCLUSION: 1. No cervical fracture. 2. Nondisplaced fracture of the left anterior first rib. 3. Visualization of the known right occipital fracture. Julio C Koroma MD Abdomen/Pelvis CT 01/16/182258 Signed Impressions: Service Date/Time: Tuesday, January 16, 2018 23:18 - CONCLUSION: 1. Grade 2 splenic laceration involving the medial tip of the spleen with small surrounding hematoma. 2. Subtle nondisplaced oblique fracture through the inferior right lateral aspect of the L5 vertebral body. The other lumbar vertebral bodies are intact. The sacrum is intact as well. 3. Nondisplaced fracture through the left L1 transverse process. 4. Areas of consolidation in both posterior lower lobes which may represent contusion and/or aspiration. Please see chest CT for further details. Julio C Koroma MD Laboratory Tests Test 01/16/18 23:00 01/17/18 01:40 01/17/18 03:15 01/17/18 04:27 White Blood Count 11.2 TH/MM3 1.5 TH/MM3 Red Blood Count 3.71 MIL/MM3 3.93 MIL/MM3 Hemoglobin 11.8 GM/DL 12.0 GM/DL Bedside Hemoglobin 12.2 G/DL Hematocrit 35.1 % 35.3 % Bedside Hematocrit 36.0 % Mean Corpuscular Volume 94.8 FL 89.9 FL Mean Corpuscular Hemoglobin 31.7 PG 30.4 PG Mean Corpuscular Hemoglobin Concent 33.5 % 33.8 % Red Cell Distribution Width 14.0 % 16.9 % Platelet Count 261 TH/MM3 192 TH/MM3 Mean Platelet Volume 6.5 FL 6.5 FL Neutrophils (%) (Auto) 66.4 % 65.5 % Lymphocytes (%) (Auto) 25.4 % 27.8 % Monocytes (%) (Auto) 6.6 % 6.0 % Eosinophils (%) (Auto) 1.0 % 0.1 % Basophils (%) (Auto) 0.6 % 0.6 % Neutrophils # (Auto) 7.4 TH/MM3 1.0 TH/MM3 Lymphocytes # (Auto) 2.8 TH/MM3 0.4 TH/MM3 Monocytes # (Auto) 0.7 TH/MM3 0.1 TH/MM3 Eosinophils # (Auto) 0.1 TH/MM3 0.0 TH/MM3 Basophils # (Auto) 0.1 TH/MM3 0.0 TH/MM3 CBC Comment DIFF FINAL AUTO DIFF Differential Comment FINAL DIFF MANUAL Prothrombin Time 11.1 SEC Prothromb Time International Ratio 1.1 RATIO Activated Partial Thromboplast Time 23.3 SEC Bedside Sodium 138 MMOL/L Bedside Potassium 2.9 MMOL/L Bedside Chloride 103 MMOL/L Bedside Blood Urea Nitrogen 14 MG/DL Bedside Creatinine 1.3 MG/DL Bedside Glucose 224 MG/DL Ethyl Alcohol Level 354 MG/DL Urine Opiates Screen NEG Urine Barbiturates Screen NEG Urine Amphetamines Screen NEG Urine Benzodiazepines Screen POS Urine Cocaine Screen NEG Urine Cannabinoids Screen NEG Blood Gas Puncture Site ART LINE Blood Gas Patient Temperature 98.6 Blood Gas HCO3 17 mmol/L Blood Gas Base Excess -10.7 mmol/L Blood Gas Oxygen Saturation 97 % Arterial Blood pH 7.15 Arterial Blood Partial Pressure CO2 50 mmHg Arterial Blood Partial Pressure O2 153 mmHg Arterial Blood Oxygen Content 15.8 Vol % Arterial Blood Carboxyhemoglobin 0.6 % Arterial Blood Methemoglobin 1.0 % Blood Gas Hemoglobin 11.5 G/DL Oxygen Delivery Device VENTILATOR Blood Gas Ventilator Setting PRVC/AC Blood Gas Inspired Oxygen 100 % Differential Total Cells Counted 100 Neutrophils % (Manual) 34 % Band Neutrophils % 26 % Lymphocytes % 37 % Monocytes % 2 % Neutrophils # (Manual) 0.9 TH/MM3 Metamyelocytes 1 % Platelet Estimate NORMAL Platelet Morphology Comment NORMAL Ovalocytes 1+ Blood Urea Nitrogen 7 MG/DL Creatinine 0.52 MG/DL Random Glucose 125 MG/DL Total Protein 4.7 GM/DL Albumin 2.3 GM/DL Calcium Level 5.9 MG/DL Phosphorus Level 2.7 MG/DL Alkaline Phosphatase 71 U/L Aspartate Amino Transf (AST/SGOT) 132 U/L Alanine Aminotransferase (ALT/SGPT) 58 U/L Total Bilirubin 0.4 MG/DL Sodium Level 145 MEQ/L Potassium Level 3.0 MEQ/L Chloride Level 117 MEQ/L Carbon Dioxide Level 16.8 MEQ/L Anion Gap 11 MEQ/L Estimat Glomerular Filtration Rate 137 ML/MIN Protein Corrected Calcium 7.0 MG/DL Test 01/17/18 06:09 01/17/18 11:50 01/17/18 13:01 01/17/18 13:39 Blood Gas Puncture Site ART LINE ART LINE ART LINE Blood Gas Patient Temperature 98.6 98.6 98.6 Blood Gas HCO3 18 mmol/L 16 mmol/L 19 mmol/L Blood Gas Base Excess -7.8 mmol/L -9.1 mmol/L -5.0 mmol/L Blood Gas Oxygen Saturation 94 % 97 % 94 % Arterial Blood pH 7.27 7.28 7.37 Arterial Blood Partial Pressure CO2 40 mmHg 36 mmHg 34 mmHg Arterial Blood Partial Pressure O2 92 mmHg 129 mmHg 80 mmHg Arterial Blood Oxygen Content 15.0 Vol % 13.0 Vol % 13.4 Vol % Arterial Blood Carboxyhemoglobin 0.9 % 0.7 % 0.9 % Arterial Blood Methemoglobin 1.1 % 1.0 % 1.0 % Blood Gas Hemoglobin 11.3 G/DL 9.4 G/DL 10.0 G/DL Oxygen Delivery Device VENTILATOR VENTILATOR Blood Gas Ventilator Setting PRVC/AC PRVC/R20/VT550/P5 Blood Gas Inspired Oxygen 50 % 100 % 50 % White Blood Count 5.5 TH/MM3 Red Blood Count 3.33 MIL/MM3 Hemoglobin 10.6 GM/DL Hematocrit 29.6 % Mean Corpuscular Volume 88.6 FL Mean Corpuscular Hemoglobin 31.7 PG Mean Corpuscular Hemoglobin Concent 35.7 % Red Cell Distribution Width 17.0 % Platelet Count 160 TH/MM3 Mean Platelet Volume 6.5 FL Neutrophils (%) (Auto) 77.4 % Lymphocytes (%) (Auto) 12.9 % Monocytes (%) (Auto) 9.5 % Eosinophils (%) (Auto) 0.0 % Basophils (%) (Auto) 0.2 % Neutrophils # (Auto) 4.3 TH/MM3 Lymphocytes # (Auto) 0.7 TH/MM3 Monocytes # (Auto) 0.5 TH/MM3 Eosinophils # (Auto) 0.0 TH/MM3 Basophils # (Auto) 0.0 TH/MM3 CBC Comment DIFF FINAL Differential Comment Blood Urea Nitrogen 6 MG/DL Creatinine 0.68 MG/DL Random Glucose 132 MG/DL Total Protein 4.5 GM/DL Albumin 2.1 GM/DL Calcium Level 6.3 MG/DL Phosphorus Level 1.6 MG/DL Magnesium Level 1.0 MG/DL Alkaline Phosphatase 49 U/L Aspartate Amino Transf (AST/SGOT) 85 U/L Alanine Aminotransferase (ALT/SGPT) 44 U/L Total Bilirubin 0.5 MG/DL Sodium Level 149 MEQ/L Potassium Level 3.3 MEQ/L Chloride Level 113 MEQ/L Carbon Dioxide Level 22.0 MEQ/L Anion Gap 14 MEQ/L Estimat Glomerular Filtration Rate 100 ML/MIN Protein Corrected Calcium 7.6 MG/DL Test 01/17/18 14:00 01/17/18 21:11 01/18/18 04:50 01/18/18 05:35 Blood Gas Puncture Site ART LINE LT RADIAL Blood Gas Patient Temperature 98.6 98.6 Blood Gas HCO3 23 mmol/L 25 mmol/L Blood Gas Base Excess -1.5 mmol/L 0.6 mmol/L Blood Gas Oxygen Saturation 95 % 97 % Arterial Blood pH 7.41 7.42 Arterial Blood Partial Pressure CO2 37 mmHg 38 mmHg Arterial Blood Partial Pressure O2 83 mmHg 173 mmHg Arterial Blood Oxygen Content 14.0 Vol % 13.5 Vol % Arterial Blood Carboxyhemoglobin 1.1 % 1.0 % Arterial Blood Methemoglobin 1.0 % 1.1 % Blood Gas Hemoglobin 10.4 G/DL 9.6 G/DL Oxygen Delivery Device VENTILATOR VENTILATOR Blood Gas Ventilator Setting PRVC/AC SEE COMMENT Blood Gas Inspired Oxygen 50 % 50 % Urine Color LIGHT-YELLOW Urine Turbidity CLEAR Urine pH 7.5 Urine Specific Section 1.027 Urine Protein NEG mg/dL Urine Glucose (UA) NEG mg/dL Urine Ketones NEG mg/dL Urine Occult Blood NEG Urine Nitrite NEG Urine Bilirubin NEG Urine Urobilinogen LESS THAN 2.0 MG/DL Urine Leukocyte Esterase NEG Urine WBC LESS THAN 1 /hpf Urine Bacteria RARE /hpf Microscopic Urinalysis Comment CATH-CULTURE IND White Blood Count 12.0 TH/MM3 Red Blood Count 3.21 MIL/MM3 Hemoglobin 9.7 GM/DL Hematocrit 28.2 % Mean Corpuscular Volume 87.9 FL Mean Corpuscular Hemoglobin 30.3 PG Mean Corpuscular Hemoglobin Concent 34.4 % Red Cell Distribution Width 17.2 % Platelet Count 158 TH/MM3 Mean Platelet Volume 6.3 FL Neutrophils (%) (Auto) 82.3 % Lymphocytes (%) (Auto) 7.9 % Monocytes (%) (Auto) 9.3 % Eosinophils (%) (Auto) 0.1 % Basophils (%) (Auto) 0.4 % Neutrophils # (Auto) 9.9 TH/MM3 Lymphocytes # (Auto) 0.9 TH/MM3 Monocytes # (Auto) 1.1 TH/MM3 Eosinophils # (Auto) 0.0 TH/MM3 Basophils # (Auto) 0.0 TH/MM3 CBC Comment DIFF FINAL Differential Comment Blood Urea Nitrogen 7 MG/DL Creatinine 0.65 MG/DL Random Glucose 115 MG/DL Total Protein 5.1 GM/DL Calcium Level 6.9 MG/DL Phosphorus Level 2.5 MG/DL Magnesium Level 2.4 MG/DL Sodium Level 144 MEQ/L Potassium Level 3.8 MEQ/L Chloride Level 111 MEQ/L Carbon Dioxide Level 26.1 MEQ/L Anion Gap 7 MEQ/L Estimat Glomerular Filtration Rate 106 ML/MIN Protein Corrected Calcium 7.9 MG/DL Test 01/19/18 04:11 01/19/18 05:30 Blood Gas Puncture Site MARBELLA Blood Gas Patient Temperature 98.6 Blood Gas HCO3 25 mmol/L Blood Gas Base Excess 0.6 mmol/L Blood Gas Oxygen Saturation 94 % Arterial Blood pH 7.40 Arterial Blood Partial Pressure CO2 41 mmHg Arterial Blood Partial Pressure O2 82 mmHg Arterial Blood Oxygen Content 17.1 Vol % Arterial Blood Carboxyhemoglobin 1.1 % Arterial Blood Methemoglobin 0.9 % Blood Gas Hemoglobin 12.9 G/DL Oxygen Delivery Device VENTILATOR Blood Gas Ventilator Setting SEE COMMENT Blood Gas Inspired Oxygen 30 % White Blood Count 10.5 TH/MM3 Red Blood Count 2.94 MIL/MM3 Hemoglobin 9.1 GM/DL Hematocrit 26.1 % Mean Corpuscular Volume 88.9 FL Mean Corpuscular Hemoglobin 30.9 PG Mean Corpuscular Hemoglobin Concent 34.7 % Red Cell Distribution Width 16.4 % Platelet Count 154 TH/MM3 Mean Platelet Volume 6.6 FL Neutrophils (%) (Auto) 84.4 % Lymphocytes (%) (Auto) 6.9 % Monocytes (%) (Auto) 5.7 % Eosinophils (%) (Auto) 2.5 % Basophils (%) (Auto) 0.5 % Neutrophils # (Auto) 8.9 TH/MM3 Lymphocytes # (Auto) 0.7 TH/MM3 Monocytes # (Auto) 0.6 TH/MM3 Eosinophils # (Auto) 0.3 TH/MM3 Basophils # (Auto) 0.1 TH/MM3 CBC Comment DIFF FINAL Differential Comment Blood Urea Nitrogen 6 MG/DL Creatinine 0.53 MG/DL Random Glucose 71 MG/DL Calcium Level 7.6 MG/DL Phosphorus Level 1.6 MG/DL Magnesium Level 1.7 MG/DL Sodium Level 142 MEQ/L Potassium Level 3.2 MEQ/L Chloride Level 108 MEQ/L Carbon Dioxide Level 28.1 MEQ/L Anion Gap 6 MEQ/L Estimat Glomerular Filtration Rate 134 ML/MIN Medical Decision Making Impression and Plan Impression: Fall Posterior right parietal & occipital convexity SAH Right occipital skull fracture Occipital stellate scalp laceration Right lateral aspect anterior inferior L5 vertebral body fracture Left L1 transverse process fracture Drowsy but opens eyes to voice. Moves all extremities to commands that are demonstrated. T max 100.1 this morning. Reviewed labs for today. Interval resolution of leukocytosis. Interval drop in haemoglobin level. Sodium 142. Hypokalemia. Hypophosphatemia. CT brain demonstrates posterior right parietal & occipital convexity SAH w/o mass effect or edema. The right occipital skull fracture is again noted. POD # 2 () s/p: Debridement & repair of scalp laceration, 4 cm Plan: Primary & critical care management per Trauma. Neuro checks. Stat CT for any decline in neuro status. Hold pharmacologic DVT prophylaxis. Mechanical DVT prophylaxis. Stress ulcer prophylaxis. Wean ventilation as tolerated. Anjel Francisco Jan 19, 2018 19:32
--- NOTE | 2018-01-19 21:00 | HHI.CCPN ---
Subjective Brief History This is a patient who was found on an embankment under a bridge. He was thought to have fallen from a height of approximately 30 feet. He had a GCS of 3 at the scene, was intubated at the scene, brought in as a Trauma Alert. On arrival the patient was on backboard and C-collar, unable to give a history or review of systems. By reports, the paramedics said he had a blood pressure in the 70s initially, which responded to fluids up into the 90s systolic. Patient was resuscitated according trauma principles Final diagnosis Loss of consciousness probable brain concussion with heavy EtOH intoxication Open skull fracture with laceration in the parieto-occipital area No apparent brain injury on initial CT scan however subarachnoid hemorrhage in parieto-occipital area right on follow-up CT Bilateral chest contusions and lung contusions Grade 2 splenic laceration L1 /L5 fracture 24 Hour Review/Hospital Course 01/18/2018 Patient neurologically stable Underwent yesterday a closure of laceration over the open skull fracture Repeat CAT scan of the brain reveals subarachnoid hemorrhage in the right parieto-occipital area Patient intubated ventilated Neuroprotective measures Versed fentanyl Hemodynamically still stabilizing from initial event Yesterday vasopressin DC/remains on Levophed at 10 mcg/min with orders to wean down Bilateral breath sounds and bilateral pulmonary contusions however on assist control ventilation good PO2 FiO2 gradient Renal function preserved Hemoglobin remains stable 01/19/2018 Neurologically patient is stable sedated on fentanyl and Versed We will gradually wake up the patient and perhaps be able to extubate in the next day or 2 depending on hemodynamic stability Hemodynamically patient is stable of all pressors Bilateral breath sounds on assist control ventilation and good PO2 FiO2 gradient Remains on Unasyn for perceived aspiration on the scene Plan Wean sedation Hopefully be extubating patient tomorrow Objective Vital Signs Date Time Temp Pulse Resp B/P (MAP) Pulse Ox O2 Delivery O2 Flow Rate FiO2 01/19/18 19:47 100 30 01/19/18 18:00 93 01/19/18 16:00 100.0 14 115/62 (79) Intake and Output 01/19/18 01/19/18 01/20/18 08:00 16:00 00:00 Intake Total 1827.3 ml 50 ml Output Total 1900 ml 3250 ml Balance -72.7 ml -3200 ml Result Diagram: 01/19/18 0530 01/19/18 0530 Other Results Microbiology Date/Time Source Procedure Growth Status 01/17/18 18:00 Sputum Endotracheal Gram Stain - Final Complete 01/17/18 18:00 Sputum Endotracheal Sputum Culture - Final LIGHT GROWTH NORMAL RESPIRATORY MARY Complete 01/17/18 21:11 Urine Catheterized Urine Urine Culture - Final NO GROWTH IN 48 HOURS. Complete Laboratory Tests Test 01/19/18 04:11 Blood Gas Puncture Site MARBELLA Blood Gas Patient Temperature 98.6 Blood Gas HCO3 25 mmol/L (22-26) Blood Gas Base Excess 0.6 mmol/L (-2-2) Blood Gas Oxygen Saturation 94 % (90-100) Arterial Blood pH 7.40 (7.380-7.420) Arterial Blood Partial Pressure CO2 41 mmHg (38-42) Arterial Blood Partial Pressure O2 82 mmHg (61-120) Arterial Blood Oxygen Content 17.1 Vol % (12.0-20.0) Arterial Blood Carboxyhemoglobin 1.1 % (0-4) Arterial Blood Methemoglobin 0.9 % (0-2) Blood Gas Hemoglobin 12.9 G/DL (12.0-16.0) Oxygen Delivery Device VENTILATOR Blood Gas Ventilator Setting SEE COMMENT Blood Gas Inspired Oxygen 30 % Imaging Last 24 hours Impressions Chest X-Ray 01/19/18 0600 Signed Impressions: Service Date/Time: Friday, January 19, 2018 04:59 - CONCLUSION: 1. Bibasilar patchy airspace disease, not significantly changed. Corby Goff MD Assessment and Plan Attestation Critical care time 32 minutes Abimbola Terrell MD Jan 19, 2018 21:00
[2018-01-20] VITALS (16 sets, daily range): BP systolic 106–140; BP diastolic 60–89; PULSE 69–86; RESP 14–29; TEMP 97.9–98.7; O2SAT 96–100
--- NOTE | 2018-01-20 00:15 | HHI.NSPN ---
History Chief Complaint: Unable to obtain due to patient's clinical condition. Exam Results Vital Signs Date Time Temp Pulse Resp B/P (MAP) Pulse Ox O2 Delivery O2 Flow Rate FiO2 01/19/18 22:00 84 01/19/18 20:00 98.6 14 130/78 (95) 100 01/19/18 20:00 40 Physical Examination GENERAL: Drowsy, opens eyes to voice. Interacts after that. Intubated & mechanically ventilated. No sedation. On Fentanyl 75 mcg/hr for pain control. No apparent distress. In soft wrist restraints. HEENT: Dressing intact to posterior scalp laceration. Dressing removed and laceration well-approximated w/johnna, no evident drainage, erythema or streaking, mid laceration abrasion. PERRLA 2 mm reactive. Orally intubated. OGT. MUSCULOSKELETAL: Moves all extremities to command. No evident clubbing or deformity. NEUROLOGICAL: Drowsy but opens eyes to voice. Nonverbal, intubated. Follows simple commands that are demonstrated. Moves all extremities to command. Attending Statement The exam, history, and the medical decision-making described in the above note were completed with the assistance of the mid-level provider. I reviewed and agree with the findings presented. I attest that I had a [id number] encounter with the patient on the same day, and personally performed and documented my assessment and findings in the medical record. On examination 01/19/2018 the patient remains moderately lethargic. No focal extremity deficit. Most recent CT 01/18/18 images reviewed and reveal right parieto-occipital subarachnoid hemorrhage, right occipital fracture. No significant mass effect. Lumbar spine images reveal a mild right anterior L5 fracture, left L1 transverse process fracture. Continuing ISC checks, Sam Mac MD Jan 20, 2018 00:15
[2018-01-20] MEDS: PANTOPRAZOLE SODIUM 40 MG VIAL IVP SCH (00:30)
[2018-01-20] MEDS: CHLORHEXIDINE GLUCONATE 2 % 1 PACK (2 CLOTHS) TOP SCH (01:00)
[2018-01-20] MEDS: RESP: ALBUTEROL 2.5 MG/IPRATROPIUM 0.5 MG NEB (SCH) NEB ×5 (03:18→20:51)
[2018-01-20] MEDS: AMPICILLIN-SULBACTAM INJ 3 GM in SODIUM CHLORIDE 0.9% INJ 100 ML IV SCH ×4 (04:19→22:08)
[2018-01-20] MEDS: VASOPRESSIN INJ 40 UNITS in SODIUM CHLORIDE 0.9% INJ 98 ML IV SCH (04:20)
[2018-01-20 05:24] LABS: AUTOMATED NEUTROPHIL # 10.1 TH/MM3 (1.8-7.7); BASOPHIL % 0.4 % (0.0-2.0); EOSINOPHIL # 0.2 TH/MM3 (0-0.4); HEMATOCRIT 25.3 % (39.0-51.0); HEMOGLOBIN 8.8 GM/DL (13.0-17.0); LYMPH % 5.4 % (9.0-44.0); LYMPHOCYTE # 0.6 TH/MM3 (1.0-4.8); MEAN CELL VOLUME 87.2 FL (80.0-100.0); MEAN CORPUSCULAR HEMOGLOBIN 30.5 PG (27.0-34.0); MEAN CORPUSCULAR HGB CONC 34.9 % (32.0-36.0); MEAN PLATELET VOLUME 6.6 FL (7.0-11.0); NEUT % 84.2 % (16.0-70.0); PLATELET COUNT 199 TH/MM3 (150-450); RED CELL DISTRIBUTION WIDTH 15.9 % (11.6-17.2); WHITE BLOOD COUNT 11.9 TH/MM3 (4.0-11.0)
--- NOTE | 2018-01-20 05:53 | RADRPT ---
EXAM DATE/TIME: 01/20/2018 04:57 [place] COMPARISON: Portable chest 01-19-18 INDICATIONS : Follow up trauma. Short of breath. MEDICAL HISTORY : None. SURGICAL HISTORY : None. ENCOUNTER: Subsequent ACUITY: 4 - 6 days PAIN SCORE: Non-responsive. LOCATION: Bilateral chest FINDINGS: A single view of the chest demonstrates persistent bibasilar densities. Heart normal in size. Endotra cheal tube, nasogastric tube and right clavian central line in stable position.. Osseous structures are intact. CONCLUSION: Stable bibasilar densities Corby Goff MD on January 20, 2018 at 5:49 Board Certified Radiologist. This report was verified electronically.
[2018-01-20 06:12] LABS: BICARBONATE 26.3 MEQ/L (21.0-32.0); CALCIUM 8.1 MG/DL (8.5-10.1); CREATININE 0.48 MG/DL (0.60-1.30); MAGNESIUM 1.8 MG/DL (1.5-2.5); PHOSPHORUS 2.8 MG/DL (2.5-4.9)
[2018-01-20] MEDS: fentaNYL 2,500 MCG/NS 250 ML IV PRN (07:00)
[2018-01-20] MEDS: DOCUSATE SODIUM 50 MG/SENNA 8.6 MG TAB PO SCH ×2 (08:24→21:00)
[2018-01-20] MEDS: CHLORHEXIDINE 0.12% (ORAL KIT) 15 ML CUP MT SCH (08:24)
[2018-01-20] MEDS: MAGNESIUM HYDROXIDE SUSP 30 ML CUP PO SCH ×3 (08:24→21:00)
[2018-01-20] MEDS: levETIRAcetam INJ 500 MG in SODIUM CHLORIDE 0.9% INJ 100 ML IV SCH ×2 (08:42→22:00)
--- NOTE | 2018-01-20 12:33 | HHI.NSPN ---
History Chief Complaint: Unable to obtain due to patient's mental status and language barrier. Interval History 01/17: This is a patient of unknown age, who was found in an embankment under a bridge. He was thought to have fallen approximately 30 feet. He had a GCS of 3 at the scene, was intubated and brought to the hospital for evaluation. The patient was placed in a cervical collar and underwent evaluation by trauma and neurosurgery consultation was placed because of an occipital skull fracture and some spine fractures. 01/18: Patient status post fall. Admitted to ICU because of unresponsiveness. Nurses report mild improvement neurological state 01/19: Patient drowsy. Opened eyes to voice and followed commands demonstrated to him. He is intubated and mechanically ventilated but not on any sedation. 01/20: This morning the patient is seen moving about in bed. He is moving all extremities spontaneously and purposefully. He has been extubated since seen yesterday. His eyes are closed when this practitioner enters the room but he opens them to voice. When questioned the patient states he only speaks [place] and no Somali. He does follow demonstrated simple commands and to a degree spoken ones as well. System Review Comments Unable to obtain due to patient's mental status and language barrier. Exam Results 01/18/18 01/18/18 01/19/18 01/19/18 01/20/18 01/20/18 06: 18:00 06: 18: 06: 18:00 Intake Total 2268 ml 1867.2 ml 1927.3 ml 50 ml 967.3 ml 205 ml Output Total 2725 ml 2250 ml 1900 ml 3250 ml 1000 ml Balance -457 ml -382.8 ml 27.3 ml -3200 ml -32.7 ml 205 ml Intake IV Total 2268 ml 1867.2 ml 1927.3 ml 567.3 ml 205 ml Tube Irrigant 50 ml Other 400 ml Output Urine Total 2525 ml 2200 ml 1800 ml 3250 ml 1000 ml Gastric Drainage Total 200 ml 50 ml 100 ml 0 ml # Bowel Movements 0 0 0 0 0 Vital Signs Date Time Temp Pulse Resp B/P (MAP) Pulse Ox O2 Delivery O2 Flow Rate FiO2 01/20/18 12:00 97.9 78 27 106/60 (75) 100 01/20/18 12:00 78 01/20/18 11:04 98 Nasal Cannula 4 01/20/18 10:00 75 01/20/18 08:39 Nasal Cannula 30 01/20/18 08:03 100 30 01/20/18 08:00 77 01/20/18 08:00 30 01/20/18 08:00 98.2 77 14 126/77 (93) 100 01/20/18 06:00 85 01/20/18 04:08 100 30 01/20/18 04:00 98.0 86 14 134/84 (101) 100 Arterial Line 01/20/18 04:00 86 01/20/18 04:00 40 01/20/18 02:00 69 01/20/18 01:24 100 30 01/20/18 00:00 98.0 70 14 140/89 (106) 100 01/20/18 00:00 40 01/20/18 00:00 70 01/19/18 22:00 84 01/19/18 20:00 98.6 86 14 130/78 (95) 100 01/19/18 20:00 86 01/19/18 20:00 40 01/19/18 19:47 100 30 01/19/18 18:00 93 01/19/18 16:00 100.0 84 14 115/62 (79) 100 01/19/18 16:00 82 01/19/18 16:00 40 01/19/18 14:00 93 01/19/18 12:00 99.8 90 14 107/62 (77) 98 01/19/18 12:00 40 01/19/18 12:00 91 01/19/18 11:57 98 30 01/19/18 11:50 30 01/19/18 10:00 98 01/19/18 08:14 98 30 01/19/18 08:00 100.1 84 14 122/56 (78) 99 01/19/18 08:00 40 01/19/18 08:00 84 01/19/18 06:00 79 01/19/18 04:00 80 01/19/18 04:00 35 01/19/18 04:00 98.8 80 14 137/63 (87) 100 01/19/18 03:28 100 30 01/19/18 02:54 71 139/72 01/19/18 02:00 69 01/19/18 00:00 69 01/19/18 00:00 98.1 69 14 136/75 (95) 100 01/19/18 00:00 35 01/18/18 23:39 100 35 01/18/18 22:00 73 01/18/18 20:41 100 40 01/18/18 20:00 90 01/18/18 20:00 40 01/18/18 20:00 98.8 74 14 120/61 (80) 100 01/18/18 18:20 82 118/53 01/18/18 18:00 84 01/18/18 16:00 92 01/18/18 16:00 40 01/18/18 16:00 100.4 92 14 136/58 (84) 100 01/18/18 15:19 100 40 01/18/18 14:00 88 01/18/18 12:30 92 112/46 01/18/18 12:00 40 01/18/18 12:00 100.0 92 14 130/52 (78) 100 01/18/18 12:00 92 01/18/18 10:00 90 01/18/18 08:00 99.3 90 20 127/55 (79) 100 01/18/18 08:00 40 01/18/18 08:00 90 01/18/18 07:36 100 40 01/18/18 07:00 80 118/56 01/18/18 06:26 82 124/60 01/18/18 06:08 82 122/56 01/18/18 06:00 82 01/18/18 05:51 83 126/59 01/18/18 04:35 97 136/58 01/18/18 04:00 99.6 63 20 129/72 (91) 96 01/18/18 04:00 102 01/18/18 04:00 50 01/18/18 03:29 100 50 01/18/18 02:00 82 01/18/18 00:48 86 99/44 01/18/18 00:36 84 98/44 01/18/18 00:24 100 50 01/18/18 00:01 85 114/48 01/18/18 00:00 50 01/18/18 00:00 84 01/18/18 00:00 99.7 85 20 103/44 (63) 100 01/17/18 22:09 93 105/45 01/17/18 22:00 93 01/17/18 20:08 100 50 01/17/18 20:00 50 01/17/18 20:00 98 01/17/18 20:00 100.0 90 20 112/52 (72) 100 01/17/18 19:08 95 101/45 01/17/18 18:39 100 100 01/17/18 18:00 95 01/17/18 16:30 110 130/56 01/17/18 16:14 112 130/54 01/17/18 16:00 50 01/17/18 16:00 116 01/17/18 16:00 99.7 116 20 136/58 (84) 98 01/17/18 16:00 116 136/58 01/17/18 15:45 101 140/60 01/17/18 15:30 95 144/64 01/17/18 15:15 91 148/72 01/17/18 14:59 90 150/78 01/17/18 14:52 100 50 01/17/18 14:00 86 01/17/18 13:00 90 121/70 01/17/18 12:45 100.8 90 20 121/70 (87) 95 01/17/18 12:45 50 Physical Examination GENERAL: Drowsy, opens eyes to voice. Interacts after that. No apparent distress. HEENT: Well-approximated posterior scalp laceration w/johnna intact, no evident drainage, erythema or streaking, mid laceration abrasion. PERRLA 3 mm reactive. MUSCULOSKELETAL: Moves all extremities spontaneously & purposefully. No evident clubbing or deformity. NEUROLOGICAL: Drowsy but opens eyes to voice. Speech muffled, speaks [place] only so limited responses. Follows demonstrated simple commands and some spoken ones. Motor strength appears to be strong but patient drowsy and covers self back up to sleep. Lab, Micro, Other Results Recent Impressions Chest X-Ray 01/20/18 0600 Signed Impressions: Service Date/Time: Saturday, January 20, 2018 04:57 - CONCLUSION: Stable bibasilar densities Corby Goff MD Chest X-Ray 01/19/18599 Signed Impressions: Service Date/Time: Friday, January 19, 2018 04:59 - CONCLUSION: 1. Bibasilar patchy airspace disease, not significantly changed. Corby Goff MD Head CT 01/18/18599 Signed Impressions: Service Date/Time: Thursday, January 18, 2018 04:00 - CONCLUSION: 1. Subtle areas of subarachnoid hemorrhage is now noted over the posterior right parietal and occipital convexities with no mass effect or edema. 2. Right occipital skull fracture again visualized. Julio C Koroma MD Chest X-Ray 01/18/18599 Signed Impressions: Service Date/Time: Thursday, January 18, 2018 02:54 - CONCLUSION: Mild interval improvement in the bilateral perihilar and bibasilar opacities. Julio C Koroma MD Lumbar Spine CT 01/17/18 1500 Signed Impressions: Service Date/Time: Wednesday, January 17, 2018 18:12 - CONCLUSION: 1. Fracturing of the anterior inferior right lateral aspect of L5 vertebral body. 2. Fracturing at the left L1 transverse process. Nicolas Wells MD Laboratory Tests Test 01/17/18 13:01 01/17/18 13:39 01/17/18 14:00 01/17/18 21:11 Blood Gas Puncture Site ART LINE ART LINE Blood Gas Patient Temperature 98.6 98.6 Blood Gas HCO3 19 mmol/L 23 mmol/L Blood Gas Base Excess -5.0 mmol/L -1.5 mmol/L Blood Gas Oxygen Saturation 94 % 95 % Arterial Blood pH 7.37 7.41 Arterial Blood Partial Pressure CO2 34 mmHg 37 mmHg Arterial Blood Partial Pressure O2 80 mmHg 83 mmHg Arterial Blood Oxygen Content 13.4 Vol % 14.0 Vol % Arterial Blood Carboxyhemoglobin 0.9 % 1.1 % Arterial Blood Methemoglobin 1.0 % 1.0 % Blood Gas Hemoglobin 10.0 G/DL 10.4 G/DL Oxygen Delivery Device VENTILATOR VENTILATOR Blood Gas Ventilator Setting PRVC/R20/VT550/P5 PRVC/AC Blood Gas Inspired Oxygen 50 % 50 % White Blood Count 5.5 TH/MM3 Red Blood Count 3.33 MIL/MM3 Hemoglobin 10.6 GM/DL Hematocrit 29.6 % Mean Corpuscular Volume 88.6 FL Mean Corpuscular Hemoglobin 31.7 PG Mean Corpuscular Hemoglobin Concent 35.7 % Red Cell Distribution Width 17.0 % Platelet Count 160 TH/MM3 Mean Platelet Volume 6.5 FL Neutrophils (%) (Auto) 77.4 % Lymphocytes (%) (Auto) 12.9 % Monocytes (%) (Auto) 9.5 % Eosinophils (%) (Auto) 0.0 % Basophils (%) (Auto) 0.2 % Neutrophils # (Auto) 4.3 TH/MM3 Lymphocytes # (Auto) 0.7 TH/MM3 Monocytes # (Auto) 0.5 TH/MM3 Eosinophils # (Auto) 0.0 TH/MM3 Basophils # (Auto) 0.0 TH/MM3 CBC Comment DIFF FINAL Differential Comment Blood Urea Nitrogen 6 MG/DL Creatinine 0.68 MG/DL Random Glucose 132 MG/DL Total Protein 4.5 GM/DL Albumin 2.1 GM/DL Calcium Level 6.3 MG/DL Phosphorus Level 1.6 MG/DL Magnesium Level 1.0 MG/DL Alkaline Phosphatase 49 U/L Aspartate Amino Transf (AST/SGOT) 85 U/L Alanine Aminotransferase (ALT/SGPT) 44 U/L Total Bilirubin 0.5 MG/DL Sodium Level 149 MEQ/L Potassium Level 3.3 MEQ/L Chloride Level 113 MEQ/L Carbon Dioxide Level 22.0 MEQ/L Anion Gap 14 MEQ/L Estimat Glomerular Filtration Rate 100 ML/MIN Protein Corrected Calcium 7.6 MG/DL Urine Color LIGHT-YELLOW Urine Turbidity CLEAR Urine pH 7.5 Urine Specific [place] 1.027 Urine Protein NEG mg/dL Urine Glucose (UA) NEG mg/dL Urine Ketones NEG mg/dL Urine Occult Blood NEG Urine Nitrite NEG Urine Bilirubin NEG Urine Urobilinogen LESS THAN 2.0 MG/DL Urine Leukocyte Esterase NEG Urine WBC LESS THAN 1 /hpf Urine Bacteria RARE /hpf Microscopic Urinalysis Comment CATH-CULTURE IND Test 01/18/18 04:50 01/18/18 05:35 01/19/18 04:11 01/19/18 05:30 White Blood Count 12.0 TH/MM3 10.5 TH/MM3 Red Blood Count 3.21 MIL/MM3 2.94 MIL/MM3 Hemoglobin 9.7 GM/DL 9.1 GM/DL Hematocrit 28.2 % 26.1 % Mean Corpuscular Volume 87.9 FL 88.9 FL Mean Corpuscular Hemoglobin 30.3 PG 30.9 PG Mean Corpuscular Hemoglobin Concent 34.4 % 34.7 % Red Cell Distribution Width 17.2 % 16.4 % Platelet Count 158 TH/MM3 154 TH/MM3 Mean Platelet Volume 6.3 FL 6.6 FL Neutrophils (%) (Auto) 82.3 % 84.4 % Lymphocytes (%) (Auto) 7.9 % 6.9 % Monocytes (%) (Auto) 9.3 % 5.7 % Eosinophils (%) (Auto) 0.1 % 2.5 % Basophils (%) (Auto) 0.4 % 0.5 % Neutrophils # (Auto) 9.9 TH/MM3 8.9 TH/MM3 Lymphocytes # (Auto) 0.9 TH/MM3 0.7 TH/MM3 Monocytes # (Auto) 1.1 TH/MM3 0.6 TH/MM3 Eosinophils # (Auto) 0.0 TH/MM3 0.3 TH/MM3 Basophils # (Auto) 0.0 TH/MM3 0.1 TH/MM3 CBC Comment DIFF FINAL DIFF FINAL Differential Comment Blood Urea Nitrogen 7 MG/DL 6 MG/DL Creatinine 0.65 MG/DL 0.53 MG/DL Random Glucose 115 MG/DL 71 MG/DL Total Protein 5.1 GM/DL Calcium Level 6.9 MG/DL 7.6 MG/DL Phosphorus Level 2.5 MG/DL 1.6 MG/DL Magnesium Level 2.4 MG/DL 1.7 MG/DL Sodium Level 144 MEQ/L 142 MEQ/L Potassium Level 3.8 MEQ/L 3.2 MEQ/L Chloride Level 111 MEQ/L 108 MEQ/L Carbon Dioxide Level 26.1 MEQ/L 28.1 MEQ/L Anion Gap 7 MEQ/L 6 MEQ/L Estimat Glomerular Filtration Rate 106 ML/MIN 134 ML/MIN Protein Corrected Calcium 7.9 MG/DL Blood Gas Puncture Site LT RADIAL MARBELLA Blood Gas Patient Temperature 98.6 98.6 Blood Gas HCO3 25 mmol/L 25 mmol/L Blood Gas Base Excess 0.6 mmol/L 0.6 mmol/L Blood Gas Oxygen Saturation 97 % 94 % Arterial Blood pH 7.42 7.40 Arterial Blood Partial Pressure CO2 38 mmHg 41 mmHg Arterial Blood Partial Pressure O2 173 mmHg 82 mmHg Arterial Blood Oxygen Content 13.5 Vol % 17.1 Vol % Arterial Blood Carboxyhemoglobin 1.0 % 1.1 % Arterial Blood Methemoglobin 1.1 % 0.9 % Blood Gas Hemoglobin 9.6 G/DL 12.9 G/DL Oxygen Delivery Device VENTILATOR VENTILATOR Blood Gas Ventilator Setting SEE COMMENT SEE COMMENT Blood Gas Inspired Oxygen 50 % 30 % Test 01/20/18 04:30 01/20/18 05:10 Blood Gas Puncture Site LT BRACHIAL Blood Gas Patient Temperature 98.6 Blood Gas HCO3 27 mmol/L Blood Gas Base Excess 2.1 mmol/L Blood Gas Oxygen Saturation 96 % Arterial Blood pH 7.40 Arterial Blood Partial Pressure CO2 44 mmHg Arterial Blood Partial Pressure O2 92 mmHg Arterial Blood Oxygen Content 12.4 Vol % Arterial Blood Carboxyhemoglobin 1.4 % Arterial Blood Methemoglobin 0.6 % Blood Gas Hemoglobin 9.1 G/DL Oxygen Delivery Device VENTILATOR Blood Gas Ventilator Setting PRVC/AC Blood Gas Inspired Oxygen 30 % White Blood Count 11.9 TH/MM3 Red Blood Count 2.90 MIL/MM3 Hemoglobin 8.8 GM/DL Hematocrit 25.3 % Mean Corpuscular Volume 87.2 FL Mean Corpuscular Hemoglobin 30.5 PG Mean Corpuscular Hemoglobin Concent 34.9 % Red Cell Distribution Width 15.9 % Platelet Count 199 TH/MM3 Mean Platelet Volume 6.6 FL Neutrophils (%) (Auto) 84.2 % Lymphocytes (%) (Auto) 5.4 % Monocytes (%) (Auto) 8.0 % Eosinophils (%) (Auto) 2.0 % Basophils (%) (Auto) 0.4 % Neutrophils # (Auto) 10.1 TH/MM3 Lymphocytes # (Auto) 0.6 TH/MM3 Monocytes # (Auto) 1.0 TH/MM3 Eosinophils # (Auto) 0.2 TH/MM3 Basophils # (Auto) 0.0 TH/MM3 CBC Comment DIFF FINAL Differential Comment Blood Urea Nitrogen 7 MG/DL Creatinine 0.48 MG/DL Random Glucose 85 MG/DL Calcium Level 8.1 MG/DL Phosphorus Level 2.8 MG/DL Magnesium Level 1.8 MG/DL Sodium Level 139 MEQ/L Potassium Level 3.2 MEQ/L Chloride Level 104 MEQ/L Carbon Dioxide Level 26.3 MEQ/L Anion Gap 9 MEQ/L Estimat Glomerular Filtration Rate 150 ML/MIN Medical Decision Making Impression and Plan Impression: Fall Posterior right parietal & occipital convexity SAH Right occipital skull fracture Occipital stellate scalp laceration Right lateral aspect anterior inferior L5 vertebral body fracture Left L1 transverse process fracture Drowsy but opens eyes to voice. Moves all extremities spontaneously & purposefully. Follows demonstrated commands and some spoken. T max 100.0 yesterday afternoon. Reviewed labs for today. Interval development of leukocytosis. Interval drop in haemoglobin level. Sodium 139. Hypokalemia stable. Interval resolution of hypophosphatemia. CT brain demonstrates posterior right parietal & occipital convexity SAH w/o mass effect or edema. The right occipital skull fracture is again noted. POD # 3 () s/p: Debridement & repair of scalp laceration, 4 cm Plan: Primary & critical care management per Trauma. Neuro checks. Stat CT for any decline in neuro status. Hold pharmacologic DVT prophylaxis. Mechanical DVT prophylaxis. Stress ulcer prophylaxis. Anjel Francisco Jan 20, 2018 12:33
[2018-01-20] MEDS ORDERED: MORPHINE SULFATE 4 MG/ML INJ SQ PRN (17:15)
[2018-01-20] MEDS: METHOCARBAMOL 500 MG TAB PO SCH ×3 (17:15→22:01)
[2018-01-20] MEDS: ACETAMINOPHEN 1000 MG/100 ML 100 ML IV SCH ×2 (17:23→23:21)
[2018-01-20] MEDS: LIDOCAINE HCL 5% PATCH T-DERMAL SCH (17:23)
--- NOTE | 2018-01-20 18:09 | HHI.CCPN ---
Subjective Brief History [place]: This is a 18 neri year old patient who was found on an embankment under a bridge. He was thought to have fallen from a height of approximately 30 feet. He had a GCS of 3 at the scene, was intubated at the scene, brought in as a Trauma Alert. On arrival the patient was on backboard and C-collar, unable to give a history or review of systems. By reports, the paramedics said he had a blood pressure in the 70s initially, which responded to fluids up into the 90s systolic. Patient was resuscitated according trauma principles Final diagnosis Loss of consciousness probable brain concussion with heavy EtOH intoxication Open skull fracture with laceration in the parieto-occipital area No apparent brain injury on initial CT scan however subarachnoid hemorrhage in parieto-occipital area right on follow-up CT Bilateral chest contusions and lung contusions LEFT rib fx (1) Grade 2 splenic laceration T11, L1 transverse process fxs L1 /L5 fracture 24 Hour Review/Hospital Course 01/18/2018 Patient neurologically stable Underwent yesterday a closure of laceration over the open skull fracture Repeat CAT scan of the brain reveals subarachnoid hemorrhage in the right parieto-occipital area Patient intubated ventilated Neuroprotective measures Versed fentanyl Hemodynamically still stabilizing from initial event Yesterday vasopressin DC/remains on Levophed at 10 mcg/min with orders to wean down Bilateral breath sounds and bilateral pulmonary contusions however on assist control ventilation good PO2 FiO2 gradient Renal function preserved Hemoglobin remains stable 01/19/2018 Neurologically patient is stable sedated on fentanyl and Versed We will gradually wake up the patient and perhaps be able to extubate in the next day or 2 depending on hemodynamic stability Hemodynamically patient is stable of all pressors Bilateral breath sounds on assist control ventilation and good PO2 FiO2 gradient Remains on Unasyn for perceived aspiration on the scene Plan Wean sedation Hopefully be extubating patient tomorrow 01/20/2018 Pt tolerated CPAP and had favorable weaning parameters Pt was successfully extubated and transitioned to a nasal cannula (Mckayla Hurtado) Objective Vital Signs Date Time Temp Pulse Resp B/P (MAP) Pulse Ox O2 Delivery O2 Flow Rate FiO2 01/20/18 16:00 76 01/20/18 16:00 98.6 28 126/71 (89) 99 01/20/18 11:04 Nasal Cannula 4 01/20/18 08:39 30 Intake and Output 01/20/18 01/20/18 01/21/18 08:00 16:00 00:00 Intake Total 967.3 ml 205 ml Output Total 1000 ml Balance -32.7 ml 205 ml (AdrianaAngelMcakyla Sandoval OPERATIONS ASST) Result Diagram: 01/23/18 0440 01/23/18 0440 Other Results Microbiology Date/Time Source Procedure Growth Status 01/17/18 18:00 Sputum Endotracheal Gram Stain - Final Complete 01/17/18 18:00 Sputum Endotracheal Sputum Culture - Final LIGHT GROWTH NORMAL RESPIRATORY MARY Complete 01/17/18 21:11 Urine Catheterized Urine Urine Culture - Final NO GROWTH IN 48 HOURS. Complete Laboratory Tests Test 01/20/18 04:30 Blood Gas Puncture Site LT BRACHIAL Blood Gas Patient Temperature 98.6 Blood Gas HCO3 27 mmol/L (22-26) Blood Gas Base Excess 2.1 mmol/L (-2-2) Blood Gas Oxygen Saturation 96 % (90-100) Arterial Blood pH 7.40 (7.380-7.420) Arterial Blood Partial Pressure CO2 44 mmHg (38-42) Arterial Blood Partial Pressure O2 92 mmHg (61-120) Arterial Blood Oxygen Content 12.4 Vol % (12.0-20.0) Arterial Blood Carboxyhemoglobin 1.4 % (0-4) Arterial Blood Methemoglobin 0.6 % (0-2) Blood Gas Hemoglobin 9.1 G/DL (12.0-16.0) Oxygen Delivery Device VENTILATOR Blood Gas Ventilator Setting PRVC/AC Blood Gas Inspired Oxygen 30 % Imaging Last 24 hours Impressions Chest X-Ray 01/20/18 0600 Signed Impressions: Service Date/Time: Saturday, January 20, 2018 04:57 - CONCLUSION: Stable bibasilar densities Corby Goff MD Objective Remarks GENERAL: This is a 32 year old male lying in bed. No distress noted. SKIN: Warm and dry. HEAD: Atraumatic. Normocephalic. EYES: PERRLA ENT: No nasal bleeding or discharge. Mucous membranes pink and moist. NECK: Trachea midline. No JVD. CARDIOVASCULAR: Regular rate and rhythm. RESPIRATORY: No accessory muscle use. Lungs are clear to auscultation. Breath sounds equal bilaterally. No distress or dyspnea. GASTROINTESTINAL: BS + x 4 quads. Abdomen soft, non-tender, nondistended. MUSCULOSKELETAL: Extremities without cyanosis, or edema. + peripheral pulses x 4 extremities. Warm with good capillary refill and sensation. [place]ETE. NEUROLOGICAL: Lethargic. (Mckayla Hurtado) Urinary Catheter Assessment Urinary Catheter: Yes Assessment to: Continue (Mckayla Hurtado) Vascular Central Line Catheter Vascular Central Line Catheter: Yes Assessment to: Continue Date of Insertion: Jan 17, 2018 Line: Central Venous Catheter Side: Right Location: Subclavian (Cordis) (Mckayla Hurtado) Assessment and Plan Assessment: (1) Head injury ICD Code: S09.90XA - Unspecified injury of head, initial encounter Status: Acute (2) Trauma ICD Code: T14.90XA - Injury, unspecified, initial encounter Status: Acute (3) Fall (on)(from) sidewalk curb, sequela ICD Code: W10.1XXS - Fall (on)(from) sidewalk curb, sequela Status: Acute Plan [place]: This is a 32-year-old male who fell off causeway landing on a concrete piling. GCS = 3. Covered in vomit, intubated on scene. Large amount of blood loss on scene, hypotensive. ETOH 354, + Benzos. Recieved 1 PRBC INJURIES: LEFT parietal scalp lac RIGHT occipital skull fx Aspiration LEFT rib fx (1) BILAT lung contusions L5 vertebral body fx T11, L1 transverse process fxs Grade II splenic lac PMHx: Procedures: 01/17: Scalp washout and repair Consults: [facility]. Neurosurgery. Case management. ____ Diet: NPO. ST consult post extubation Pulm: IS acapella, EZ pap. Pain: Oxycodone 5-10 mg po. Morphine 3 mg q 3h. Robaxin 500 mg q 8h. Lidoderm patch. OFIRMEV (for 1 day) Activity: BR. PT and OT ordered. GI: IV PRotonix Bowel: [place]-colace. MOM. LBM: o DVT: SCDs. LEFT parietal scalp lac RIGHT occipital skull fx SAH Neurosurgery consulted and assisted in management and care Supportive care Serial neuro checks Repeat CT brain - 01/18: CT brain - SAH RIGHT parietal and occipital. Seizure precautions Seizure prophylaxis with Keppra IV CT brain for any change in neurological status Provide analgesia for comfort and pain Head of bed elevated 30 Patient moves all extremities Aspiration LEFT rib fx (1) BILAT lung contusions Respiratory failure in trauma Ventilator management ---> progress to CPAP Passed spontaneous breathing trial and parameters Extubate patient O2 sats -monitor for hypoxemia Administer O2 as needed Aggressive pulmonary toileting - IS, acapella and EZ pap. Bronchodilators -DuoNeb's Chest x-ray is needed Pain management -transition to p.o./IV PRN meds Nursing bedside swallow eval Speech therapy for swallow eval post extubation for diet recommendation PT and OT ordered L5 vertebral body fx T11, L1 transverse process fxs Neurosurgery consulted and assisting in management and care Awaiting plan of care from NS Conservative management Bedrest - until directed by NS Pain management PT and OT ordered Grade II splenic lac Supportive care 01/17 CT abdomen- Mild free fluid in peroneal cavity. Conservative management Follow H&H H&H stable Transfuse for H&H less than 7.0 Monitor for signs and symptoms of bleeding Pain management PT and OT ordered (Mckayla Hurtado) Remarks Patient seen and examined the nurse practitioner, plan to extubate today, mental status improved, speech study after extubation (Annette Henry MD) Problem Qualifiers (1) Head injury: Qualified Codes: S09.90XA - Unspecified injury of head, initial encounter Mckayla Hurtado Jan 20, 2018 18:09 Annette Henry MD Jan 24, 2018 15:33
[2018-01-20] MEDS: ONDANSETRON HCL 4 MG/2 ML VIAL IV PUSH PRN (20:54)
[2018-01-21] VITALS (11 sets, daily range): BP systolic 103–125; BP diastolic 52–76; PULSE 70–86; RESP 18–35; TEMP 98.4–99.7; O2SAT 96–99
[2018-01-21] MEDS: PANTOPRAZOLE SODIUM 40 MG VIAL IVP SCH ×2 (01:19→23:01)
[2018-01-21] MEDS: RESP: ALBUTEROL 2.5 MG/IPRATROPIUM 0.5 MG NEB (SCH) NEB ×2 (03:29→08:03)
[2018-01-21] MEDS: AMPICILLIN-SULBACTAM INJ 3 GM in SODIUM CHLORIDE 0.9% INJ 100 ML IV SCH ×4 (03:52→21:11)
[2018-01-21] MEDS: CHLORHEXIDINE GLUCONATE 2 % 1 PACK (2 CLOTHS) TOP SCH (03:52)
[2018-01-21] MEDS: VASOPRESSIN INJ 40 UNITS in SODIUM CHLORIDE 0.9% INJ 98 ML IV SCH (05:00)
[2018-01-21] MEDS: ACETAMINOPHEN 1000 MG/100 ML 100 ML IV SCH ×4 (05:57→23:02)
[2018-01-21] MEDS: METHOCARBAMOL 500 MG TAB PO SCH ×3 (05:59→21:10)
[2018-01-21] MEDS: levETIRAcetam INJ 500 MG in SODIUM CHLORIDE 0.9% INJ 100 ML IV SCH ×2 (08:38→21:10)
[2018-01-21] MEDS: MAGNESIUM HYDROXIDE SUSP 30 ML CUP PO SCH ×2 (08:38→21:00)
[2018-01-21] MEDS: DOCUSATE SODIUM 50 MG/SENNA 8.6 MG TAB PO SCH ×2 (08:38→21:00)
[2018-01-21] MEDS: LIDOCAINE HCL 5% PATCH T-DERMAL SCH (09:00)
[2018-01-21] MEDS ORDERED: INFLUENZA VIRUS VACCINE (QUADRIVALENT) 0.5 ML SYR IM ONE (10:00)
--- NOTE | 2018-01-21 11:21 | HHI.NSPN ---
History Chief Complaint: "No, I'm good." Interval History 01/17: This is a patient of unknown age, who was found in an embankment under a bridge. He was thought to have fallen approximately 30 feet. He had a GCS of 3 at the scene, was intubated and brought to the hospital for evaluation. The patient was placed in a cervical collar and underwent evaluation by trauma and neurosurgery consultation was placed because of an occipital skull fracture and some spine fractures. 01/18: Patient status post fall. Admitted to ICU because of unresponsiveness. Nurses report mild improvement neurological state 01/19: Patient drowsy. Opened eyes to voice and followed commands demonstrated to him. He is intubated and mechanically ventilated but not on any sedation. 01/20: This morning the patient is seen moving about in bed. He is moving all extremities spontaneously and purposefully. He has been extubated since seen yesterday. His eyes are closed when this practitioner enters the room but he opens them to voice. When questioned the patient states he only speaks Cook Islander and no Slovenian. He does follow demonstrated simple commands and to a degree spoken ones as well. 01/21: When seen this morning the patient has the blankets up over his head. He looks up to voice and readily interacts. When asked if any headache, dizziness, visual problems or any pain, numbness or tingling to the extremities he states "No, I'm good." He is more interactive today. No evident sensorimotor deficits noted upon examination. He is oriented to person, time and being in a hospital. Exam Results 01/19/18 01/19/18 01/20/18 01/20/18 01/21/18 01/21/18 06: 18:00 06:00 18:00 06: 18:00 Intake Total 1927.3 ml 50 ml 967.3 ml 305 ml 250 ml Output Total 1900 ml 3250 ml 1000 ml 800 ml 500 ml Balance 27.3 ml -3200 ml -32.7 ml -495 ml -250 ml Intake IV Total 1927.3 ml 567.3 ml 305 ml Tube Irrigant 50 ml Other 400 ml 250 ml Output Urine Total 1800 ml 3250 ml 1000 ml 800 ml 500 ml Gastric Drainage Total 100 ml 0 ml # Bowel Movements 0 0 0 0 2 Vital Signs Date Time Temp Pulse Resp B/P (MAP) Pulse Ox O2 Delivery O2 Flow Rate FiO2 01/21/18 10:00 72 01/21/18 08:00 99.7 79 35 117/67 (84) 97 01/21/18 08:00 74 01/21/18 06:00 74 01/21/18 04:00 98.7 86 28 125/75 (92) 97 01/21/18 04:00 86 01/21/18 02:00 74 01/21/18 00:00 98.6 71 30 103/52 (69) 97 01/21/18 00:00 71 01/20/18 22:00 75 01/20/18 20:00 84 01/20/18 20:00 98.7 84 29 121/63 (82) 96 01/20/18 18:00 80 01/20/18 16:00 76 01/20/18 16:00 98.6 76 28 126/71 (89) 99 01/20/18 14:00 78 01/20/18 12:00 97.9 78 27 106/60 (75) 100 01/20/18 12:00 78 01/20/18 11:04 98 Nasal Cannula 4.00 01/20/18 11:04 98 Nasal Cannula 4 01/20/18 10:00 75 01/20/18 08:39 Nasal Cannula 30 01/20/18 08:03 100 30 01/20/18 08:00 77 01/20/18 08:00 30 01/20/18 08:00 98.2 77 14 126/77 (93) 100 01/20/18 06:00 85 01/20/18 04:08 100 30 01/20/18 04:00 98.0 86 14 134/84 (101) 100 Arterial Line 01/20/18 04:00 86 01/20/18 04:00 40 01/20/18 02:00 69 01/20/18 01:24 100 30 01/20/18 00:00 98.0 70 14 140/89 (106) 100 01/20/18 00:00 40 01/20/18 00:00 70 01/19/18 22:00 84 01/19/18 20:48 96 21 01/19/18 20:00 98.6 86 14 130/78 (95) 100 01/19/18 20:00 86 01/19/18 20:00 40 01/19/18 19:47 100 30 01/19/18 18:00 93 01/19/18 16:00 100.0 84 14 115/62 (79) 100 01/19/18 16:00 82 01/19/18 16:00 40 01/19/18 14:00 93 01/19/18 12:00 99.8 90 14 107/62 (77) 98 01/19/18 12:00 40 01/19/18 12:00 91 01/19/18 11:57 98 30 01/19/18 11:50 30 01/19/18 10:00 98 01/19/18 08:14 98 30 01/19/18 08:00 100.1 84 14 122/56 (78) 99 01/19/18 08:00 40 01/19/18 08:00 84 01/19/18 06:00 79 01/19/18 04:00 80 01/19/18 04:00 35 01/19/18 04:00 98.8 80 14 137/63 (87) 100 01/19/18 03:28 100 30 01/19/18 02:54 71 139/72 01/19/18 02:00 69 01/19/18 00:00 69 01/19/18 00:00 98.1 69 14 136/75 (95) 100 01/19/18 00:00 35 01/18/18 23:39 100 35 01/18/18 22:00 73 01/18/18 20:41 100 40 01/18/18 20:00 90 01/18/18 20:00 40 01/18/18 20:00 98.8 74 14 120/61 (80) 100 01/18/18 18:20 82 118/53 01/18/18 18:00 84 01/18/18 16:00 92 01/18/18 16:00 40 01/18/18 16:00 100.4 92 14 136/58 (84) 100 01/18/18 15:19 100 40 01/18/18 14:00 88 01/18/18 12:30 92 112/46 01/18/18 12:00 40 01/18/18 12:00 100.0 92 14 130/52 (78) 100 01/18/18 12:00 92 Physical Examination GENERAL: Awake & alert in the bed. Affect somewhat flat but he readily interacts. No apparent distress. HEENT: Well-approximated posterior scalp laceration w/johnna intact, no evident drainage, erythema or streaking, mid laceration abrasion. PERRLA 3 mm reactive, EOMI intact. MMM & pink, tongue midline to protrusion. MUSCULOSKELETAL: Moves all extremities spontaneously & purposefully. No evident clubbing or deformity. NEUROLOGICAL: Awake & alert, oriented to person, time & being in hospital. Speech fairly clear & appropriate. Follows simple commands w/o difficulty. CN II through XII appear grossly intact. Sensation to light touch intact to all extremities. Motor strength is 5/5 to all major flexion & extension muscle groups of the extremities. Lab, Micro, Other Results Recent Impressions Chest X-Ray 01/20/18599 Signed Impressions: Service Date/Time: Saturday, January 20, 2018 04:57 - CONCLUSION: Stable bibasilar densities Corby Goff MD Chest X-Ray 01/19/18599 Signed Impressions: Service Date/Time: Friday, January 19, 2018 04:59 - CONCLUSION: 1. Bibasilar patchy airspace disease, not significantly changed. Corby Goff MD Laboratory Tests Test 01/19/18 04:11 01/19/18 05:30 01/20/18 04:30 01/20/18 05:10 Blood Gas Puncture Site MARBELLA LT BRACHIAL Blood Gas Patient Temperature 98.6 98.6 Blood Gas HCO3 25 mmol/L 27 mmol/L Blood Gas Base Excess 0.6 mmol/L 2.1 mmol/L Blood Gas Oxygen Saturation 94 % 96 % Arterial Blood pH 7.40 7.40 Arterial Blood Partial Pressure CO2 41 mmHg 44 mmHg Arterial Blood Partial Pressure O2 82 mmHg 92 mmHg Arterial Blood Oxygen Content 17.1 Vol % 12.4 Vol % Arterial Blood Carboxyhemoglobin 1.1 % 1.4 % Arterial Blood Methemoglobin 0.9 % 0.6 % Blood Gas Hemoglobin 12.9 G/DL 9.1 G/DL Oxygen Delivery Device VENTILATOR VENTILATOR Blood Gas Ventilator Setting SEE COMMENT PRVC/AC Blood Gas Inspired Oxygen 30 % 30 % White Blood Count 10.5 TH/MM3 11.9 TH/MM3 Red Blood Count 2.94 MIL/MM3 2.90 MIL/MM3 Hemoglobin 9.1 GM/DL 8.8 GM/DL Hematocrit 26.1 % 25.3 % Mean Corpuscular Volume 88.9 FL 87.2 FL Mean Corpuscular Hemoglobin 30.9 PG 30.5 PG Mean Corpuscular Hemoglobin Concent 34.7 % 34.9 % Red Cell Distribution Width 16.4 % 15.9 % Platelet Count 154 TH/MM3 199 TH/MM3 Mean Platelet Volume 6.6 FL 6.6 FL Neutrophils (%) (Auto) 84.4 % 84.2 % Lymphocytes (%) (Auto) 6.9 % 5.4 % Monocytes (%) (Auto) 5.7 % 8.0 % Eosinophils (%) (Auto) 2.5 % 2.0 % Basophils (%) (Auto) 0.5 % 0.4 % Neutrophils # (Auto) 8.9 TH/MM3 10.1 TH/MM3 Lymphocytes # (Auto) 0.7 TH/MM3 0.6 TH/MM3 Monocytes # (Auto) 0.6 TH/MM3 1.0 TH/MM3 Eosinophils # (Auto) 0.3 TH/MM3 0.2 TH/MM3 Basophils # (Auto) 0.1 TH/MM3 0.0 TH/MM3 CBC Comment DIFF FINAL DIFF FINAL Differential Comment Blood Urea Nitrogen 6 MG/DL 7 MG/DL Creatinine 0.53 MG/DL 0.48 MG/DL Random Glucose 71 MG/DL 85 MG/DL Calcium Level 7.6 MG/DL 8.1 MG/DL Phosphorus Level 1.6 MG/DL 2.8 MG/DL Magnesium Level 1.7 MG/DL 1.8 MG/DL Sodium Level 142 MEQ/L 139 MEQ/L Potassium Level 3.2 MEQ/L 3.2 MEQ/L Chloride Level 108 MEQ/L 104 MEQ/L Carbon Dioxide Level 28.1 MEQ/L 26.3 MEQ/L Anion Gap 6 MEQ/L 9 MEQ/L Estimat Glomerular Filtration Rate 134 ML/MIN 150 ML/MIN Medical Decision Making Impression and Plan Impression: Fall Posterior right parietal & occipital convexity SAH Right occipital skull fracture Occipital stellate scalp laceration Right lateral aspect anterior inferior L5 vertebral body fracture Left L1 transverse process fracture Patient doing well and more alert & interactive today. Improved orientation. Moves all extremities spontaneously & purposefully. No evident sensorimotor deficits noted. Afebrile the past [address] brain demonstrates posterior right parietal & occipital convexity SAH w/o mass effect or edema. The right occipital skull fracture is again noted. POD #4 () s/p: Debridement & repair of scalp laceration, 4 cm Plan: Primary & critical care management per Trauma. Neuro checks. Stat CT for any decline in neuro status. Hold pharmacologic DVT prophylaxis. Mechanical DVT prophylaxis. Stress ulcer prophylaxis. Patient is able to be transferred to a regular med/surg floor from Neurosurgery' s perspective. Anjel Francisco Jan 21, 2018 11:21
[2018-01-21] MEDS: HEPARIN SODIUM - SQ 10,000 UNITS/ML VIAL SQ SCH ×2 (14:30→21:10)
--- NOTE | 2018-01-21 15:09 | HHI.CCPN ---
Subjective Brief History AK CHIN: This is a 18 neri year old patient who was found on an embankment under a bridge. He was thought to have fallen from a height of approximately 30 feet. He had a GCS of 3 at the scene, was intubated at the scene, brought in as a Trauma Alert. On arrival the patient was on backboard and C-collar, unable to give a history or review of systems. By reports, the paramedics said he had a blood pressure in the 70s initially, which responded to fluids up into the 90s systolic. Patient was resuscitated according trauma principles Final diagnosis Loss of consciousness probable brain concussion with heavy EtOH intoxication Open skull fracture with laceration in the parieto-occipital area No apparent brain injury on initial CT scan however subarachnoid hemorrhage in parieto-occipital area right on follow-up CT Bilateral chest contusions and lung contusions LEFT rib fx (1) Grade 2 splenic laceration T11, L1 transverse process fxs L1 /L5 fracture 24 Hour Review/Hospital Course 01/18/2018 Patient neurologically stable Underwent yesterday a closure of laceration over the open skull fracture Repeat CAT scan of the brain reveals subarachnoid hemorrhage in the right parieto-occipital area Patient intubated ventilated Neuroprotective measures Versed fentanyl Hemodynamically still stabilizing from initial event Yesterday vasopressin DC/remains on Levophed at 10 mcg/min with orders to wean down Bilateral breath sounds and bilateral pulmonary contusions however on assist control ventilation good PO2 FiO2 gradient Renal function preserved Hemoglobin remains stable 01/19/2018 Neurologically patient is stable sedated on fentanyl and Versed We will gradually wake up the patient and perhaps be able to extubate in the next day or 2 depending on hemodynamic stability Hemodynamically patient is stable of all pressors Bilateral breath sounds on assist control ventilation and good PO2 FiO2 gradient Remains on Unasyn for perceived aspiration on the scene Plan Wean sedation Hopefully be extubating patient tomorrow 01/21 patient has been successfully extubated yesterday His [place] Coma Score is 15 Is n.p.o. as he requires a speech and swallow study Plan transfer to the floor today Objective Vital Signs Date Time Temp Pulse Resp B/P (MAP) Pulse Ox O2 Delivery O2 Flow Rate FiO2 01/21/18 12:00 73 01/21/18 12:00 99.2 35 119/60 (79) 97 01/20/18 11:04 Nasal Cannula 4.00 01/20/18 08:39 30 Intake and Output 01/21/18 01/21/18 01/22/18 08:00 16:00 00:00 Intake Total 250 ml Output Total 500 ml Balance -250 ml Result Diagram: 01/20/18 0510 01/20/18 0510 Exam LABEL CODER Coma score is 15 Hemodynamic/Cardiac stable Pulmonary/Respiratory breath sounds clear bilateral Abdomen/GI Nutrition Soft Urinary Catheter Assessment Urinary Catheter: No Vascular Central Line Catheter Vascular Central Line Catheter: No Date of Insertion: Jan 17, 2018 Line: Central Venous Catheter Side: Right Location: Subclavian (Cordis) Assessment and Plan Assessment: (1) Head injury ICD Code: S09.90XA - Unspecified injury of head, initial encounter Status: Acute (2) Trauma ICD Code: T14.90XA - Injury, unspecified, initial encounter Status: Acute (3) Fall (on)(from) sidewalk curb, sequela ICD Code: W10.1XXS - Fall (on)(from) sidewalk curb, sequela Status: Acute Plan AK CHIN: This is a 32-year-old male who fell off causeway landing on a concrete piling. GCS = 3. Covered in vomit, intubated on scene. Large amount of blood loss on scene, hypotensive. ETOH 354, + Benzos. Recieved 1 PRBC INJURIES: LEFT parietal scalp lac RIGHT occipital skull fx Aspiration LEFT rib fx (1) BILAT lung contusions L5 vertebral body fx T11, L1 transverse process fxs Grade II splenic lac PMHx: Procedures: 01/17: Scalp washout and repair Consults: CCM. Neurosurgery. Case management. ____ Diet: NPO. ST consult post extubation Pulm: IS acapella, EZ pap. Pain: Oxycodone 5-10 mg po. Morphine 3 mg q 3h. Robaxin 500 mg q 8h. Lidoderm patch. OFIRMEV (for 1 day) Activity: BR. PT and OT ordered. GI: IV PRotonix Bowel: Bethany-colace. MOM. LBM: o DVT: SCDs. LEFT parietal scalp lac RIGHT occipital skull fx SAH Neurosurgery consulted and assisted in management and care Supportive care Serial neuro checks Repeat CT brain - 01/18: CT brain - SAH RIGHT parietal and occipital. Seizure precautions Seizure prophylaxis with Keppra IV CT brain for any change in neurological status Provide analgesia for comfort and pain Head of bed elevated 30 Patient moves all extremities Aspiration LEFT rib fx (1) BILAT lung contusions Respiratory failure in trauma Ventilator management ---> progress to CPAP Passed spontaneous breathing trial and parameters Extubate patient O2 sats -monitor for hypoxemia Administer O2 as needed Aggressive pulmonary toileting - IS, acapella and EZ pap. Bronchodilators -DuoNeb's Chest x-ray is needed Pain management -transition to p.o./IV PRN meds Nursing bedside swallow eval Speech therapy for swallow eval post extubation for diet recommendation PT and OT ordered L5 vertebral body fx T11, L1 transverse process fxs Neurosurgery consulted and assisting in management and care Awaiting plan of care from NS Conservative management Bedrest - until directed by NS Pain management PT and OT ordered Grade II splenic lac Supportive care 01/17 CT abdomen- Mild free fluid in peroneal cavity. Conservative management Follow H&H H&H stable Transfuse for H&H less than 7.0 Monitor for signs and symptoms of bleeding Pain management PT and OT ordered Assessment &plan January 21 Remains overall stable Transfer to the floor Physical therapy Diet after speech Problem Qualifiers (1) Head injury: Qualified Codes: S09.90XA - Unspecified injury of head, initial encounter Annette Henry MD Jan 21, 2018 15:09
[2018-01-21 16:43] LABS: BICARBONATE 29.1 MEQ/L (21.0-32.0); CALCIUM 8.1 MG/DL (8.5-10.1); CREATININE 0.52 MG/DL (0.60-1.30)
[2018-01-22] VITALS (7 sets, daily range): BP systolic 103–129; BP diastolic 55–83; PULSE 67–78; RESP 17–20; TEMP 98.1–99.6; O2SAT 93–99
[2018-01-22] MEDS: AMPICILLIN-SULBACTAM INJ 3 GM in SODIUM CHLORIDE 0.9% INJ 100 ML IV SCH (04:03)
[2018-01-22] MEDS: CHLORHEXIDINE GLUCONATE 2 % 1 PACK (2 CLOTHS) TOP SCH (04:03)
[2018-01-22] MEDS: VASOPRESSIN INJ 40 UNITS in SODIUM CHLORIDE 0.9% INJ 98 ML IV SCH (04:04)
[2018-01-22] MEDS: METHOCARBAMOL 500 MG TAB PO SCH ×3 (05:13→21:19)
[2018-01-22] MEDS: HEPARIN SODIUM - SQ 10,000 UNITS/ML VIAL SQ SCH ×3 (05:14→21:20)
[2018-01-22] MEDS ORDERED: MORPHINE SULFATE 4 MG/ML INJ IV PRN (08:15)
[2018-01-22] MEDS: DOCUSATE SODIUM 50 MG/SENNA 8.6 MG TAB PO SCH ×2 (09:10→21:00)
[2018-01-22] MEDS: levETIRAcetam 500 MG TAB PO SCH ×2 (09:10→21:19)
[2018-01-22] MEDS: MAGNESIUM HYDROXIDE SUSP 30 ML CUP PO SCH ×2 (09:10→21:00)
[2018-01-22] MEDS: LIDOCAINE HCL 5% PATCH T-DERMAL SCH (09:12)
--- NOTE | 2018-01-22 15:30 | HHI.NSPN ---
History Chief Complaint: Doing good Interval History 01/17: This is a patient of unknown age, who was found in an embankment under a bridge. He was thought to have fallen approximately 30 feet. He had a GCS of 3 at the scene, was intubated and brought to the hospital for evaluation. The patient was placed in a cervical collar and underwent evaluation by trauma and neurosurgery consultation was placed because of an occipital skull fracture and some spine fractures. 01/18: Patient status post fall. Admitted to ICU because of unresponsiveness. Nurses report mild improvement neurological state 01/19: Patient drowsy. Opened eyes to voice and followed commands demonstrated to him. He is intubated and mechanically ventilated but not on any sedation. 01/20: This morning the patient is seen moving about in bed. He is moving all extremities spontaneously and purposefully. He has been extubated since seen yesterday. His eyes are closed when this practitioner enters the room but he opens them to voice. When questioned the patient states he only speaks Belgian and no Ivorian. He does follow demonstrated simple commands and to a degree spoken ones as well. 01/21: When seen this morning the patient has the blankets up over his head. He looks up to voice and readily interacts. When asked if any headache, dizziness, visual problems or any pain, numbness or tingling to the extremities he states "No, I'm good." He is more interactive today. No evident sensorimotor deficits noted upon examination. He is oriented to person, time and being in a hospital. 01/22: The patient is awake in the bed when seen. He states he is good. He says he feels hot but no fevers have been documented. The scalp laceration looks good. There is no change in his sensorimotor exam. He does have some midline tender to the spine. Exam Results 01/20/18 01/20/18 01/21/18 01/21/18 01/22/18 01/22/18 06:00 18:00 06:00 18:00 06:00 18:00 Intake Total 967.3 ml 305 ml 250 ml 300 ml 845 ml Output Total 1000 ml 800 ml 500 ml Balance -32.7 ml -495 ml -250 ml 300 ml 845 ml Intake Oral 240 ml IV Total 567.3 ml 305 ml 300 ml 605 ml Other 400 ml 250 ml Output Urine Total 1000 ml 800 ml 500 ml # Voids 1 1 2 # Bowel Movements 0 0 2 1 1 1 Vital Signs Date Time Temp Pulse Resp B/P (MAP) Pulse Ox O2 Delivery O2 Flow Rate FiO2 01/22/18 12:24 93 21 01/22/18 12:00 99.0 74 18 128/75 (92) 94 01/22/18 08:00 98.1 78 17 125/83 (97) 96 01/22/18 04:04 98.6 70 18 129/79 (96) 99 01/22/18 01:10 98.2 75 20 104/55 (71) 96 01/21/18 20:00 98.4 81 25 116/76 (89) 99 01/21/18 20:00 99.3 79 18 122/60 (80) 96 01/21/18 18:00 71 01/21/18 18:00 78 01/21/18 16:00 98.5 76 34 123/69 (87) 97 01/21/18 16:00 71 01/21/18 14:00 70 01/21/18 12:00 73 01/21/18 12:00 99.2 73 35 119/60 (79) 97 01/21/18 10:00 72 01/21/18 08:00 99.7 79 35 117/67 (84) 97 01/21/18 08:00 74 01/21/18 06:00 74 01/21/18 04:00 98.7 86 28 125/75 (92) 97 01/21/18 04:00 86 01/21/18 02:00 74 01/21/18 00:00 98.6 71 30 103/52 (69) 97 01/21/18 00:00 71 01/20/18 22:00 75 01/20/18 20:00 84 01/20/18 20:00 98.7 84 29 121/63 (82) 96 01/20/18 18:00 80 01/20/18 16:00 76 01/20/18 16:00 98.6 76 28 126/71 (89) 99 01/20/18 14:00 78 01/20/18 12:00 97.9 78 27 106/60 (75) 100 01/20/18 12:00 78 01/20/18 11:04 98 Nasal Cannula 4.00 01/20/18 11:04 98 Nasal Cannula 4 01/20/18 10:00 75 01/20/18 08:39 Nasal Cannula 30 01/20/18 08:03 100 30 01/20/18 08:00 77 01/20/18 08:00 30 01/20/18 08:00 98.2 77 14 126/77 (93) 100 01/20/18 06:00 85 01/20/18 04:08 100 30 01/20/18 04:00 98.0 86 14 134/84 (101) 100 Arterial Line 01/20/18 04:00 86 01/20/18 04:00 40 01/20/18 02:00 69 01/20/18 01:24 100 30 01/20/18 00:00 98.0 70 14 140/89 (106) 100 01/20/18 00:00 40 01/20/18 00:00 70 01/19/18 22:00 84 01/19/18 20:48 96 21 01/19/18 20:00 98.6 86 14 130/78 (95) 100 01/19/18 20:00 86 01/19/18 20:00 40 01/19/18 19:47 100 30 01/19/18 18:00 93 01/19/18 16:00 100.0 84 14 115/62 (79) 100 01/19/18 16:00 82 01/19/18 16:00 40 Physical Examination GENERAL: Awake & alert in the bed. Affect flat. Readily interacts. No apparent distress. HEENT: Well-approximated posterior scalp laceration TTP w/johnna intact, no evident drainage, erythema or streaking, mid laceration abrasion. PERRLA 3 mm reactive, EOMI intact. MMM & pink, tongue midline to protrusion. MUSCULOSKELETAL: Moves all extremities spontaneously & purposefully. No evident clubbing or deformity. Mildly TTP along the cervicothoracic spine and moderately TTP of the lumbar spine, NEUROLOGICAL: Awake & alert, oriented to person, time & being in hospital. Speech clear & appropriate. Follows simple commands w/o difficulty. Sensation to light touch intact to all extremities. Motor strength is 5/5 to all major flexion & extension muscle groups of the extremities. Lab, Micro, Other Results Recent Impressions Chest X-Ray 01/20/18 0600 Signed Impressions: Service Date/Time: Saturday, January 20, 2018 04:57 - CONCLUSION: Stable bibasilar densities Corby Goff MD Laboratory Tests Test 01/20/18 04:30 01/20/18 05:10 01/21/18 15:52 Blood Gas Puncture Site LT BRACHIAL Blood Gas Patient Temperature 98.6 Blood Gas HCO3 27 mmol/L Blood Gas Base Excess 2.1 mmol/L Blood Gas Oxygen Saturation 96 % Arterial Blood pH 7.40 Arterial Blood Partial Pressure CO2 44 mmHg Arterial Blood Partial Pressure O2 92 mmHg Arterial Blood Oxygen Content 12.4 Vol % Arterial Blood Carboxyhemoglobin 1.4 % Arterial Blood Methemoglobin 0.6 % Blood Gas Hemoglobin 9.1 G/DL Oxygen Delivery Device VENTILATOR Blood Gas Ventilator Setting PRVC/AC Blood Gas Inspired Oxygen 30 % White Blood Count 11.9 TH/MM3 Red Blood Count 2.90 MIL/MM3 Hemoglobin 8.8 GM/DL Hematocrit 25.3 % Mean Corpuscular Volume 87.2 FL Mean Corpuscular Hemoglobin 30.5 PG Mean Corpuscular Hemoglobin Concent 34.9 % Red Cell Distribution Width 15.9 % Platelet Count 199 TH/MM3 Mean Platelet Volume 6.6 FL Neutrophils (%) (Auto) 84.2 % Lymphocytes (%) (Auto) 5.4 % Monocytes (%) (Auto) 8.0 % Eosinophils (%) (Auto) 2.0 % Basophils (%) (Auto) 0.4 % Neutrophils # (Auto) 10.1 TH/MM3 Lymphocytes # (Auto) 0.6 TH/MM3 Monocytes # (Auto) 1.0 TH/MM3 Eosinophils # (Auto) 0.2 TH/MM3 Basophils # (Auto) 0.0 TH/MM3 CBC Comment DIFF FINAL Differential Comment Blood Urea Nitrogen 7 MG/DL 7 MG/DL Creatinine 0.48 MG/DL 0.52 MG/DL Random Glucose 85 MG/DL 118 MG/DL Calcium Level 8.1 MG/DL 8.1 MG/DL Phosphorus Level 2.8 MG/DL Magnesium Level 1.8 MG/DL Sodium Level 139 MEQ/L 138 MEQ/L Potassium Level 3.2 MEQ/L 3.3 MEQ/L Chloride Level 104 MEQ/L 103 MEQ/L Carbon Dioxide Level 26.3 MEQ/L 29.1 MEQ/L Anion Gap 9 MEQ/L 6 MEQ/L Estimat Glomerular Filtration Rate 150 ML/MIN 182 ML/MIN Medical Decision Making Impression and Plan Impression: Fall Posterior right parietal & occipital convexity SAH Right occipital skull fracture Occipital stellate scalp laceration Right lateral aspect anterior inferior L5 vertebral body fracture Left L1 transverse process fracture Patient continues to do well. Moves all extremities spontaneously & purposefully. No evident sensorimotor deficits noted. Having some pain to back, worse at fractures. CT brain demonstrates posterior right parietal & occipital convexity SAH w/o mass effect or edema. The right occipital skull fracture is again noted. Physical Therapy recommends discharge home w/o any skilled needs but Occupational Therapy recommends inpatient therapy. POD #5 () s/p: Debridement & repair of scalp laceration, 4 cm Plan: Primary & critical care management per Trauma. Neuro checks. Stat CT for any decline in neuro status. LSO brace when OOB. Mobilise patient w/assistance. Physical & Occupational Therapy eval & tx. Hold pharmacologic DVT prophylaxis. Mechanical DVT prophylaxis. Stress ulcer prophylaxis. Anjel Francisco Jan 22, 2018 15:29
--- NOTE | 2018-01-22 15:40 | PD.HHIRBSE ---
Patient History Record/History Review Reason for Referral: The patient is a 32 year old unknown handed male status post traumatic brain injury (concussion) secondary to fall from a bridge while intoxicated sustained on 01/16/2018. His GCS was 3 at the scene and is now 15. Head CT showed posterior right parietal and occipital SAH without mass effect or shift. He is referred for baseline neurobehavioral status examination per trauma protocol to assess cognitive, behavioral and emotional aspects of the injury and to provide treatment recommendations. Neuropsych Precautions: To be determined. Past Surgical/Medical History Major surgery in last 100 days: Unknown Medication Active Medications Levetriacetam (Keppra) 500 mg Q12HR PO Last administered on 01/22/18at 09:10; Admin Dose 500 MG; Start 01/22/18 at 09:00 Morphine Sulfate (Morphine Inj) 3 mg Q3H PRN IV; Start 01/22/18 at 08:15 Mental Status Assessment Orientation: oriented to Self, oriented to Place, oriented to Time, oriented to Situation Mental Status: WFL: Thought processing, Language/Interactions, Attention, Learning/Memory, Problem-Solving, Visuospatial/Construction, Self-regulation, Other Observation The patient is alert and oriented to person, place, time and circumstances surrounding the reason for hospitalization. In terms of attention skills, the patient was able to remain on task and remember basic and complex instructions. In terms of memory functioning, the patient was able to demonstrate carry over after a brief period of time. The patient initiated spontaneous conversation. Speech was characterized by adequate prosody, grammar, articulation, volume and rate. Basic naming skills were intact. Language repetition skills were intact. The patients comprehensions for basic one- and two-stage commands were intact. Basic verbal abstraction and problem-solving skills were deferred. The patient appears to posses improving insight and awareness into their situation and within the limits of this brief evaluation, improving judgment. Adjustment/Coping Assessment Adjustment/Coping: None: Depression, Anxiety, Mild: Awareness, Insight, Moderate: Pain Observation The patients thought content was free from suicidal, homicidal or paranoid ideation, and the patients thought processes were somewhat bradyphrenic. The patients mood was guarded, and the affect was stable and appropriate. LTG Status: Deferred STG Status: Deferred Team Members: Neuropsychologist Behavior Assessment Agitation: None Treatment Engagement: Minimal Observation Behaviorally, the patient demonstrated no signs of agitation, impulsivity or disinhibition. There was no remarkable evidence of a formal thought disorder or psychosis. LTG - Status: Deferred STG Status: Deferred Team Members: Neuropsychologist Diagnosis/Discharge Plan Impression 32 year old male s/p complicated mild traumatic brain injury 2T fall from a bridge on 01/17/2018. Diagnosis: (1) Mild major neurocognitive disorder due to traumatic brain injury with behavioral disturbance (2) Alcohol dependence in controlled environment [facility] Level: VII:Automatic-appropriate Maximizing acute care outcome It is recommended that the patient be monitored for emergent behavioral impulsivity as the medical condition evolves. This patients neuropathological challenges may limit his rehabilitation potential going forward, and these challenges will require specialized therapeutic skills to maximize outcome. AAt this point in the recovery process, the patient does have cognitive capacity as the patient is generally able to understand a situation and its likely consequences, and he is able to manipulate information rationally. Cognitive capacity will be assessed throughout the recovery process. Discharge Planning Anticipated Problems Ongoing areas of concern will include behavioral impulsivity, lack of insight and judgment, which is expected to improve with time and treatment. Presently , the patient is alert and oriented. Treatment Plan This clinician will continue to follow with you throughout the course of this patients acute care treatment, and I will be available to meet with the patient s family/support system to facilitate their understanding and the ongoing care of their family member. The goals of neuropsychological intervention shall be both educational and supportive to the family/support system as is deemed clinically appropriate. Discharge Needs To be determined. Thank you Thank you for the opportunity to assist in this patients care. Nico Mcfarland, Ph.D., ABPP Board Certified in Clinical Neuropsychology [place] Board [employer] Professional Psychology [place] Licensed Psychologist #[id number] Nico Mcfarland PhD Jan 22, 2018 3:40 pm
--- NOTE | 2018-01-22 18:20 | HHI.PR ---
Subjective Subjective Notes Awake and alert Pain controlled Wants to go home, reports he lives with friends Objective Vitals/I&O Vital Signs Date Time Temp Pulse Resp B/P (MAP) Pulse Ox O2 Delivery O2 Flow Rate FiO2 01/22/18 12:24 93 21 01/22/18 12:00 99.0 74 18 128/75 (92) 01/20/18 11:04 Nasal Cannula 4.00 Labs Date/Time Source Procedure Growth Status 01/17/18 19:15 Blood Peripheral Aerobic Blood Culture - Final NO GROWTH IN 5 DAYS Complete 01/17/18 19:15 Blood Peripheral Anaerobic Blood Culture - Final NO GROWTH IN 5 DAYS Complete 01/17/18 18:00 Sputum Endotracheal Gram Stain - Final Complete 01/17/18 18:00 Sputum Endotracheal Sputum Culture - Final LIGHT GROWTH NORMAL RESPIRATORY MARY Complete 01/17/18 21:11 Urine Catheterized Urine Urine Culture - Final NO GROWTH IN 48 HOURS. Complete Radiology Last Impressions Chest X-Ray 01/20/18 0600 Signed Impressions: Service Date/Time: Saturday, January 20, 2018 04:57 - CONCLUSION: Stable bibasilar densities Corby Goff MD Head CT 01/18/18 0600 Signed Impressions: Service Date/Time: Thursday, January 18, 2018 04:00 - CONCLUSION: 1. Subtle areas of subarachnoid hemorrhage is now noted over the posterior right parietal and occipital convexities with no mass effect or edema. 2. Right occipital skull fracture again visualized. Julio C Koroma MD Lumbar Spine CT 01/17/18 1500 Signed Impressions: Service Date/Time: Wednesday, January 17, 2018 18:12 - CONCLUSION: 1. Fracturing of the anterior inferior right lateral aspect of L5 vertebral body. 2. Fracturing at the left L1 transverse process. Nicolas Wells MD Abdomen/Pelvis CT 01/17/18 0000 Signed Impressions: Service Date/Time: Wednesday, January 17, 2018 18:12 - CONCLUSION: 1. Low density at the superior medial aspect of the spleen from the prior injury. Acute extravasation is not seen on the current exam. 2. Mild amount of free fluid in the peroneal cavity in the around the superior aspect of the liver and spleen, inferior paracolic gutter regions, and in the pelvis. 3. Mild hepatic steatosis. 4. Bilateral areas of mild pleural effusion and atelectasis or consolidation. These findings have progressed since the prior exam. 5. Left L1 transverse process fracture and L5 vertebral body fracture. These were previously described. Nicolas Wells MD Pelvis X-Ray 01/16/182258 Signed Impressions: Service Date/Time: Tuesday, January 16, 2018 22:23 - CONCLUSION: 1. Suboptimal single view study secondary to motion artifact. 2. Apparent left sacral fracture. Julio C Koroma MD Maxillofacial CT 01/16/182258 Signed Impressions: Service Date/Time: Tuesday, January 16, 2018 23:02 - CONCLUSION: 1. Small air-fluid level in right maxillary sinus with no facial fracture. 2. Missing right central incisor. Julio C Koroma MD Chest CT 01/16/182258 Signed Impressions: Service Date/Time: Tuesday, January 16, 2018 23:18 - CONCLUSION: 1. Multiple areas of alveolar consolidation in both lower lobes which could represent lung contusion and or aspiration. There is no pneumothorax. 2. Subtle nondisplaced fracture of the left medial first rib. Nondisplaced fracture through the left transverse process of the T11 vertebra. The vertebral bodies are intact. 3. Visualization of the previously noted left L1 transverse fracture and splenic laceration. Please see abdomen CT for further details. Julio C Koroma MD Cervical Spine CT 01/16/182258 Signed Impressions: Service Date/Time: Tuesday, January 16, 2018 23:02 - CONCLUSION: 1. No cervical fracture. 2. Nondisplaced fracture of the left anterior first rib. 3. Visualization of the known right occipital fracture. Julio C Koroma MD Narrative Exam GENERAL: 32 year old well-nourished male lying in bed in no acute distress. SKIN: Warm and dry. Posterior scalp johnna C/D/I. HEAD:Normocephalic. ENT: No nasal bleeding or discharge. Mucous membranes pink and moist. NECK: Trachea midline. No JVD. CARDIOVASCULAR: Regular rate and rhythm. RESPIRATORY: No accessory muscle use. Clear to auscultation. Breath sounds equal bilaterally. GASTROINTESTINAL: Abdomen soft, non-tender, nondistended. + BS MUSCULOSKELETAL: Extremities without cyanosis, or edema. MAEW, + perfused NEUROLOGICAL: Awake and alert. Normal speech. A/P Assessment and Plan [place]: Fell off causeway landing on a concrete piling. GCS = 3. Covered in vomit , intubated on scene. Large amount of blood loss on scene, hypotensive. ETOH 354 , + Benzos. INJURIES: LEFT parietal scalp lac RIGHT occipital skull fx SAH Aspiration LEFT rib fx (1) BILAT lung contusions L5 vertebral body fx (non-op?) T11, L1 transverse process fxs Grade II splenic lac 01/16: Intubated 01/17: Debridement & repair of scalp laceration 01/20: Extubated LEFT parietal scalp lac, RIGHT occipital skull fx, SAH Neurosurgery consulted Supportive care 01/18: CT brain - SAH RIGHT parietal and occipital. PO Keppra x 7 days Aspiration, LEFT rib fx, BILAT lung contusions, Respiratory failure in trauma Supportive care Pulmonary toileting Pain control Bowel regimen OOB- PT and OT ordered 01/20: CXR shows stable bibasilar infiltrates Afebrile L5 vertebral body fx, T11, L1 transverse process fxs Neurosurgery consulted Non-operative? LSO brace Pain control OOB- PT and OT ordered Grade II splenic lac Supportive care 01/17 CT abdomen- Mild free fluid in peritoneal cavity. H&H stable Pain control OOB-PT and OT ordered Plan of care d/w patient at bedside. Collaborating Trauma MD agrees with plan. CM consulted to assist with DC planning. Plan to DC home once arrangements with family/friends are made. Remarks Patient seen and examined the nurse practitioner, continues to improve, continue rehabilitation, discharge planning Shan Enriquez Jan 22, 2018 18:20 Annette Henry MD Jan 24, 2018 16:28
[2018-01-23] VITALS: BP 110/68; PULSE 68; RESP 16; TEMP 98.7; O2SAT 98
[2018-01-23 04:00] VITALS: BP 115/75; PULSE 66; RESP 16; TEMP 99.5; O2SAT 96
[2018-01-23 04:51] LABS: AUTOMATED NEUTROPHIL # 6.3 TH/MM3 (1.8-7.7); BASOPHIL # 0.1 TH/MM3 (0-0.2); BASOPHIL % 0.7 % (0.0-2.0); EOSINOPHIL # 0.1 TH/MM3 (0-0.4); EOSINOPHIL % 1.1 % (0.0-4.0); HEMATOCRIT 27.4 % (39.0-51.0); HEMOGLOBIN 9.8 GM/DL (13.0-17.0); LYMPHOCYTE # 1.5 TH/MM3 (1.0-4.8); MEAN CELL VOLUME 84.5 FL (80.0-100.0); MEAN CORPUSCULAR HEMOGLOBIN 30.2 PG (27.0-34.0); MEAN CORPUSCULAR HGB CONC 35.7 % (32.0-36.0); MEAN PLATELET VOLUME 5.9 FL (7.0-11.0); MONO % 14.8 % (0.0-8.0); MONOCYTE # 1.4 TH/MM3 (0-0.9); NEUT % 67.4 % (16.0-70.0); PLATELET COUNT 581 TH/MM3 (150-450); RED BLOOD COUNT 3.24 MIL/MM3 (4.50-5.90); RED CELL DISTRIBUTION WIDTH 15.9 % (11.6-17.2); WHITE BLOOD COUNT 9.4 TH/MM3 (4.0-11.0)
[2018-01-23 05:26] LABS: BICARBONATE 26.6 MEQ/L (21.0-32.0); CALCIUM 8.1 MG/DL (8.5-10.1); CREATININE 0.55 MG/DL (0.60-1.30)
[2018-01-23] MEDS ORDERED: POTASSIUM CHLORIDE 10 MEQ CONTROLLED RELEASE TAB PO ONE (06:00)
[2018-01-23] MEDS: METHOCARBAMOL 500 MG TAB PO SCH ×2 (06:06→12:18)
[2018-01-23] MEDS: HEPARIN SODIUM - SQ 10,000 UNITS/ML VIAL SQ SCH (06:08)
[2018-01-23 08:00] VITALS: BP 127/62; PULSE 68; RESP 18; TEMP 98.1; O2SAT 95
[2018-01-23] MEDS: levETIRAcetam 500 MG TAB PO SCH (08:22)
[2018-01-23] MEDS: LIDOCAINE HCL 5% PATCH T-DERMAL SCH (08:22)
[2018-01-23] MEDS: MAGNESIUM HYDROXIDE SUSP 30 ML CUP PO SCH (08:23)
[2018-01-23] MEDS: DOCUSATE SODIUM 50 MG/SENNA 8.6 MG TAB PO SCH (08:24)
[2018-01-23] MEDS ORDERED: SODIUM CHLORIDE 1 GRAM TAB PO SCH (09:00)
[2018-01-23 12:00] VITALS: BP 106/71; PULSE 68; RESP 18; TEMP 98.8; O2SAT 96
[2018-01-23] MEDS ORDERED: POTASSIUM CHLORIDE 20 MEQ CONTROLLED RELEASE TAB PO ONE (12:00)
--- NOTE | 2018-01-23 13:46 | PD.NP.DS ---
Discharge Summary Reason for Referral: The patient is a 32 year old unknown handed male status post traumatic brain injury (concussion) secondary to fall from a bridge while intoxicated sustained on 01/16/2018. His GCS was 3 at the scene and is now 15. Head CT showed posterior right parietal and occipital SAH without mass effect or shift. He is referred for baseline neurobehavioral status examination per trauma protocol to assess cognitive, behavioral and emotional aspects of the injury and to provide treatment recommendations. He remained hospitalized for 7 days and was discharged from our service. Past Medical History: Please refer to the patient's history and physical for information concerning the patient's past medical, surgical, and psychiatric histories. Education/Learning Hx: The patient completed unknown years of education. There is no report of learning difficulties, grade repetitions or behavioral difficulties. The patient has a solid work history prior to his injury. The patient's marital status is unknown. The patient lives in [place], [place]. Premorbid Cognitive, Emotional and Behavioral Status: Tenuous. The patient has unknown years of education and a unknown work history prior to this injury. The patient has no prior psychiatric difficulties, as described above. Substance abuse history includes ETOH. Behavioral Reactions of Patient and Family/Support System: Unable to Assess. The patients family is experiencing ongoing issues of adjustment given the nature of the injury, and this aspect of recovery will require ongoing monitoring. Emotional/Behavioral Status of Patient and Family/Support System: Unable to Assess. Pertinent issues, if appropriate to this patients clinical care, are described in detail above. Treatment Interventions: During the course of their acute care stay, this patient and their family/ support system were provided information concerning the neuropsychological aspects of the injury, education regarding course of recovery, and psychological support in the form of counseling with the person served and the family/support system as documented in the neuropsychology service progress notes, as deemed clinically appropriate. Current, Cognitive, Emotional and Behavioral Status: Tenuous. This patient has experienced a severe injury, complicated by alcohol dependence, and will be adjusting to significant cognitive, emotional and behavioral challenges going forward. Impression at Discharge: The cognitive and behavioral status of this patient meets criteria for Mild Neurocognitive Disorder CODE: G31.84 The above listed diagnoses are supported by the following clinical criteria: Mild Neurocognitive Disorder: This person demonstrates a significant cognitive decline from a previous level of estimated baseline performance in one or more cognitive domains (complex attention, executive functioning, learning and memory , language, perceptual-motor, or social cognition) based on the patients / informants report, further documented by todays testing results, with these cognitive deficits not interfering with the patients independence in everyday activities. Status of Family/Support System Adjustment: Tenuous. The patients family/ support system will experience ongoing issues of adjustment given the nature of the injury, and this aspect of the patients recovery will require ongoing monitoring. Post Acute Recommendations: It is recommended that the patient continue to be monitored for behavioral impulsivity as they continue to be early in their course of recovery. This patients neuropathological challenges may limit their reintegration into work and family life going forward, and these challenges may require specialized therapeutic skills to maximize outcome. Thank you for the opportunity to assist in this patients care. Nico Mcfarland, Ph.D., ABPP Board Certified in Clinical Neuropsychology [place] [employer] Professional Psychology [place] Licensed Psychologist #[id number] Nico Mcfarland PhD Jan 23, 2018 1:46 pm
[2018-01-23] MEDS ORDERED: PERC5TAB12 PO (13:49)
[2018-01-23] MEDS ORDERED: PERI PO (13:49)
[2018-01-23] MEDS ORDERED: METH500T3 PO (13:49)
[2018-01-23 14:25] VITALS: O2SAT 98
--- NOTE | 2018-01-23 14:35 | HHI.NSPN ---
History Chief Complaint: Some left side rib pain. Interval History 01/17: This is a patient of unknown age, who was found in an embankment under a bridge. He was thought to have fallen approximately 30 feet. He had a GCS of 3 at the scene, was intubated and brought to the hospital for evaluation. The patient was placed in a cervical collar and underwent evaluation by trauma and neurosurgery consultation was placed because of an occipital skull fracture and some spine fractures. 01/18: Patient status post fall. Admitted to ICU because of unresponsiveness. Nurses report mild improvement neurological state 01/19: Patient drowsy. Opened eyes to voice and followed commands demonstrated to him. He is intubated and mechanically ventilated but not on any sedation. 01/20: This morning the patient is seen moving about in bed. He is moving all extremities spontaneously and purposefully. He has been extubated since seen yesterday. His eyes are closed when this practitioner enters the room but he opens them to voice. When questioned the patient states he only speaks [place] and no [place]ovan. He does follow demonstrated simple commands and to a degree spoken ones as well. 01/21: When seen this morning the patient has the blankets up over his head. He looks up to voice and readily interacts. When asked if any headache, dizziness, visual problems or any pain, numbness or tingling to the extremities he states "No, I'm good." He is more interactive today. No evident sensorimotor deficits noted upon examination. He is oriented to person, time and being in a hospital. 01/22: The patient is awake in the bed when seen. He states he is good. He says he feels hot but no fevers have been documented. The scalp laceration looks good. There is no change in his sensorimotor exam. He does have some midline tender to the spine. 01/23: This afternoon the patient is awake and alert sitting on the side of the bed. He says he is doing good. He does say he has some left-sided rib pain. He denies any headache or dizziness or any pain, numbness or tingling to the extremities. He does endorse some low back pain. There is no change in his exam. Exam Results 01/21/18 01/21/18 01/22/18 01/22/18 01/23/18 01/23/18 06:00 18:00 06:00 18:00 06:00 18:00 Intake Total 250 ml 300 ml 845 ml Output Total 500 ml Balance -250 ml 300 ml 845 ml Intake Oral 240 ml IV Total 300 ml 605 ml Other 250 ml Output Urine Total 500 ml # Voids 1 1 2 # Bowel Movements 2 1 1 1 Vital Signs Date Time Temp Pulse Resp B/P (MAP) Pulse Ox O2 Delivery O2 Flow Rate FiO2 01/23/18 12:00 98.8 68 18 106/71 (83) 96 01/23/18 08:00 98.1 68 18 127/62 (83) 95 01/23/18 04:00 99.5 66 16 115/75 (88) 96 01/23/18 00:00 98.7 68 16 110/68 (82) 98 01/22/18 20:00 99.5 70 18 103/65 (78) 96 01/22/18 16:00 99.6 67 17 111/62 (78) 95 01/22/18 12:24 93 21 01/22/18 12:00 99.0 74 18 128/75 (92) 94 01/22/18 08:00 98.1 78 17 125/83 (97) 96 01/22/18 04:04 98.6 70 18 129/79 (96) 99 01/22/18 01:10 98.2 75 20 104/55 (71) 96 01/21/18 20:00 98.4 81 25 116/76 (89) 99 01/21/18 20:00 99.3 79 18 122/60 (80) 96 01/21/18 18:00 71 01/21/18 18:00 78 01/21/18 16:00 98.5 76 34 123/69 (87) 97 01/21/18 16:00 71 01/21/18 14:00 70 01/21/18 12:00 73 01/21/18 12:00 99.2 73 35 119/60 (79) 97 01/21/18 10:00 72 01/21/18 08:00 99.7 79 35 117/67 (84) 97 01/21/18 08:00 74 01/21/18 06:00 74 01/21/18 04:00 98.7 86 28 125/75 (92) 97 01/21/18 04:00 86 01/21/18 02:00 74 01/21/18 00:00 98.6 71 30 103/52 (69) 97 01/21/18 00:00 71 01/20/18 22:00 75 01/20/18 20:00 84 01/20/18 20:00 98.7 84 29 121/63 (82) 96 01/20/18 18:00 80 01/20/18 16:00 76 01/20/18 16:00 98.6 76 28 126/71 (89) 99 Physical Examination GENERAL: Awake & alert in the bed. Affect somewhat flat. Readily interacts. No apparent distress. HEENT: Well-approximated posterior scalp laceration TTP w/johnna intact, no evident drainage, erythema or streaking, mid laceration abrasion. PERRLA 3 mm reactive, EOMI intact. MMM & pink, tongue midline to protrusion. MUSCULOSKELETAL: Moves all extremities spontaneously & purposefully. No evident clubbing or deformity. Mildly TTP along the lumbar spine, NEUROLOGICAL: AA&O x3. Speech clear & appropriate. Follows simple commands w/o difficulty. Sensation to light touch intact to all extremities. Motor strength is 5/5 to all major flexion & extension muscle groups of the extremities. Lab, Micro, Other Results Laboratory Tests Test 01/21/18 15:52 01/23/18 04:40 Blood Urea Nitrogen 7 MG/DL 6 MG/DL Creatinine 0.52 MG/DL 0.55 MG/DL Random Glucose 118 MG/DL 103 MG/DL Calcium Level 8.1 MG/DL 8.1 MG/DL Sodium Level 138 MEQ/L 135 MEQ/L Potassium Level 3.3 MEQ/L 2.9 MEQ/L Chloride Level 103 MEQ/L 98 MEQ/L Carbon Dioxide Level 29.1 MEQ/L 26.6 MEQ/L Anion Gap 6 MEQ/L 10 MEQ/L Estimat Glomerular Filtration Rate 182 ML/MIN 171 ML/MIN White Blood Count 9.4 TH/MM3 Red Blood Count 3.24 MIL/MM3 Hemoglobin 9.8 GM/DL Hematocrit 27.4 % Mean Corpuscular Volume 84.5 FL Mean Corpuscular Hemoglobin 30.2 PG Mean Corpuscular Hemoglobin Concent 35.7 % Red Cell Distribution Width 15.9 % Platelet Count 581 TH/MM3 Mean Platelet Volume 5.9 FL Neutrophils (%) (Auto) 67.4 % Lymphocytes (%) (Auto) 16.0 % Monocytes (%) (Auto) 14.8 % Eosinophils (%) (Auto) 1.1 % Basophils (%) (Auto) 0.7 % Neutrophils # (Auto) 6.3 TH/MM3 Lymphocytes # (Auto) 1.5 TH/MM3 Monocytes # (Auto) 1.4 TH/MM3 Eosinophils # (Auto) 0.1 TH/MM3 Basophils # (Auto) 0.1 TH/MM3 CBC Comment AUTO DIFF Differential Comment AUTO DIFF CONFIRMED Medical Decision Making Impression and Plan Impression: Fall Posterior right parietal & occipital convexity SAH Right occipital skull fracture Occipital stellate scalp laceration Right lateral aspect anterior inferior L5 vertebral body fracture Left L1 transverse process fracture Patient is doing well. He is neurologically intact. Mild low back pain. Reviewed labs for today. Improvement of anaemia from . Thrombocytosis. Sodium 135. Hypokalemia, potassium replenished. CT brain demonstrates posterior right parietal & occipital convexity SAH w/o mass effect or edema. The right occipital skull fracture is again noted. Physical Therapy recommends discharge home w/o any skilled needs but Occupational Therapy recommends inpatient therapy. POD #6 () s/p: Debridement & repair of scalp laceration, 4 cm Plan: Primary & critical care management per Trauma. Neuro checks. Stat CT for any decline in neuro status. LSO brace when OOB. Mobilise patient w/assistance. Physical & Occupational Therapy eval & tx. Hold pharmacologic DVT prophylaxis. Mechanical DVT prophylaxis. Stress ulcer prophylaxis. Patient is able to be discharged home from Neurosurgery's perspective. Follow up in the office approximately . Anjel Francisco Jan 23, 2018 14:35
--- NOTE | 2018-01-23 15:16 | HHI.DS ---
Discharge Summary Admission Date Jan 16, 2018 at 23:52 Discharge Date: Jan 23, 2018 Admitting Diagnosis TRAUMA HEAD INJURY Brief History S/P fall CBC/BMP: 01/23/18 0440 01/23/18 0440 Significant Findings Laboratory Tests Test 01/21/18 15:52 01/23/18 04:40 Creatinine 0.52 MG/DL (0.60-1.30) 0.55 MG/DL (0.60-1.30) Random Glucose 118 MG/DL (74-106) Calcium Level 8.1 MG/DL (8.5-10.1) 8.1 MG/DL (8.5-10.1) Potassium Level 3.3 MEQ/L (3.5-5.1) 2.9 MEQ/L (3.5-5.1) Red Blood Count 3.24 MIL/MM3 (4.50-5.90) Hemoglobin 9.8 GM/DL (13.0-17.0) Hematocrit 27.4 % (39.0-51.0) Platelet Count 581 TH/MM3 (150-450) Mean Platelet Volume 5.9 FL (7.0-11.0) Monocytes (%) (Auto) 14.8 % (0.0-8.0) Monocytes # (Auto) 1.4 TH/MM3 (0-0.9) Blood Urea Nitrogen 6 MG/DL (7-18) Sodium Level 135 MEQ/L (136-145) Imaging Last Impressions Chest X-Ray 01/20/18 0600 Signed Impressions: Service Date/Time: Saturday, January 20, 2018 04:57 - CONCLUSION: Stable bibasilar densities Corby Goff MD Head CT 01/18/18 0600 Signed Impressions: Service Date/Time: Thursday, January 18, 2018 04:00 - CONCLUSION: 1. Subtle areas of subarachnoid hemorrhage is now noted over the posterior right parietal and occipital convexities with no mass effect or edema. 2. Right occipital skull fracture again visualized. Julio C Koroma MD Lumbar Spine CT 01/17/18 1500 Signed Impressions: Service Date/Time: Wednesday, January 17, 2018 18:12 - CONCLUSION: 1. Fracturing of the anterior inferior right lateral aspect of L5 vertebral body. 2. Fracturing at the left L1 transverse process. Nicolas Wells MD Abdomen/Pelvis CT 01/17/18 0000 Signed Impressions: Service Date/Time: Wednesday, January 17, 2018 18:12 - CONCLUSION: 1. Low density at the superior medial aspect of the spleen from the prior injury. Acute extravasation is not seen on the current exam. 2. Mild amount of free fluid in the peroneal cavity in the around the superior aspect of the liver and spleen, inferior paracolic gutter regions, and in the pelvis. 3. Mild hepatic steatosis. 4. Bilateral areas of mild pleural effusion and atelectasis or consolidation. These findings have progressed since the prior exam. 5. Left L1 transverse process fracture and L5 vertebral body fracture. These were previously described. Nicolas Wells MD Pelvis X-Ray 01/16/182258 Signed Impressions: Service Date/Time: Tuesday, January 16, 2018 22:23 - CONCLUSION: 1. Suboptimal single view study secondary to motion artifact. 2. Apparent left sacral fracture. Julio C Koroma MD Maxillofacial CT 01/16/182258 Signed Impressions: Service Date/Time: Tuesday, January 16, 2018 23:02 - CONCLUSION: 1. Small air-fluid level in right maxillary sinus with no facial fracture. 2. Missing right central incisor. Julio C Koroma MD Chest CT 01/16/18 225 Signed Impressions: Service Date/Time: Tuesday, January 16, 2018 23:18 - CONCLUSION: 1. Multiple areas of alveolar consolidation in both lower lobes which could represent lung contusion and or aspiration. There is no pneumothorax. 2. Subtle nondisplaced fracture of the left medial first rib. Nondisplaced fracture through the left transverse process of the T11 vertebra. The vertebral bodies are intact. 3. Visualization of the previously noted left L1 transverse fracture and splenic laceration. Please see abdomen CT for further details. Julio C Koroma MD Cervical Spine CT 01/16/18 225 Signed Impressions: Service Date/Time: Tuesday, January 16, 2018 23:02 - CONCLUSION: 1. No cervical fracture. 2. Nondisplaced fracture of the left anterior first rib. 3. Visualization of the known right occipital fracture. Julio C Koroma MD PE at Discharge GENERAL: 32 year old well-nourished male lying in bed in no acute distress. SKIN: Warm and dry. Posterior scalp johnna C/D/I. HEAD:Normocephalic. ENT: No nasal bleeding or discharge. Mucous membranes pink and moist. NECK: Trachea midline. No JVD. CARDIOVASCULAR: Regular rate and rhythm. RESPIRATORY: No accessory muscle use. Clear to auscultation. Breath sounds equal bilaterally. GASTROINTESTINAL: Abdomen soft, non-tender, nondistended. + BS MUSCULOSKELETAL: Extremities without cyanosis, or edema. MAEW, + perfused NEUROLOGICAL: Awake and alert. Normal speech. Hospital Course EGEGIK: Fell off causeway landing on a concrete piling. GCS = 3. Covered in vomit , intubated on scene. Large amount of blood loss on scene, hypotensive. ETOH 354 , + Benzos. INJURIES: LEFT parietal scalp lac RIGHT occipital skull fx SAH Aspiration LEFT rib fx (1) BILAT lung contusions L5 vertebral body fx T11, L1 transverse process fxs Grade II splenic lac 01/16: Intubated 01/17: Debridement & repair of scalp laceration 01/20: Extubated LEFT parietal scalp lac, RIGHT occipital skull fx, SAH Neurosurgery consulted Supportive care 01/18: CT brain - SAH RIGHT parietal and occipital Avoid second head injury Postconcussive education Wound care: Cleanse scalp wound daily with soap and water. Leave open to air Staple removal in 2-3 more days Aspiration, LEFT rib fx, BILAT lung contusions, Respiratory failure in trauma Supportive care Pulmonary toileting Pain control Bowel regimen OOB- PT and OT ordered 01/20: CXR shows stable bibasilar infiltrates Afebrile L5 vertebral body fx, T11, L1 transverse process fxs Neurosurgery consulted, follow-up as outpatient Non-operative LSO brace Pain control OOB- PT and OT ordered Grade II splenic lac Supportive care 01/17 CT abdomen- Mild free fluid in peritoneal cavity H&H stable Pain control OOB-PT and OT ordered Follow-up with PCP in 1 week Plan of care d/w patient at bedside. Collaborating Trauma MD agrees with plan. CM consulted to assist with DC planning. Patient is clear from trauma surgery standpoint to safely discharge home. Pt Condition on Discharge: Stable Discharge Disposition: Discharge Home Discharge Instructions DIET: Follow Instructions for: As Tolerated, No Restrictions Activities you can perform: Full Weight Bearing Activities to Avoid: Concussion Sports, Contact Sports, Lifting/Bending, Strenuous Activity Other Activity Instructions: Wear LSO brace when out of bed. No heavy lifting. Shan Enriquez Jan 23, 2018 15:16
== END 2018-01-23 15:00 | disposition home or self-care (01) | DRG 957 ==
LOC: NEPI 22:58 → NEDA 23:52 → UNDOADMIN 01-17 → EDBD 01-17 → NEDA 01-17 → N03B 01-17 00:05 → NEDA 01-17 00:05 → N05B 01-21 21:39 → N03B 01-21 21:39
PROVIDERS: ADMIT Surgery; ATTEND Surgery
PROC: 30233N1 Transfusion of Nonautologous Red Blood Cells into Peripheral Vein, Percutaneous Approach (ICD-10-PCS; 2018-01-16)
PROC: 5A1955Z Respiratory Ventilation, Greater than 96 Consecutive Hours (ICD-10-PCS; 2018-01-17)
PROC: 02HV33Z Insertion of Infusion Device into Superior Vena Cava, Percutaneous Approach (ICD-10-PCS; 2018-01-17)
PROC: 0JQ00ZZ Repair Scalp Subcutaneous Tissue and Fascia, Open Approach (ICD-10-PCS; principal; 2018-01-17 11:10)
DX: S06.6X9A Traumatic subarachnoid hemorrhage with loss of consciousness of unspecified duration, initial encounter (principal); J96.00 Acute respiratory failure, unspecified whether with hypoxia or hypercapnia; S27.322A Contusion of lung, bilateral, initial encounter; T79.4XXA Traumatic shock, initial encounter; J69.0 Pneumonitis due to inhalation of food and vomit; S36.031A Moderate laceration of spleen, initial encounter; S22.089A Unspecified fracture of T11-T12 vertebra, initial encounter for closed fracture; E87.4 Mixed disorder of acid-base balance; S32.019A Unspecified fracture of first lumbar vertebra, initial encounter for closed fracture; S32.058A Other fracture of fifth lumbar vertebra, initial encounter for closed fracture; S22.32XA Fracture of one rib, left side, initial encounter for closed fracture; F10.220 Alcohol dependence with intoxication, uncomplicated; Y90.8 Blood alcohol level of 240 mg/100 ml or more; S02.11GA Other fracture of occiput, right side, initial encounter for closed fracture; R40.2431 Glasgow coma scale score 3-8, in the field [EMT or ambulance]; S01.02XA Laceration with foreign body of scalp, initial encounter; D64.9 Anemia, unspecified; D72.819 Decreased white blood cell count, unspecified; E83.39 Other disorders of phosphorus metabolism; E83.51 Hypocalcemia; E87.6 Hypokalemia; Z23 Encounter for immunization; W17.81XA Fall down embankment (hill), initial encounter
CPT/HCPCS: 36430; 36556; 36600; 36620; 70450; 70486; 71045; 71260; 72125; 72132; 72170; 74177; 80048; 80053; 80307; 81001; 82805; 83735; 84100; 84155; 85007; 85025; 85027; 85610; 85730; 86850; 86900; 86901; 86920; 87040; 87070; 87086; 87205; 87641; 90471; 90686; 90715; 94002; 94003; 94150; 94640; 94664; 94667; 96374; 96375; 99291; A0431-QM-SH; A0436-QM-SH; C9113; G0390; J0131; J0295; J0330; J0610; J0690; J1580; J1644; J1940; J1953; J2250; J2405; J3010; J3411; J3475; J3480; J7030; J7040; J7050; J7120; L0150; L0172; L0484; P9016; Q2038; Q9967